=== PATIENT | female | born 1940 | race Caucasian/White ===

== ENCOUNTER → 2016-04-20 | Outpatient (CLI) | payer OTHER ==
[~2016-04-20] MED LIST: CLX20 PO; DICL1GEL28 TOP; DYZ PO; MULT-506 PO; POTAPOW29 PO
[2016-04-20 14:29] LABS: ALT/SGPT 35 U/L (12-78); BLOOD UREA NITROGEN 15 mg/dl (7-18); BUN/CREATININE RATIO 12.8 (10-20); CALCIUM 9.8 mg/dl (8.5-10.1); CARBON DIOXIDE 28 mmol/L (21-32); CHLORIDE 100 mmol/L (98-107); GLUCOSE 114 mg/dl (70-99); POTASSIUM 3.4 mmol/L (3.5-5.1); SODIUM 140 mmol/L (136-145)
[2016-04-20 14:32] LABS: ALB/GLOB RATIO 0.7 (0.9-2); ALKALINE PHOSPHATASE 103 U/L (45-117); AST/SGOT 28 U/L (15-37)
[2016-04-20 14:49] LABS: MANUAL MICROSCOPIC REQUIRED? NO; REVIEW REQ? NO; URINE APPEARANCE CLEAR (CLEAR); URINE BILIRUBIN NEG (NEG); URINE COLOR YELLOW; URINE EPITHELIAL CELL AUTO >30 /lpf (0-5); URINE NITRITE NEG (NEG); URINE PH 6.5 (4.5-7.5); URINE SPECIFIC GRAVITY 1.018 (1.000-1.030); UROBILINOGEN NEG (NEG); ZZUR CULT IF INDIC CLEAN CATCH NO
== END | disposition home or self-care (01) ==
LOC: C.LABBC 09:59
PROVIDERS: ATTEND Internal Medicine
DX: R31.9 Hematuria, unspecified (principal)

== ENCOUNTER → 2016-11-19 | Outpatient (CLI) | payer OTHER ==
[2016-11-19 16:41] LABS: BASO % 0.6 %; BASO ABS # 0.04 K/uL (0-0.2); COMPLETE YES; EOS % 2.8 %; IG% 0.1 %; LYMPH % 35.5 %; LYMPH ABS # 2.37 K/uL (1.2-3.4); MEAN CORPUSCULAR HEMOGLOBIN 32.4 pg (25-34); MEAN CORPUSCULAR HGB CONC 34.1 g/dl (32-36); MEAN PLATELET VOLUME 9.6 fL (7.4-10.4); MONO % 6.3 %; NEUT % 54.7 %; PLATELET COUNT 207 K/uL (130-400); RED BLOOD COUNT 4.63 M/uL (4.2-5.4); WHITE BLOOD COUNT 6.67 K/uL (4.8-10.8)
[2016-11-19 17:13] LABS: ALT/SGPT 24 U/L (12-78); BLOOD UREA NITROGEN 16 mg/dl (7-18); BUN/CREATININE RATIO 16.3 (10-20); CALCIUM 9.8 mg/dl (8.5-10.1); CARBON DIOXIDE 30 mmol/L (21-32); CHLORIDE 101 mmol/L (98-107); CHOLESTEROL 251 mg/dl (0-200); GLUCOSE 97 mg/dl (70-99); POTASSIUM 3.4 mmol/L (3.5-5.1); SODIUM 140 mmol/L (136-145)
[2016-11-19 17:23] LABS: ALB/GLOB RATIO 0.7 (0.9-2); ALKALINE PHOSPHATASE 94 U/L (45-117); AST/SGOT 20 U/L (15-37); CHOLESTEROL/HDL RATIO 4.2; HDL CHOLESTEROL 60 mg/dl; LDL CHOLESTEROL CALCULATED 146 mg/dl; TRIGLYCERIDES 223 mg/dl (0-150); VERY LOW DENSITY LIPOPROT CALC 45 mg/dl
[2016-11-20 05:55] LABS: ESTIMATED AVERAGE GLUCOSE 126 mg/dl; HA1C FLAG Normal (Normal)
--- NOTE | 2016-11-26 11:09 | CODING QUERY MEDICAL NECESSITY ---
CQSUPPORTING DIAGNOSIS NEEDED A supporting diagnosis is required for the test/procedure performed on this patient in order for us to be reimbursed by the patient's insurance. Please provide a supporting diagnosis for the following test/procedure listed below next to the test name along with your signature. *If there is no additional diagnosis for this patient that would support the following test/procedure please document that below next to the test/procedure. Test(s)/Procedure(s) that require a supporting diagnosis: DOS 11/19/16 VITAMIN D TEST VITAMIN B12 TEST Provider Signature: Date: Thank you Arianna Strange Health Information Management Once completed, please kindly fax back to [phone] For questions please call [phone]
== END | disposition home or self-care (01) ==
LOC: C.LABBC 14:06
PROVIDERS: ATTEND Internal Medicine
DX: R53.83 Other fatigue (principal); R73.01 Impaired fasting glucose; I10 Essential (primary) hypertension

== ENCOUNTER → 2016-12-02 | Outpatient (CLI) | payer OTHER | END | disposition home or self-care (01) | LOC: C.PAPS 16:50 | PROVIDERS: ATTEND Obstetrics & Gynecology | DX: C54.1 Malignant neoplasm of endometrium (principal) ==

== ENCOUNTER 2018-06-07 07:17 | Observation (INO) ==
--- NOTE | 2018-05-15 14:22 | Anesthesiology Consultation ---
Date of Service May 15, 2018 Assessment & Plan (1) Encounter for pre-operative examination: - S/P [facility] admission= 02/08-02/10/18= Chemotherapy induced neutropenic fever/sepsis with hypotension/severe dehydration. Chemotherapy induced pancytopenia. Empiric antibiotic therapy with daptomycin/Zosyn IV given. Discharged on doxycycline BID. DINESH with creatinine 1.67 upon admission "normalized" during admission. - Inpatient EKG done 02/07/18 was sinus tachycardia at 121bpm; ST & T wave abnormality, consider lateral ischemia/TWI in anterior leads. Reviewed with Dr. Lai; he recommends having EKG repeated at PCP preop evaluation. Repeat EKG was done 05/26/18 and unremarkable. PCP evaluation= 05/31/18= estimated probability for perioperative RE 0.07% which is moderately low.. vital signs reviewed and were stable today except for low grade temp today to 99.2." PCP is having patient monitor temp at home; "from a general medical standpoint, patient is cleared for surgery pending normal temp on day of surgery.. she states that she is feeling the best that she has been in a while. Energy has been feeling good. No sick symptoms." - Thrombocytopenia stable with platelets at 89 on 05/16/18. OR made aware to have patient come in early for repeat CBC/determination if platelet/blood transfusion needed. Per surgeon, platelet transfusion needed if platelets <50 on repeat labs AM DOS. Per surgeon office, surgeon requests platelets/pRBC's be available for AM DOS if needed but no definitive orders would be needed at this time; it would be dependent upon AM DOS labs (blood bank aware). Will order CBC/T&S for AM DOS. Chart Review Chart Review: Acceptable Risk for Surgery (Pending review of clinical status, temperature and labs AM DOS) and Patient NOT seen in Pre Admission Testing History Surgery Operation Date: 06/07/18 07:00 Proposed Procedures p Left Breast Modified Radical Mastectomy - Vic Wheat DO, FACS Height/Weight Height: 5 ft 7 in Weight: 118.841 kg Allergies Allergy/AdvReac Type Severity Reaction Status Date / Time erythromycin base AdvReac Unknown GI UPSET Verified 05/12/18 12:04 Medications Home Medications Medication Instructions Recorded Confirmed Last Taken cholecalciferol (vitamin D3) 1,000 unit PO QAM 12/28/17 05/12/18 05/12/18 [Vitamin D3] citalopram 10 mg PO QAM 12/28/17 05/12/18 05/12/18 multivitamin 1 tab PO QAM 12/28/17 05/12/18 05/12/18 triamterene-hydrochlorothiazid 1 tab PO QAM 12/28/17 05/12/18 05/12/18 Potassium Aminobenzoate 100 mg PO UD 05/12/18 05/12/18 Unknown Past Medical History Medical History Anxiety Breast cancer S/P CHEMO COMPLETED 03/2018 History of uterine cancer Hypertension Morbid obesity Pancytopenia Past Family History Family History Sister Family history of cancer Past Surgical History Surgical History History of ankle surgery LEFT/NO HARDWARE History of bilateral tubal ligation History of bowel resection R/T BENIGN TUMOR History of colonoscopy History of left breast biopsy History of total abdominal hysterectomy and bilateral salpingo-oophorectomy History of total knee replacement LEFT Social History Smoking Status: Former smoker tobacco type: cigarettes Do You Dip or Chew Tobacco: No Smoking End Date: SMOKED WHEN TEENAGER Hx Alcohol Use: No Hx Substance Use: No substance use type: does not use Testing Electrocardiogram Date: 05/26/18 SR with sinus arrhythmia at 95bpm. NS ST/TWA. Chest X-Ray Date: 02/08/18 Findings: + NAD Cardiac mediastinal and hilar silhouettes are unchanged. Right internal jugular [id number] catheter is in stable positioning. Unchanged mild right hemidiaphragmatic elevation. No pneumothorax, pleural effusion or overt pulmonary edema. Subsegmental left basilar opacities suggest atelectasis. Echocardiogram Date: 04/19/18 EF 55-60%. No RWMA. No significant valvular disease (however valves were not well seen). Technically difficult study. Type I DD. Laboratory Results 05/16/18 WBC 7.12 H/H 10.4/32.3 PLATELETS 89 (surgeon aware) SODIUM 140 POTASSIUM 3.2 (pt on potassium supplementation) CHLORIDE 103 CO2 26 BUN 13 CREATININE 1.33 GLUCOSE 141
[~2018-06-07 07:17] MED LIST changes: +CEFAZOLIN 2000MG 2,000 MG/15 ML SYR IV SCH; -CLX20 PO; -DICL1GEL28 TOP; -DYZ PO; +LR 15ML/HR IV SCH; -MULT-506 PO; -POTAPOW29 PO
[2018-06-07 07:52] LABS: Basophils # (auto) 0.05 K/uL (0-0.2); Basophils % (auto) 0.8 %; Eosinophils % (auto) 4.9 %; Hematocrit (blood only) 35.4 % (37-47); Hemoglobin 11.4 g/dL (12.0-16.0); Immature Granulocytes # (auto) 0.02 K/uL (0.00-0.02); Immature Granulocytes % (auto) 0.3 %; Lymphocytes # (auto) 1.39 K/uL (1.2-3.4); Lymphocytes % (auto) 22.6 %; Mean Corpuscular Volume 107.6 fL (80-100); Mean Platelet Volume 8.7 fL (7.4-10.4); Monocytes # (auto) 0.46 K/uL (0.11-0.59); Monocytes % (auto) 7.5 %; Neutrophils # (auto) 3.92 K/uL (1.4-6.5); Neutrophils % (auto) 63.9 %; Platelet Count 137 K/uL (130-400); RDW Standard Deviation 58.9 fL (36.4-46.3); Red Blood Count 3.29 M/uL (4.2-5.4); White Blood Count 6.14 K/uL (4.8-10.8)
[2018-06-07 07:56] LABS: Mean Corpuscular Hgb Conc 32.2 g/dL (32-36)
[2018-06-07] MEDS ORDERED: fentaNYL citrate 100 MCG/2 ML VIAL ONE ×3 (08:40→11:27)
[2018-06-07] MEDS ORDERED: ONDANSETRON INJ 2 MG/ML 2 ML VIAL ONE (08:40)
[2018-06-07] MEDS ORDERED: MIDAZOLAM HCL 1 MG/ML 2ML VIAL ONE (08:40)
[2018-06-07] MEDS ORDERED: DEXAMETHASONE SOD INJ 4 MG/ML VIAL ONE (08:40)
[2018-06-07] MEDS ORDERED: PROPOFOL IV EMULSION 10 MG/ML 20 ML VIAL IV ONE (08:40)
[2018-06-07] MEDS ORDERED: LIDOCAINE HCL 2% 2 ML VIAL/AMP(20MG/ML) INFIL ONE (08:40)
[2018-06-07] MEDS ORDERED: BUPIVACAINE 0.5 % 5 MG/1 ML MPF 30ML VIAL ONE (09:32)
--- NOTE | 2018-06-07 09:33 | History & Physical Bridge Note ---
Date of Service June 07, 2018 History & Physical Bridge Note I have examined the patient, reviewed the History & Physical and in the interval since the performance of the History & Physical I have noted the following changes of clinical significance: no changes noted
[2018-06-07] MEDS ORDERED: ACETAMINOPHEN 1000 MG/100 ML IV IV ONE (09:36)
[2018-06-07] MEDS ORDERED: PHENYLEPHRINE 100MCG/ML 5ML SYR ONE (10:33)
[2018-06-07] MEDS ORDERED: ePHEDrine sulfate 50 MG/ML SYR ONE (10:33)
[2018-06-07] MEDS ORDERED: BUPIVACAINE LIPOSOME 1.3% 266 MG/20 ML VIAL ONE (11:10)
[2018-06-07] MEDS ORDERED: ONDANSETRON INJ 2 MG/ML 2 ML VIAL IV PRN ×2 (11:12→14:22)
[2018-06-07] MEDS ORDERED: fentaNYL citrate 100 MCG/2 ML VIAL IV PRN (11:12)
[2018-06-07] MEDS ORDERED: ePHEDrine sulfate 50 MG/ML AMP IV PRN (11:12)
[2018-06-07] MEDS ORDERED: PROMETHAZINE HCL 12.5 MG in SODIUM CHLORIDE 0.9% 50 ML IV PRN ×2 (11:12→14:22)
[2018-06-07] MEDS ORDERED: LABETALOL HCL IV 5 MG/ML 20ML IV PRN (11:12)
[2018-06-07] MEDS ORDERED: ATROPINE SULFATE 0.1 MG/ML 10ML SYR IV PRN (11:12)
--- NOTE | 2018-06-07 12:26 | Operative Report ---
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 Long thoracic and thoracodorsal identified and preserved. Good hemostasis. 2 MARVEL drains placed. 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 The risks of the procedure were discussed, all questions were answered, and the patient agreed to proceed with surgery as planned. Description of Procedure The patient was properly identified, consented, and taken to the operating room where she was placed in the supine position. General endotracheal anesthesia was induced. SCDs and a safety belt were placed. Preoperative antibiotics were administered. The patient's left chest, arm, and axilla were prepped and draped in the standard sterile fashion. Surgical timeout was performed and all parties were in agreement that this was the correct patient and procedure to be performed and we continued as planned. A transversely oriented elliptical incision was made that encompassed the nipple-arreolar complex on the left. Flaps were raised to the clavicle superiorly, the sternum medially, and the rectus sheath inferiorly. The breast was then taken off the chest wall including the pectoralis fascia from superior medial to inferior lateral. We then continued the dissection along the lateral border of the pectoralis muscle and continued with the axillary dissection. The clavicopectoral fascia was incised, we continued the dissection along the lateral border of the pectoralis muscle and under the pectoralis minor muscle. We excised level I and 2 lymph nodes. We then dissected tissue away from the axillary vein, being careful to leave a few millimeters of tissue to hopefully prevent lymphedema. We then continued our dissection along the chest wall, and the long thoracic nerve was identified. This was preserved throughout the case. We continued our dissection along the axillary vein until the thoracodorsal neurovascular bundle was identified, and this was also preserved throughout the case. We continued dissection along the medial portion of the latissimus dorsi muscle and down to the subscapularis and teres major muscle. We completed the dissection and the specimen was removed. The specimen was oriented. The wound was irrigated and hemostasis was confirmed. Two 10 mm MARVEL drains were placed, one in the left axilla, one underneath the mastectomy flap. These exited inferior to the incision and were secured into place with 2-0 nylon sutures. Exparel mixed with half percent Marcaine was injected along the flaps. The skin was closed with interrupted 3-0 Vicryl deep dermal sutures, followed by 4-0 Monocryl running subcuticular suture. Dermabond was placed over the wound. The patient was extubated in the operating room and taken to the PACU where she recovered without apparent incident. All sponge, instrument and needle counts were correct at the conclusion of the procedure. The patient tolerated the procedure well. The physician's business services assistant was present and scrubbed for the entire the case. He is critical in positioning the patient, retraction exposure, excision of the specimens, closure of the incisions, placement of drains. I attest to the content of the Intraoperative Record and any orders documented therein. Any exceptions are noted below.
--- NOTE | 2018-06-07 13:46 | Anesthesiology Progress Note ---
Date of Service June 07, 2018 Anesthesia Post Procedure Vital Signs Vital Signs: Temp Pulse Pulse Resp BP Pulse Ox 06/07/18 13:30 95 H 20 135/85 98 06/07/18 13:15 36.7 C 94 H 18 150/75 H 98 06/07/18 13:05 93 H 15 165/91 H 99 06/07/18 12:55 92 H 15 157/98 H 100 06/07/18 12:45 89 15 139/81 99 06/07/18 12:39 36.6 C 92 H 16 153/76 H 99 06/07/18 08:05 36.9 C 95 H 20 133/87 91 Notes Mental Status: alert / awake / arousable Patient Amnestic to Procedure: Yes Nausea / Vomiting: adequately controlled Pain: adequately controlled Airway Patency, RR, SpO2: stable & adequate BP & HR: stable & adequate Hydration State: stable & adequate Anesthetic Complications: no major complications apparent
[2018-06-07] MEDS ORDERED: [UNRECOGNIZED DRUG - OTHER] PO SCH (14:22)
[2018-06-07] MEDS ORDERED: MoRPHine SULFATE 2 MG/ML CARP IV PRN (14:22)
[2018-06-07] MEDS ORDERED: MoRPHine SULFATE 10 MG/ML CARP/VIAL IV PRN (14:22)
[2018-06-07] MEDS ORDERED: OXYCODONE/ACETAMINOPHEN 5mg/325mg TAB PO PRN (14:22)
[2018-06-07] MEDS: LACTATED RINGER'S 1,000 ML IV SCH (15:43)
--- NOTE | 2018-06-08 08:54 | Anesthesiology Progress Note ---
Date of Service June 08, 2018 Anesthesia Post Procedure Vital Signs Vital Signs: Temp Pulse Pulse Resp BP BP Pulse Ox 06/08/18 07:03 36.6 C 83 18 103/64 96 06/08/18 04:00 36.8 C 92 H 16 123/76 94 06/07/18 23:40 36.5 C 90 16 113/68 94 06/07/18 19:53 36.8 C 104 H 16 123/77 95 06/07/18 16:58 36.7 C 97 H 16 118/73 93 06/07/18 16:00 36.6 C 111 H 16 119/76 96 06/07/18 14:59 36.6 C 101 H 16 137/83 94 06/07/18 14:32 96 06/07/18 14:30 36.7 C 84 18 120/69 79 L 06/07/18 14:00 36.3 C L 89 18 136/69 100 06/07/18 13:45 90 20 122/75 98 06/07/18 13:30 95 H 20 135/85 98 06/07/18 13:15 36.7 C 94 H 18 150/75 H 98 06/07/18 13:05 93 H 15 165/91 H 99 06/07/18 12:55 92 H 15 157/98 H 100 06/07/18 12:45 89 15 139/81 99 06/07/18 12:39 36.6 C 92 H 16 153/76 H 99 Pain Intensity Left Foot: Pain Intensity: 3 Left Arm: Pain Intensity: 3 Notes Mental Status: alert / awake / arousable and participated in evaluation Patient Amnestic to Procedure: Yes Nausea / Vomiting: adequately controlled Pain: adequately controlled Airway Patency, RR, SpO2: stable & adequate BP & HR: stable & adequate Hydration State: stable & adequate Anesthetic Complications: no major complications apparent and Pt Satisfied with anesthetic care
[2018-06-08] MEDS ORDERED: TRIAMTERENE/HCTZ 37.5/25MG TAB PO SCH (09:00)
[2018-06-08] MEDS ORDERED: CITALOPRAM 20 MG TAB PO SCH (09:00)
--- NOTE | 2018-06-08 09:51 | Surgery Progress Note ---
Date of Service June 08, 2018 Assessment & Plan (1) Breast cancer: s/p left MRM, doing well d/c today after tolerates reg diet f/u in clinic as scheduled return precautions, activity restrictions, and wound care instructions reviewed path pending Present on Admission?: Yes Subjective 77 year old female pod #1 s/p left modified radical mastectomy. Doing well, weaned off oxygen, no pain. Physical Exam Vital Signs (Past 24 Hours): Last Vital Signs Temp 36.6 C 06/08/18 07:03 Pulse 83 06/08/18 07:03 Resp 18 06/08/18 07:03 BP 103/64 06/08/18 07:03 Pulse Ox 96 06/08/18 07:03 Constitutional: WD/WN, vitals as above Chest (Breasts): Additional Comments: left mastectomy scar with dermabond, no e/o infection. Flaps healthy. MARVEL's with ss drainage.
[2018-06-08] MEDS: LACTATED RINGER'S 1,000 ML IV SCH (10:46)
[2018-06-08] MEDS ORDERED: HEPARIN 100 UNIT/ML 5ML FLUSH ONE (14:03)
--- NOTE | 2018-06-13 03:13 | Discharge Summary ---
PRIMARY DISCHARGE DIAGNOSIS: Inflammatory left breast cancer. PROCEDURE PERFORMED: Left modified radical mastectomy. HOSPITAL COURSE: The patient is a 77-year-old female with left breast cancer taken to the operating room for a modified radical mastectomy. The procedure was well tolerated. She was transferred to the surgical floor for overnight observation. On postoperative day 1, she was having minimal pain. She was able to tolerate regular diet. MARVEL drainage was serosanguineous, 15 mL and 30 mL. She was stable for discharge home with the drains. DISCHARGE INSTRUCTIONS: Discharge home. Follow up with Dr. Wheat' office next week for removal of the drains. Empty and record daily drainage from each drain. DISCHARGE MEDICATIONS: Continue home meds, citalopram 10 mg daily, Vitamin D3 1000 units daily, daily multivitamin, potassium, benzonatate 100 mg daily, triamterene/hydrochlorothiazide 1 tablet daily. Can take [id number] Tylenol as needed for pain. MTDD
== END 2018-06-08 14:32 | disposition home or self-care (01) ==
LOC: ASU 07:17 → 3N 14:12 → INTOOBSV 14:12

== ENCOUNTER 2022-04-17 08:09 | Inpatient (IN) ==
[2022-04-17] MEDS ORDERED: cefTRIAXone SODIUM 2,000 MG/70 ML BAG IV STA (08:20)
--- NOTE | 2022-04-17 08:27 | Emergency Department Note ---
Impression & Plan Cellulitis, Hypoxia, Pneumonia, Acute hyponatremia, Hypokalemia ED Provider Note NAME: RENE AVILA AGE: 81 SEX: F : 1940 ARRIVES VIA: Ambulance INFORMANT: Patient, EMS personnel ED PROVIDER(S): Mann Greenberg DO CHIEF COMPLAINT: Rash HPI: The patient is an 81-year-old female who presented to the emergency department with multiple complaints. The patient states that she has had generalized weakness over the course of the last week. She states that she took medication a week ago for a cold. She states that she started noticing generalized weakness as well as a rash over the course the last week over the last few days she has become much worse. This morning she could not get out of bed so she called 911. She was noted to have hypoxia with an oxygen saturation of 88%. She was treated with a DuoNeb as well as IV Solu-Medrol prior to arrival. The patient is self right now offers very few complaints. She denies having any falls. She denies having any chest pain or difficulty with abdominal pain. The patient has a history of endometrial cancer as well as breast cancer ROS: See above HPI for pertinent positives & negatives. A total of 10 systems reviewed and were otherwise negative. PAST MEDICAL HISTORY: See Below PAST SURGICAL HISTORY: See Below FAMILY HISTORY: See Below SOCIAL HISTORY: See Below HOME MEDICATIONS: See Below ALLERGIES: See Below VITALS: See Below PHYSICAL EXAMINATION: GENERAL: The patient is awake and alert. The patient is comfortable appearing. EYES: The conjunctivae are clear. The pupils are round and reactive. EARS, NOSE, MOUTH AND THROAT: The nose is without any evidence of any deformity. Mucous membranes are dry. There were no lesions in the oral mucosa. NECK: The neck is nontender and supple. RESPIRATORY: Diminished breath sounds are noted in the left lung field. There were rales throughout the right lung field. There is no tachypnea or co nversational dyspnea. CARDIOVASCULAR: Tachycardic and irregular heart sounds were noted to auscultat ion. There is no definite murmur. GASTROINTESTINAL: The abdomen is soft. Abdomen is nontender. MUSCULOSKELETAL/EXTREMITIES: There is no evidence of gross deformity full range of motion is noted in the hips and shoulders. SKIN: There is a diffuse erythematous rash noted mostly over the trunk that was not raised. It had clear borders. It was blanchable over the majority of the rash. The rash does not appear to be painful. NEUROLOGIC: Patient is awake alert and oriented x3 MEDICAL DECISION MAKING: The patient is an 81-year-old female who presented to the emergency department by ambulance. The patient had findings consistent with cellulitis over her trunk. She was treated with IV antibiotics. I discussed the patient's laboratory and radiographic studies with her. She had an elevation in her lactic acid however her blood pressure was very high on initial evaluation. I do not feel that she is volume depleted and I do not feel that she would require a true fluid bolus at this time. I discussed the patient's laboratory and radiographic studies [facility] to evaluate the patient. The patient was also found to have hypokalemia and was treated with potassium replacement. Patient also had an elevation in her troponin. The patient was treated with IV Solu-Medrol and DuoNeb by the chronic care nurse prior to arrival. She was placed on supplemental oxygen. Triage Nursing notes reviewed. Prior medical records reviewed Vital Signs: reviewed and remarkable for no significant abnormalities Differential diagnosis: Infection, dehydration, metabolic abnormality, hypo/hyperglycemia, electrolyte disturbance, anemia, hypoxia, cardiac sources, intracerebral event, toxicologic, neurologic, as well as other pathologies. ER treatment provided: See below Diagnostics interpreted by me: ECG: EKG was obtained in the emergency department. My interpretation is sinus tachycardia 124 bpm. PACs as well as PVCs were noted. Nonspecific ST segment depressions were noted in the apical and low lateral leads. This was compared to a tracing from August 24, 2021. No specific changes were noted however the ectopy was not noted on the previous tracing. Cardiac Monitoring: An order was placed for continuous cardiac monitoring. The monitor shows a rate of 99 bpm with sinus rhythm. Laboratory studies: As stated above and show below. Imaging studies: See below. Radiographic imaging was reviewed by myself Consultation(s): I discussed this case with Dr. Wheeler who [facility]. Past Med/Surg History Medical History Anxiety MILD Breast cancer S/P CHEMO COMPLETED 03/2018- left breast RECENTLY RELEASED FROM ONCOLOGIST/ANNUAL VISITS NOW Extreme obesity History of uterine cancer REMOTE HX, SX INTERVENTION/ ? HX FEW RADIATION TX'S, PT NOT SURE Hypertension Port-A-Cath in place Rash Chronic dermatitis under surveillance by PCP (improved with abx) Surgical History H/O mastectomy LEFT H/O oral surgery History of ankle surgery LEFT/NO HARDWARE History of bilateral tubal ligation History of bowel resection R/T BENIGN TUMOR History of colonoscopy History of left breast biopsy History of removal of Port-a-Cath (09/02/21) Removal of Access Port Right(Right) - Vic Wheat DO, FACS History of total abdominal hysterectomy and bilateral salpingo-oophorectomy History of total knee replacement LEFT Family History Sister Family history of cancer Daughter Hx of CABG Coronary heart disease Myocardial infarction Father COPD (chronic obstructive pulmonary disease) Grandfather (Maternal) Colorectal cancer Denies family history of Ovarian cancer Prostate cancer Breast cancer Social History Smoking Status: Former smoker Second Hand Exposure: No; Hx Alcohol Use: No Hx Substance Use: No Preferred Language: Turkmen Communication Ability: Effective Visual Impairment: No Limitations Hearing Ability: Normal Plaster Pattern Caster Required: No Beliefs That Will Affect Care: None marital status: Single Current Living Situation: Family Current Living Situation Comment: DAUGHTER current occupational status: retired Feels Safe at Home: Yes Childhood Exposure to Second-Hand Smoke: No Dental Care, Regularly: No Physical Activity Frequency: 1-2 Times per Week Seatbelt Use: always Sunscreen Use: Yes Assistive Devices: Cane, Denture - Upper, Denture - Lower and Glasses Allergies Allergies Allergy/AdvReac Type Severity Reaction Status Date / Time iodine Allergy Mild Rash Verified 02/18/22 19:49 erythromycin base AdvReac Unknown GI UPSET Verified 12/28/21 08:32 gabapentin AdvReac Unknown make sick Verified 12/28/21 08:32 - nausea Statins AdvReac Unknown DIZZY AND Uncoded 12/28/21 08:32 LIGHTHEADEDNESS Home Meds Home Medications Medication Instructions Recorded Confirmed anastrozole 1 mg tablet 1 mg PO QAM 01/23/19 02/04/22 potassium gluconate 595 mg (99 mg) 99 mg PO QID 10/17/19 02/04/22 tablet,extended release calcium carbonate 600 mg calcium 600 mg PO DAILY 03/11/21 02/04/22 (1,500 mg) tablet multivitamin 1 tab PO DAILY 11/06/21 02/04/22 zinc gluconate 30 mg tablet 30 mg PO DAILY 12/15/21 02/04/22 Previous Rx's Medication Instructions Recorded multivitamin 1 tab PO QAM #30 tabs 07/26/18 citalopram 10 mg tablet 10 mg PO QAM #90 tabs 07/14/21 furosemide 20 mg tablet (Lasix) 20 mg PO DAILY #30 tabs 11/06/21 Results & Data (ED) Vital Signs Vital Signs - 24 hr 04/17/22 08:20 04/17/22 08:20 04/17/22 08:20 Temperature 36.9 C Temperature Source Oral Pulse Rate 120 H Pulse Rate [Right Finger] Pulse Rhythm Irregular Pulse Rhythm [Right Finger] Pulse Strength Normal Pulse Strength [Right Finger] Respiratory Rate 22 Respiratory Effort / Characteristics Spontaneous Respiratory Depth Normal Respiratory Pattern Regular Blood Pressure 159/132 H Blood Pressure [Right Arm] Blood Pressure Mean 141 Blood Pressure Mean [Right Arm] Blood Pressure Position Lying Blood Pressure Position [Right Arm] Pulse Oximetry 93 87 L 93 Oxygen Delivery Method Nasal Cannula Nasal Cannula Nasal Cannula Oxygen Flow Rate 3 0 3 Sepsis Recent Fever Within 48 Hours No Sepsis New/Unexplained Change in Mental Status No Sepsis Action Taken by Nursing MD Previously Notified Oxygen Flow Rate - Titration 3 Pulse Oximetry Post Tiitration 93 04/17/22 08:39 04/17/22 09:00 Temperature Temperature Source Pulse Rate 119 H Pulse Rate [Right Finger] 99 H Pulse Rhythm Pulse Rhythm [Right Finger] Irregular Pulse Strength Pulse Strength [Right Finger] Normal Respiratory Rate 26 H Respiratory Effort / Characteristics Spontaneous Respiratory Depth Normal Respiratory Pattern Regular Blood Pressure Blood Pressure [Right Arm] 135/68 Blood Pressure Mean Blood Pressure Mean [Right Arm] 90 Blood Pressure Position Blood Pressure Position [Right Arm] Lying Pulse Oximetry 94 Oxygen Delivery Method Nasal Cannula Oxygen Flow Rate 3 Sepsis Recent Fever Within 48 Hours Sepsis New/Unexplained Change in Mental Status Sepsis Action Taken by Nursing Oxygen Flow Rate - Titration Pulse Oximetry Post Tiitration Home Medications Current Medication List: was personally reviewed by me Laboratory Data Attestation: I reviewed the patient's lab results. 04/17/22 08:18 04/17/22 08:18 Lab Results 04/17/22 04/17/22 04/17/22 Range/Units 08:18 08:18 08:18 WBC 18.08 H (4.8-10.8) K/ul RBC 4.41 (4.20-5.40) M/uL Hgb 14.0 (12.0-16.0) g/dl Hct 41.9 (37.0-47.0) % MCV 95.0 (80.0-100.0) fL MCH 31.7 (25.0-34.0) pg MCHC 33.4 (32.0-36.0) g/dL RDW Std Deviation 48.3 H (36.4-46.3) fL RDW Coeff of Rosalinda 13.8 (11.5-14.5) % Plt Count 223 (130-400) K/uL MPV 9.3 L (9.4-12.4) fL Immature Gran % (Auto) 2.9 % Neut % (Auto) 88.5 % Lymph % (Auto) 6.7 % Blaine % (Auto) 1.5 % Eos % (Auto) 0.0 % Baso % (Auto) 0.4 % Neut # (Auto) 16.00 H (1.40-6.50) K/uL Lymph # (Auto) 1.21 (1.2-3.4) K/uL Blaine # (Auto) 0.28 (0.11-0.59) K/uL Eos # (Auto) 0.00 (0-0.50) K/uL Baso # (Auto) 0.07 (0-0.2) K/uL Immature Gran # (Auto) 0.52 H (0.01-0.20) K/uL Polychromasia 1+ PT 11.3 (9.0-12.0) Seconds INR 1.1 (0.9-1.1) APTT 29.6 (21.0-31.0) Seconds PTT Ratio 1.1 VBG pH (7.36-7.41) VBG pCO2 (38-50) mmHg VBG pO2 mmHg VBG HCO3 mmol/L VBG O2 Saturation % VBG Base Excess mEq/L Sodium 132 L (136-145) mmol/L Potassium 3.0 L (3.5-5.1) mmol/L Chloride 93 L (98-107) mmol/L Carbon Dioxide 26 (21-32) mmol/L Anion Gap 13 H (3-11) BUN 14 (6-23) mg/dl Creatinine 1.29 H (0.6-1.2) mg/dl Est Cr Clr Drug Dosing 49.4 ml/min Est GFR ( Amer) 45.3 ml/min Est GFR (Non-Af Amer) 39.1 ml/min BUN/Creatinine Ratio 10.9 (10-20) Glucose 200 H (70-99(Fasting)) mg/dl Lactate (0.4-2.0) mmol/L Calcium 9.3 (8.5-10.1) mg/dl Magnesium 1.5 L (1.7-2.4) mg/dl Total Bilirubin 0.9 (0.2-1.0) mg/dl Direct Bilirubin 0.3 H (0-0.2) mg/dl AST 59 H (13-39) U/L ALT 39 (7-52) U/L Alkaline Phosphatase 195 H (34-104) U/L Troponin I High Sens 25.2 H (0-14) pg/ml B-Natriuretic Peptide (0-100) pg/ml Total Protein 7.0 (6.0-8.3) gm/dl Albumin 2.9 L (3.4-5.0) gm/dl Procalcitonin (0-0.5) ng/ml SARS-CoV-2, RNA, NAAT (NEGATIVE) 04/17/22 04/17/22 04/17/22 Range/Units 08:18 08:35 08:35 WBC (4.8-10.8) K/ul RBC (4.20-5.40) M/uL Hgb (12.0-16.0) g/dl Hct (37.0-47.0) % MCV (80.0-100.0) fL MCH (25.0-34.0) pg MCHC (32.0-36.0) g/dL RDW Std Deviation (36.4-46.3) fL RDW Coeff of Rosalinda (11.5-14.5) % Plt Count (130-400) K/uL MPV (9.4-12.4) fL Immature Gran % (Auto) % Neut % (Auto) % Lymph % (Auto) % Blaine % (Auto) % Eos % (Auto) % Baso % (Auto) % Neut # (Auto) (1.40-6.50) K/uL Lymph # (Auto) (1.2-3.4) K/uL Blaine # (Auto) (0.11-0.59) K/uL Eos # (Auto) (0-0.50) K/uL Baso # (Auto) (0-0.2) K/uL Immature Gran # (Auto) (0.01-0.20) K/uL Polychromasia PT (9.0-12.0) Seconds INR (0.9-1.1) APTT (21.0-31.0) Seconds PTT Ratio VBG pH 7.47 H (7.36-7.41) VBG pCO2 38 (38-50) mmHg VBG pO2 53 mmHg VBG HCO3 28 mmol/L VBG O2 Saturation 89.7 % VBG Base Excess 3.9 mEq/L Sodium (136-145) mmol/L Potassium (3.5-5.1) mmol/L Chloride (98-107) mmol/L Carbon Dioxide (21-32) mmol/L Anion Gap (3-11) BUN (6-23) mg/dl Creatinine (0.6-1.2) mg/dl Est Cr Clr Drug Dosing ml/min Est GFR ( Amer) ml/min Est GFR (Non-Af Amer) ml/min BUN/Creatinine Ratio (10-20) Glucose (70-99(Fasting)) mg/dl Lactate 3.1 H* (0.4-2.0) mmol/L Calcium (8.5-10.1) mg/dl Magnesium (1.7-2.4) mg/dl Total Bilirubin (0.2-1.0) mg/dl Direct Bilirubin (0-0.2) mg/dl AST (13-39) U/L ALT (7-52) U/L Alkaline Phosphatase (34-104) U/L Troponin I High Sens (0-14) pg/ml B-Natriuretic Peptide (0-100) pg/ml Total Protein (6.0-8.3) gm/dl Albumin (3.4-5.0) gm/dl Procalcitonin 1.21 H (0-0.5) ng/ml SARS-CoV-2, RNA, NAAT (NEGATIVE) 04/17/22 04/17/22 Range/Units 08:35 09:51 WBC (4.8-10.8) K/ul RBC (4.20-5.40) M/uL Hgb (12.0-16.0) g/dl Hct (37.0-47.0) % MCV (80.0-100.0) fL MCH (25.0-34.0) pg MCHC (32.0-36.0) g/dL RDW Std Deviation (36.4-46.3) fL RDW Coeff of Rosalinda (11.5-14.5) % Plt Count (130-400) K/uL MPV (9.4-12.4) fL Immature Gran % (Auto) % Neut % (Auto) % Lymph % (Auto) % Blaine % (Auto) % Eos % (Auto) % Baso % (Auto) % Neut # (Auto) (1.40-6.50) K/uL Lymph # (Auto) (1.2-3.4) K/uL Blaine # (Auto) (0.11-0.59) K/uL Eos # (Auto) (0-0.50) K/uL Baso # (Auto) (0-0.2) K/uL Immature Gran # (Auto) (0.01-0.20) K/uL Polychromasia PT (9.0-12.0) Seconds INR (0.9-1.1) APTT (21.0-31.0) Seconds PTT Ratio VBG pH (7.36-7.41) VBG pCO2 (38-50) mmHg VBG pO2 mmHg VBG HCO3 mmol/L VBG O2 Saturation % VBG Base Excess mEq/L Sodium (136-145) mmol/L Potassium (3.5-5.1) mmol/L Chloride (98-107) mmol/L Carbon Dioxide (21-32) mmol/L Anion Gap (3-11) BUN (6-23) mg/dl Creatinine (0.6-1.2) mg/dl Est Cr Clr Drug Dosing ml/min Est GFR ( Amer) ml/min Est GFR (Non-Af Amer) ml/min BUN/Creatinine Ratio (10-20) Glucose (70-99(Fasting)) mg/dl Lactate (0.4-2.0) mmol/L Calcium (8.5-10.1) mg/dl Magnesium (1.7-2.4) mg/dl Total Bilirubin (0.2-1.0) mg/dl Direct Bilirubin (0-0.2) mg/dl AST (13-39) U/L ALT (7-52) U/L Alkaline Phosphatase (34-104) U/L Troponin I High Sens (0-14) pg/ml B-Natriuretic Peptide 80 (0-100) pg/ml Total Protein (6.0-8.3) gm/dl Albumin (3.4-5.0) gm/dl Procalcitonin (0-0.5) ng/ml SARS-CoV-2, RNA, NAAT NEGATIVE (NEGATIVE) Administered Medications Discontinued Medications Ceftriaxone Sodium (Rocephin) 2,000 mg in 70 mls @ 140 mls/hr IV NOW STA Stop: 04/17/22 08:49 Last Infusion: 04/17/22 09:40 Dose: 0 mls/hr Documented By: Admin: 04/17/22 09:07 Dose: 140 mls/hr Documented By: AP Imaging Data Radiologist's Impression: Chest X-Ray 04/17/22 08:20 XR chest 1V portable HISTORY: 81 years-old Female Sepsis acute sepsis COMPARISON: 08/24/2021 TECHNIQUE: AP view of the chest FINDINGS: Cardiac silhouette is enlarged. Mild right hemidiaphragmatic elevation. Mild right basilar atelectasis. No pneumothorax, large pleural effusion or overt pulmonary edema. Degenerative changes of the shoulders and spine. Left axillary surgical clips. IMPRESSION: 1. Cardiomegaly without acute process. 2. Unchanged right hemidiaphragmatic elevation with mild right basilar atelectasis. ACT 112: Negative or not required by law. The above report was generated using voice recognition software. It may contain grammatical, syntax or spelling errors. Electronically signed by: Ponce Phan M.D. 04/17/2022 9:11 AM Discharge Plan Visit Data Chief Complaint: Illness Stated Complaint: DIZZINESS, RASH, HYPOXIA ED Provider: Dionicio,Mann R Discharge Problem: Cellulitis, Hypoxia, Pneumonia, Acute hyponatremia, Hypokalemia Patient Disposition: Being Evaluated by Hospitalist Forms Stand Alone Forms: My [facility] Prescriptions Prescriptions: No Action calcium carbonate 600 mg calcium (1,500 mg) tablet 600 mg PO DAILY multivitamin Tablet 1 tab PO DAILY furosemide [Lasix] 20 mg tablet 20 mg PO DAILY Qty: 30 11RF zinc gluconate 30 mg tablet 30 mg PO DAILY citalopram 10 mg tablet 10 mg PO QAM Qty: 90 3RF multivitamin tablet 1 tab PO QAM Qty: 30 0RF anastrozole 1 mg tablet 1 mg PO QAM potassium gluconate 595 mg (99 mg) Tablet Extended Release 99 mg PO QID Referrals Referrals: Rico Goetz MD [Primary Care Provider] -
[2022-04-17 08:32] LABS: Hematocrit (blood only) 41.9 % (37.0-47.0); Mean Corpuscular Hemoglobin 31.7 pg (25.0-34.0); Mean Corpuscular Hgb Conc 33.4 g/dL (32.0-36.0); Mean Platelet Volume 9.3 fL (9.4-12.4); Platelet Count 223 K/uL (130-400); RDW Coefficient of Variation 13.8 % (11.5-14.5); RDW Standard Deviation 48.3 fL (36.4-46.3); Red Blood Count 4.41 M/uL (4.20-5.40); White Blood Count 18.08 K/ul (4.8-10.8)
[2022-04-17 08:52] LABS: Albumin Level 2.9 gm/dl (3.4-5.0); BUN Creatinine Ratio 10.9 (10-20); Bilirubin Direct 0.3 mg/dl (0-0.2); Bilirubin,Total 0.9 mg/dl (0.2-1.0); Calcium 9.3 mg/dl (8.5-10.1); Creatinine Clr Calc Pharmacy 49.4 ml/min; Est GFR (African American) 45.3 ml/min; Est GFR (Non-African American) 39.1 ml/min; Magnesium 1.5 mg/dl (1.7-2.4)
[2022-04-17 08:54] LABS: Basophils # (auto) 0.07 K/uL (0-0.2); Basophils % (auto) 0.4 %; Immature Granulocytes # (auto) 0.52 K/uL (0.01-0.20); Immature Granulocytes % (auto) 2.9 %; Lymphocytes # (auto) 1.21 K/uL (1.2-3.4); Lymphocytes % (auto) 6.7 %; Monocytes # (auto) 0.28 K/uL (0.11-0.59); Monocytes % (auto) 1.5 %; Neutrophils % (auto) 88.5 %; Polychromasia 1+
[2022-04-17 08:56] LABS: Base Excess VBG 3.9 mEq/L; HCO3 VBG 28 mmol/L; Oxygen Saturation VBG 89.7 %; PCO2 VBG 38 mmHg (38-50); PO2 VBG 53 mmHg; pH VBG 7.47 (7.36-7.41)
[2022-04-17 08:58] LABS: Troponin I High Sensitivity 25.2 pg/ml (0-14)
[2022-04-17 09:01] LABS: INR 1.1 (0.9-1.1); Partial Thromboplastin Ratio 1.1; Partial Thromboplastin Time 29.6 Seconds (21.0-31.0); Prothrombin Time 11.3 Seconds (9.0-12.0)
--- NOTE | 2022-04-17 09:12 | XRay Report ---
XR chest 1V portable HISTORY: 81 years-old Female Sepsis acute sepsis COMPARISON: 08/24/2021 TECHNIQUE: AP view of the chest FINDINGS: Cardiac silhouette is enlarged. Mild right hemidiaphragmatic elevation. Mild right basilar atelectasi s. No pneumothorax, large pleural effusion or overt pulmonary edema. Degenerative changes of the shou lders and spine. Left axillary surgical clips. IMPRESSION: 1. Cardiomegaly without acute process. 2. Unchanged right hemidiaphragmatic elevation with mild right basilar atelectasis. ACT 112: Negative or not required by law. The above report was generated using voice recognition software. It may contain grammatical, syntax o r spelling errors. Electronically signed by: Ponce Phan M.D. 04/17/2022 9:11 AM
--- NOTE | 2022-04-17 10:05 | History & Physical Report ---
Date of Service April 17, 2022 Assessment & Plan (1) Cellulitis: Plan: Sepsis, suspect 2/2 cellulitis vs pneumonia Tachycardic, elevated lactate, elevated Pro-Abdoulaye with mildly elevated troponin transaminitis and DINESH on admission Patient with chest rash which started on left breast 1 week ago and has spread down back, left arm, and over to the left breast. Warm, erythematous, mildly tender. See photo in H&P physical exam. Was marked with surgical pen at 10 - Rash is with a contact dermatitis/tank top distribution; pt denies any new detergents, exposures, medications. Rash started on L breast and spread a snoted. CXR without evidence of pneumonia, patient is with acute hypoxia/elevated Pro- Abdoulaye/wheezing on admission. CTchest Noncon pending. BNP normal, no history of heart failure + 1 L Normosol bolus + 1L IVFM in addition to IV electrolyte repletion ordered, repeat lactate/troponin pending - Pt tolerating PO Acute hypoxic respiratory failure, wheezing Patient with 2 to 3 days of cough, mild wheezing without history of continuous tobacco use/COPD. She is with a leukocytosis and elevated Pro-Abdoulaye suspicious for cellulitis origin as above, but differential includes pneumonia. Noncon CT is pending. In the setting of her comorbidities and cellulitis D- dimer is unlikely to be helpful. She is at risk for blood clots with low mobility and chronic venous stasis, CTA was deferred due to DINESH on admission. Dopplers are pending. If Dopplers are negative, patient responds antibiotics, but remains hypoxic/tachycardic would obtain CTA of the chest at that time. Improved with supplemental oxygen, DuoNeb No PFTs available for review Patient with rash in the setting of infection, platelet count normal, coags normal. - Last echo 09/2018: EF 55 to 60%, borderline concentric LVH, no significant change from study 3 months prior, normal LV systolic function, no regional wall motion abnormality BNP normal. Repeat echo pending. COVID-negative Hypokalemia Potassium 3.0, magnesium 1.5 on admission Repletion ordered, trended History of breast cancer ductal carcinoma left, endometrial cancer, s/p hysterectomy Continue anastrozole Anxiety/depression Continue citalopram daily Patient has had several friends recently and endorses that she was feeling depressed and stopped taking medications prior to her symptom onset. Would benefit from outpatient follow-up of depression/anxiety, is on citalopram which can be continued but do not expect any up titration of this medication to produce benefit in an acute timeframe, can have adjustments and follow-up in 4-6-week intervals Chronic venous insufficiency Continue leg elevation Lasix held for clinical volume depletion and suspected pneumonia Patient is at risk for DVT/PE, Dopplers pending. Has had increased leg swelling in the last few days in the setting of stopping her medications including Lasix. History of prediabetes Without history of diabetes or antiglycemic treatment Admitting BSG 200 Weight-based SSI ordered, A1c pending ?Porcelina Gallbladder - Noted on prior imaging - Recommend followup decidacted CT-A/P for evaluation after above DVT prophylaxis: Heparin 2/2 DINESH Diet: DM Dispo: Medical telemetry while on cardiac eval CODE STATUS: DNR/DNI (2) Acute respiratory failure with hypoxia: (3) Chronic venous insufficiency: (4) Depression: (5) Hypokalemia: (6) Hypertension: (7) Hyperlipidemia: (8) Prediabetes: (9) Venous stasis dermatitis: (10) Breast cancer: History of Present Illness Primary Care Provider: Rico Goetz MD Barb Mobley is a 81-year-old female with past medical history of Who presented with generalized weakness of 1 week after having URI symptoms, and a generalized rash. In the ER was hypoxic to 88% was treated with DuoNebs and methylprednisolone. EKG review showed nonspecific ST segment depressions in apical and lateral leads. Similar tracing compared to 07/2021. On ER assessment patient has a leukocytosis of 18, coag panel is normal, VB.4 /53/28, sodium 132, hypokalemia at 3.0, creatinine baseline of generally less than 1.2, admitting creatinine 1.29, lactate of 3.1 pending repeat, hypomagnesemia at 1.5, AST of 59, a mild high-sensitivity troponin elevation of 25.2, and elevated procalcitonin at 1.21. CXR shows cardiomegaly without acute process, right hemidiaphragm elevation with basilar atelectasis. 1 week ago was feeling 'a little depressed and stopped taking my med. Nothign else going on, I had no excuse just was in a funk. I have a good life and well protected with nofinancial woes just felt depressed.' Since many of her friends and classmates have which has been weighing on her and she's been down in the dumps. 1-2 days ago started feeling much weaker. Has had a rash on her chest which is a little tender which started 6-7 days ago. No fevers, or chills, or night sweats but is chronically cold. No shortness of breath. Rash is a little tender, but otherwise no chest pain. ONly gets out of bed to go to the bathroom. No history of heart failure 'I've had a lot of tests for that, no heart failure but I do get some swelling in my legs.' Chronically venous stasis and swelling in legs, has not changed recently. 'If I took meds it wouldn't be a problem.' Sees wound care for venous stasis ulcers. Has not been wearing TEDs lately. No history of COPD. +hacking cough for 3 days, nonproductive. NO history of similar. Pt thinks no wheezing, daughter has noticed a little raspy wheeze which is unusual for Barb. Former smoker for rarely in early 20s, no use in last 60 years. Does not drink alcohol. Denies any abdominal pain, nausea/vomiting/diarrhea, is hungry and reports has been eating and drinking 'ok' in the last few days MEd review: Anastrazone, citalopram, furosemide daily, vitmains. Thinks she takes a blood pressur emedicine but isn't sure, daughter is checking for list to reconcile. Uses [employer] [facility]. Medical History: Reviewed Medications: Reviewed Surgical History: Reviewed Allergies: Reviewed. Rash to erythromycin and statins. Social History: Tobacco as noted. No etoh. Code Status: DNR/DNi Allergies Allergy/AdvReac Type Severity Reaction Status Date / Time iodine Allergy Mild Rash Verified 02/18/22 19:49 erythromycin base AdvReac Unknown GI UPSET Verified 12/28/21 08:32 gabapentin AdvReac Unknown make sick Verified 12/28/21 08:32 - nausea Thjxkaa-PEN-SlO Reductase AdvReac DIZZY Verified 04/17/22 10:33 Inhibitor LIGHTHEADEDNESS Home Medications Medication Instructions Recorded Confirmed Type multivitamin 1 tab PO QAM #30 tabs 07/26/18 02/04/22 Rx anastrozole 1 mg tablet 1 mg PO QAM 01/23/19 02/04/22 History potassium gluconate 595 mg (99 mg) 99 mg PO QID 10/17/19 02/04/22 History tablet,extended release calcium carbonate 600 mg calcium 600 mg PO DAILY 03/11/21 02/04/22 History (1,500 mg) tablet citalopram 10 mg tablet 10 mg PO QAM #90 tabs 07/14/21 02/04/22 Rx furosemide 20 mg tablet (Lasix) 20 mg PO DAILY #30 tabs 11/06/21 04/17/22 Rx multivitamin 1 tab PO DAILY 11/06/21 02/04/22 History zinc gluconate 30 mg tablet 30 mg PO DAILY 12/15/21 02/04/22 History Past Med/Surg History Medical History (Updated 04/17/22 @ 10:57 by Jerald Terrazas MD) Anxiety MILD Breast cancer S/P CHEMO COMPLETED 03/2018- left breast RECENTLY RELEASED FROM ONCOLOGIST/ANNUAL VISITS NOW Extreme obesity History of uterine cancer REMOTE HX, SX INTERVENTION/ ? HX FEW RADIATION TX'S, PT NOT SURE Hypertension Port-A-Cath in place Rash Chronic dermatitis under surveillance by PCP (improved with abx) Surgical History H/O mastectomy LEFT H/O oral surgery History of ankle surgery LEFT/NO HARDWARE History of bilateral tubal ligation History of bowel resection R/T BENIGN TUMOR History of colonoscopy History of left breast biopsy History of removal of Port-a-Cath (09/02/21) Removal of Access Port Right(Right) - Vic Wheat DO, FACS History of total abdominal hysterectomy and bilateral salpingo-oophorectomy History of total knee replacement LEFT Family History Sister Family history of cancer Daughter Hx of CABG Coronary heart disease Myocardial infarction Father COPD (chronic obstructive pulmonary disease) Grandfather (Maternal) Colorectal cancer Denies family history of Ovarian cancer Prostate cancer Breast cancer Social History Smoking Status: Former smoker Second Hand Exposure: No; Hx Alcohol Use: No Hx Substance Use: No Preferred Language: Sinhala Communication Ability: Effective Visual Impairment: No Limitations Hearing Ability: Normal Reversal Print Inspector Required: No Beliefs That Will Affect Care: None marital status: Single Current Living Situation: Family Current Living Situation Comment: DAUGHTER current occupational status: retired Feels Safe at Home: Yes Childhood Exposure to Second-Hand Smoke: No Dental Care, Regularly: No Physical Activity Frequency: 1-2 Times per Week Seatbelt Use: always Sunscreen Use: Yes Assistive Devices: Cane, Denture - Upper, Denture - Lower and Glasses Review of Systems Review of Systems: All systems reviewed & are unremarkable except as noted in HPI & below Physical Exam Physical Exam: General: A&Ox3. NAD. Cooperative. HEENT: Atraumatic, normocephalic. Skin: Slightly raised, mildly tender, warm and erythematous patch extending from left anterior chest over to the right breast, down the left back, and left arm. See photo below. Pulm: Trace expiratory wheezes, no rales/rhonchi. Symmetrical chest rise. No increased work of breathing. Cardiac: Tachycardic intermittently, -mrg. Radial pulses intact and symmetrical. Abdominal: Nontender, nondistended, soft. BS present. Extremities: Moves all extremities equally. Ankle dorsiflexion/plantarflexion intact. Soft touch in hands and feet intact without asymmetry. Chronic venous stasis of the anterior beard on the legs bilaterally, scabbed over small ulcer on the anterior right and left beard without evidence of acute erythema or cellulitis. Symmetrical bilateral swelling with ankle edema. Results & Data Results & Data ([facility]) Vital Signs (Past 12 Hours) Vital Signs Temp Pulse Resp BP Pulse Ox O2 Del Method O2 Flow Rate 04/17/22 08:39 119 H 04/17/22 08:20 93 Nasal Cannula 3 04/17/22 08:20 87 L Nasal Cannula 0 04/17/22 08:20 36.9 C 120 H 22 159/132 H 93 Nasal Cannula 3 PG Care Time/CCT Total # of Minutes Spent Total Time Spent with Patient: Total time spent is greater than 50% in coordination of care (as documented) at patient's floor/unit and/or counseling patient: Coding Level of Care Code 65344 INT INP/OBS CARE 2/55MIN Diagnoses Cellulitis L03.313 Site of cellulitis: trunk Site of cellulitis of trunk: chest wall Acute respiratory failure with hypoxia J96.01 Chronic venous insufficiency I87.2 Depression F32.9 Hypokalemia E87.6 Hypertension I10 Hyperlipidemia E78.5 Prediabetes R73.03 Venous stasis dermatitis I87.2 Breast cancer C50.919 (1) Cellulitis Site of cellulitis: trunk Site of cellulitis of trunk: chest wall Qualified Code(s): L03.313 - Cellulitis of chest wall
[2022-04-17] MEDS ORDERED: POTASSIUM CHLORIDE / WTR 10 MEQ/100 ML PLCT IV ONE (10:09)
[2022-04-17] MEDS ORDERED: POTASSIUM CHLORIDE CRTAB 20 MEQ TABCR PO STA (10:09)
[2022-04-17] MEDS ORDERED: NORMOSOL-R 1,000 ML IV ONE (10:28)
[2022-04-17] MEDS: MAGNESIUM OXIDE 400 MG TAB PO SCH ×2 (11:19→20:59)
--- NOTE | 2022-04-17 11:37 | CT Scan Report ---
CT chest diagnostic wo con CT DOSE: 1127.59 mGy.cm CLINICAL HISTORY: 81 years-old Female with hypoxia. Acute hypoxia in a patient with history of breas t cancer TECHNIQUE: Multiaxial CT images of the chest were performed without contrast. A dose lowering techni que was utilized adhering to the principles of ALARA. COMPARISON: PET CT 12/19/2017 FINDINGS: Postoperative changes of the left chest wall suggestive of mastectomy. Limited study second kimberlyn to lack of contrast upper cavity positioning. Heterogeneous enlarged right thyroid lobe redemonst rated. Mediastinal lymphadenopathy measures within the upper limits of normal at 10 mm, favored to be benign. Chronic right hemidiaphragmatic elevation. No pneumothorax. Mild intralobular septal an bronchial wal l thickening. The left lung is generally clear. Mild atelectasis with air trapping noted bilaterally. Mild right basilar consolidation. No suspicious pulmonary nodules or masses. Decreased AP dimension of the trachea. 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 Hepatic steatosis. Unremarkable so ft tissues. Degenerative changes of the shoulders and spine. Surgical clips of the left axilla. IMPRESSION: 1. Limited exam as above. 2. Chronic right hemidiaphragmatic elevation with right basilar opacities suggestive of atelectasis. Pneumonia considered less likely. 3. 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 4. Chronic findings as above. ACT 112: Negative or not required by law. Electronically signed by: Ponce Phan M.D. 04/17/2022 11:35 AM
--- NOTE | 2022-04-17 11:44 | Electrocardiogram Report ---
Test Reason : Blood Pressure : / mmHG Vent. Rate : 124 BPM Atrial Rate : 125 BPM P-R Int : 132 ms QRS Dur : 100 ms QT Int : 318 ms P-R-T Axes : 048 020 059 degrees QTc Int : 456 ms Sinus tachycardia with Premature atrial complexes and PVC's Nonspecific ST abnormality Abnormal ECG When compared with ECG of 24-AUG-2021 09:52, Vent. rate has increased BY 41 BPM PVC's are new Confirmed by Juwan Wise ([id number]) on 04/17/2022 11:43:35 AM Referred By: REFERRED SELF Confirmed By:Juwan Wise
[2022-04-17 12:44] LABS: Adenovirus PCR Not Detected (NotDetected); Bordetella parapertussis PCR Not Detected (NotDetected); Bordetella pertussis PCR Not Detected (NotDetected); Chlamydia pneumoniae PCR Not Detected (NotDetected); Coronavirus 229E PCR Not Detected (NotDetected); Coronavirus CoV-2 (COVID19)PCR Not Detected (NotDetected); Coronavirus HKU1 PCR Not Detected (NotDetected); Coronavirus OC43PCR Not Detected (NotDetected); Human Metapneumovirus PCR Not Detected (NotDetected); Influenza A PCR Not Detected (NotDetected); Influenza B PCR Not Detected (NotDetected); Mycoplasma pneumoniae PCR Not Detected (NotDetected); Parainfluenza Virus 1 PCR Not Detected (NotDetected); Parainfluenza Virus 2 PCR Not Detected (NotDetected); Parainfluenza Virus 3 PCR Not Detected (NotDetected); Parainfluenza Virus 4 PCR Not Detected (NotDetected); Respiratory Syncytial VirusPCR Not Detected (NotDetected); Rhinovirus/Enterovirus PCR Not Detected (NotDetected)
[2022-04-17 12:59] LABS: Coronavirus NL63 PCR DETECTED (NotDetected)
[2022-04-17] MEDS: MAGNESIUM SULFATE / D5W 1 GM/100 ML BAG IV SCH ×2 (13:04→14:12)
[2022-04-17] MEDS ORDERED: GLUCAGON FOR INJ 1 MG VIAL SQ PRN (14:49)
[2022-04-17] MEDS ORDERED: GLUCOSE 10 TAB/TUBE PO PRN (14:49)
[2022-04-17] MEDS ORDERED: CARBOHYDRATES FOR HYPOGLYCEMIA PO PRN (14:49)
[2022-04-17] MEDS ORDERED: NORMOSOL-R 1,000 ML IV SCH (14:49)
[2022-04-17] MEDS ORDERED: GLUCOSE 40% GEL 15 GM TUBE PO PRN (14:49)
[2022-04-17] MEDS ORDERED: DEXTROSE 50% 50 ML SYRINGE IV PRN (14:49)
[2022-04-17] MEDS ORDERED: ACETAMINOPHEN 325 MG TAB PO PRN (14:49)
--- NOTE | 2022-04-17 17:10 | Ultrasound Report ---
BILATERAL LOWER EXTREMITY VENOUS DOPPLER HISTORY: Acute pain and swelling of the lower legs ?DVT -> PE COMPARISON STUDY: None. FINDINGS: Limited exam secondary to patient body habitus and subcutaneous edema. Intermittent venous flow is noted within one of the duplicated left peroneal veins suggestive of a partially occlusive th rombus. Otherwise there is normal compressibility, flow, and augmentation within the bilateral lower extremity deep venous systems. IMPRESSION: 1. Questioned partially occlusive deep venous thrombus of the left lower leg. No acute occlusive deep venous thrombus identified. 2. Otherwise unremarkable exam. ACT 112: Negative or not required by law. Electronically signed by: Ponce Phan M.D. 04/17/2022 5:09 PM
[2022-04-17] MEDS: POTASSIUM CHLORIDE CRTAB 20 MEQ TABCR PO SCH ×2 (18:47→20:59)
[2022-04-17] MEDS: HEPARIN SOD 5,000 UNIT/0.5 ML VIAL SQ SCH ×2 (18:47→22:03)
[2022-04-17] MEDS: CITALOPRAM 20 MG TAB PO SCH (18:52)
[2022-04-17] MEDS ORDERED: Nursing to Pharmacy Communication SCH (19:15)
[2022-04-17] MEDS ORDERED: INSULIN ASPART PER UNIT SC ONE (19:30)
[2022-04-17] MEDS: INSULIN ASPART PER UNIT SC SCH ×3 (19:47→20:42)
[2022-04-18 00:27] LABS: Appearance Urine Clear (Clear); Bacteria Urine Automated Negative (Negative); Bilirubin Urine Negative (Negative); Blood Urine 1+ (Negative); Cast Urine Automated 0 /lpf (0-5); Color Urine Yellow; Glucose Urine UA Negative (Negative); Ketones Urine Negative (Negative); Leukocyte Esterase Urine Negative (Negative); Nitrite Urine Negative (Negative); Protein Urine Trace (Negative); RBC Urine Automated 0-4 /hpf (0-4); Specific Gravity Urine 1.009 (1.000-1.030); Urobilinogen Urine Negative (Negative); pH Urine 6.5 (4.5-7.5)
[2022-04-18 01:29] LABS: Calcium 9.3 mg/dl (8.5-10.1); Creatinine Clr Calc Pharmacy 63.7 ml/min; Est GFR (African American) 61.6 ml/min; Est GFR (Non-African American) 53.2 ml/min; Potassium 3.4 mmol/L (3.5-5.1)
[2022-04-18 01:39] LABS: Hematocrit (blood only) 38.4 % (37.0-47.0); Mean Corpuscular Hemoglobin 31.7 pg (25.0-34.0); Mean Corpuscular Hgb Conc 33.9 g/dL (32.0-36.0); Mean Corpuscular Volume 93.7 fL (80.0-100.0); Mean Platelet Volume 9.4 fL (9.4-12.4); Platelet Count 183 K/uL (130-400); RDW Coefficient of Variation 13.7 % (11.5-14.5); White Blood Count 16.97 K/ul (4.8-10.8)
[2022-04-18 02:05] LABS: Basophils # (auto) 0.05 K/uL (0-0.2); Basophils % (auto) 0.3 %; Immature Granulocytes # (auto) 0.19 K/uL (0.01-0.20); Immature Granulocytes % (auto) 1.1 %; Lymphocytes # (auto) 0.99 K/uL (1.2-3.4); Lymphocytes % (auto) 5.8 %; Monocytes # (auto) 0.21 K/uL (0.11-0.59); Monocytes % (auto) 1.2 %; Neutrophils # (auto) 15.53 K/uL (1.40-6.50); Neutrophils % (auto) 91.6 %; Toxic Granulation 1+; Toxic Vacuolation 1+
[2022-04-18 02:37] LABS: C Reactive Protein 35.22 mg/dl (0-0.5)
[2022-04-18 03:00] LABS: A calco-baum cmplx NotReported Not Detected (NotDetected); Bact fragilis Not Reported Not Detected (NotDetected); C auris Not Reported Not Detected (NotDetected); Calbicans Not Reported Not Detected (NotDetected); Candida glabrata Not Reported Not Detected (NotDetected); Candida krusei Not Reported Not Detected (NotDetected); Cneoformans/gatti Not Reported Not Detected (NotDetected); Cparapsilosis Not Reported Not Detected (NotDetected); Ctropicalis Not Reported Not Detected (NotDetected); E cloacae compx Not Reported Not Detected (NotDetected); Efaecalis Not Reported Not Detected (NotDetected); Efaecium Not Reported Not Detected (NotDetected); Enterobacterales Not Reported Not Detected (NotDetected); Escherichia coli Not Reported Not Detected (NotDetected); H influenzae Not Reported Not Detected (NotDetected); K aerogenes Not Reported Not Detected (NotDetected); Koxytoca Not Reported Not Detected (NotDetected); Kpneumoniae grp Not Reported Not Detected (NotDetected); Lmonocyt Not Reported Not Detected (NotDetected); N meningitidis Not Reported Not Detected (NotDetected); P aeruginosa Not Reported Not Detected (NotDetected); Proteus spp Not Reported Not Detected (NotDetected); Salmonella spp Not Reported Not Detected (NotDetected); Smarcescens Not Reported Not Detected (NotDetected); Staph lugdunensis Not Reported Not Detected (NotDetected); Staph spp. Not Reported DETECTED (NotDetected); Staphaureus Not Reported DETECTED (NotDetected); Staphepi Not Reported DETECTED (NotDetected); Staphylococcus spp. DETECTED (NotDetected); Stenmaltophilia Not Reported Not Detected (NotDetected); Strep agal(GrpB) Not Reported Not Detected (NotDetected); Strep pneum Not Reported Not Detected (NotDetected); Strep pyog (GrpA) Not Reported DETECTED (NotDetected); Strep spp Not Reported DETECTED (NotDetected); Streptococcus spp DETECTED (NotDetected); mecAC Resistant Gene DETECTED (NotDetected); mecAC+MREJ Resistant Gene MRSA Not Detected (NotDetected)
[2022-04-18] MEDS ORDERED: MELATONIN 3 MG TAB PO PRN (03:28)
[2022-04-18 03:44] LABS: Staphylococcus epidermidis DETECTED (NotDetected)
[2022-04-18 03:45] LABS: Streptococcus pyogenes (GrpA) DETECTED (NotDetected)
[2022-04-18] MEDS ORDERED: VANCOMYCIN CONSULT ACTIVE PRN ×2 (03:52→04:49)
[2022-04-18] MEDS ORDERED: VANCOMYCIN HCL 1,000 MG in SODIUM CHLORIDE 0.9% 250 ML IV SCH (04:00)
[2022-04-18] MEDS ORDERED: ALBUTEROL HFA 8 GM INHALER INH PRN (04:52)
[2022-04-18] MEDS ORDERED: VANCOMYCIN HCL 2,750 MG in SODIUM CHLORIDE 0.9% 500 ML IV ONE (05:00)
[2022-04-18] MEDS: HEPARIN SOD 5,000 UNIT/0.5 ML VIAL SQ SCH ×3 (05:38→22:02)
--- NOTE | 2022-04-18 08:06 | Hospitalist Progress Note ---
Date of Service April 18, 2022 Assessment & Plan (1) Cellulitis: Plan: Sepsis, suspect 2/2 cellulitis Acute serious risk Tachycardic, elevated lactate, elevated Pro-Abdoulaye Patient with states the rash began on her left arm in the antecubital and elbow area and spread over the rest of her body. This remains warm, erythematous, mildly tender. . Was marked with surgical pen the areas of demarcation appear similar CXR without evidence of pneumonia, patient is with acute hypoxia/elevated Pro- Abdoulaye/wheezing on admission. CTchest, suggests atelectasis Acute hypoxic respiratory failure, acute and serous risk biofire shows non Covid 19, coronavirus presence remains in airborne precautions at this time Improved with supplemental oxygen, DuoNeb Bacteremia, MRnonSA suggested by PCR testing, Acute serious risk, source skin. ? if skin can be toxic shock also concern for strep species is present will need blood cultures till clear, echo does not show valvular vegetations at this time - Last echo 09/2018: EF 55 to 60%, borderline concentric LVH, no significant change from study 3 months prior, normal LV systolic function, no regional wall motion abnormality Hypokalemia acute and self limited replete Potassium 3.0, magnesium 1.5 on admission Repletion ordered, trended History of breast cancer ductal carcinoma left, endometrial cancer, s/p hysterectomy Continue anastrozole Anxiety/depression chronic continue medical management Continue citalopram daily Patient has had several friends recently and endorses that she was feeling depressed and stopped taking medications prior to her symptom onset. Would benefit from outpatient follow-up of depression/anxiety, is on citalopram which can be continued but do not expect any up titration of this medication to produce benefit in an acute timeframe, can have adjustments and follow-up in 4-6-week intervals Chronic venous insufficiency, chronic poorly controlled Patient is at risk for DVT/PE, lower extremity Dopplers show question partially occlusive DVT of the left lower extremity (1 branch of her left peroneal vein this was felt to be present by compressibility changes) but no acute occlusive DVT identified patient is currently on heparin 7500 units Q8. Undergoing Doppler of her left upper extremity but comments of a partially occlusive distal peroneal DVT would be considered an isolated and distal DVT and may not be amenable to treatment at this time if the patient has a DVT of upper extremity will progress to full therapeutic anticoagulation however if not considering this a distal small DVT we will continue her subcutaneous heparin History of prediabetes acute and likely moderate risk the patient Without history of diabetes or antiglycemic treatment Admitting BSG 200 Weight-based SSI ordered, A1c pending ?Porcelain Gallbladder chronic undetermined risk the patient potential source of infection or arbitrary nidus of bacteremia infection - Noted on prior imaging - DVT prophylaxis: Heparin 2/2 DINESH Diet: DM CODE STATUS: DNR/DNI (2) Acute respiratory failure with hypoxia: (3) Chronic venous insufficiency: (4) Depression: (5) Hypokalemia: (6) Hypertension: (7) Hyperlipidemia: (8) Prediabetes: (9) Venous stasis dermatitis: (10) Breast cancer: Admission and Anticipated Discharge Date Admission Date: April 17, 2022 Subjective Patient feels improved. She still has erythema and swelling to her left arm. She feels her issues began in her left arm near her mid arm elbow and antecubital space. The patient does have an unroofed blister on the olecranon bursa area. She has blotchy erythema throughout the left arm. Although having a history of breast cancer she typically has not had lymphedema at that arm but her arm is significantly swollen at this time. Her torso likewise continues to have a blanchable diffuse confluent rash on it. Physical Exam Physical Exam: Examination does not reveal any peripheral stigmata of endocarditis such as splinter hemorrhages Osler's nodes or newfound cardiac murmur her transthoracic echocardiogram does not report any valvular vegetations Her left arm is significantly swollen compared to the right she however has good distal sensation and strength and capillary refill is also preserved as well as distal pulses There is an open area to the olecranon point what looks to be a blister that has ruptured. [place] of erythema and is not make this area more red or less red than any other part of her arm in that area erythema has not clinically consistent with cellulitis although definitely has inflammatory Results & Data Results & Data ([facility]) Vital Signs (Past 12 Hours) Vital Signs Temp Pulse Pulse Resp BP BP Pulse Ox 04/18/22 07:48 97.3 F L 72 18 109/67 90 04/18/22 07:16 72 04/18/22 06:08 71 18 91 04/18/22 02:33 97.3 F L 77 18 111/68 93 04/18/22 00:24 78 04/17/22 23:23 97.3 F L 75 20 112/67 93 04/17/22 21:55 97.2 F L 84 18 111/74 90 04/17/22 22:04 04/17/22 21:00 79 21 147/66 H 95 04/17/22 20:00 75 22 140/88 94 04/17/22 19:58 O2 Del Method O2 Flow Rate 04/18/22 07:48 Room Air 04/18/22 07:16 04/18/22 06:08 Room Air 04/18/22 02:33 Room Air 04/18/22 00:24 04/17/22 23:23 Room Air 04/17/22 21:55 Room Air 04/17/22 22:04 Room Air 04/17/22 21:00 Nasal Cannula 3 04/17/22 20:00 Nasal Cannula 3 04/17/22 19:58 Nasal Cannula 4 Laboratory Results Reviewed PRP Reviewed CRP elevated Reviewed troponin PG Care Time/CCT Total # of Minutes Spent Total Time Spent with Patient: Total time spent is greater than 50% in coordination of care (as documented) at patient's floor/unit and/or counseling patient: Coding Level of Care Code 49997 SUB INP/OBS CARE 50MIN Diagnoses Cellulitis L03.313 Site of cellulitis: trunk Site of cellulitis of trunk: chest wall Acute respiratory failure with hypoxia J96.01 Chronic venous insufficiency I87.2 Depression F32.9 Hypokalemia E87.6 Hypertension I10 Hyperlipidemia E78.5 Prediabetes R73.03 Venous stasis dermatitis I87.2 Breast cancer C50.919 (1) Cellulitis Site of cellulitis: trunk Site of cellulitis of trunk: chest wall Qualified Code(s): L03.313 - Cellulitis of chest wall
[2022-04-18] MEDS: CITALOPRAM 20 MG TAB PO SCH (08:41)
[2022-04-18] MEDS: MAGNESIUM OXIDE 400 MG TAB PO SCH ×2 (08:41→22:01)
[2022-04-18] MEDS: POTASSIUM CHLORIDE CRTAB 20 MEQ TABCR PO SCH (08:42)
[2022-04-18] MEDS: INSULIN ASPART PER UNIT SC SCH ×4 (08:42→22:00)
[2022-04-18] MEDS ORDERED: dexAMETHasone 6 MG in SYRINGE 0 ML IV SCH (09:00)
[2022-04-18] MEDS: ANASTROZOLE 1 MG TAB PO SCH (09:41)
[2022-04-18] MEDS: cefTRIAXone SODIUM 2,000 MG in DEXTROSE 5% 50 ML IV SCH (11:16)
--- NOTE | 2022-04-18 11:18 | Pharmacy Report ---
Pharmacy PK ABX Note - Date of Service April 18, 2022 - Assessment and Plan Assessment 81 year old F receiving Vancomycin and Ceftriaxone for treatment of sepsis secondary to possible cellulitis. * White count elevated at 17k. Lactic acid was 3.1. Procal was 1.21. * MRSA nasal swab negative. One set of blood cultures are positive from admission, other set shows no growth to date. Aerobic bottle is growing GPCs in clusters. Anaerobic bottle is growing GPCs in clusters and GPCs in chains. BCID2 panel identified these organisms as MSSA, MRSE and Strep pyogenes. Possible contamination. Plan Vancomycin * Loading dose: 2750 mg IV x 1 * Maintenance dose: 1250 mg IV every 24 hours * Regimen is predicted to achieve target AUC/SRINIVASAN of 400-600 mg/L.hr * Random level ordered for: 04/21/22 Pharmacy will continue to follow and will adjust dose/frequency as necessary. Thank you. Pharmacy has transitioned to AUC monitoring for vancomycin. AUC/SRINIVASAN is the preferred PK/PD target and is associated with decreased risk of nephrotoxicity compared to traditional trough targets.
[2022-04-19] MEDS: VANCOMYCIN HCL 1,250 MG in SODIUM CHLORIDE 0.9% 250 ML IV SCH ×2 (05:51→06:43)
[2022-04-19] MEDS: HEPARIN SOD 5,000 UNIT/0.5 ML VIAL SQ SCH ×3 (05:52→21:52)
--- NOTE | 2022-04-19 07:34 | Ultrasound Report ---
LEFT UPPER EXTREMITY VENOUS DOPPLER ULTRASOUND CLINICAL HISTORY: Left upper extremity swelling. Evaluate for DVT. COMPARISON STUDY: No previous studies for comparison. TECHNIQUE: Sonography of the deep venous system of the left upper extremity was performed. FINDINGS: The left internal jugular, subclavian, axillary, brachial, radial, ulnar, cephalic and basi lic veins were patent. No deep venous thrombus was identified within the left upper extremity. IMPRESSION: No deep venous thrombus within the left upper extremity. ACT 112: Negative or not required by law. Electronically signed by: Patrick Govea M.D. 04/19/2022 7:33 AM
[2022-04-19 07:54] LABS: Estimated Average Glucose 134 mg/dl; Hemoglobin A1C 6.3 % (4.5-5.6)
[2022-04-19] MEDS: CITALOPRAM 20 MG TAB PO SCH (08:46)
[2022-04-19] MEDS: ANASTROZOLE 1 MG TAB PO SCH (08:47)
[2022-04-19] MEDS: INSULIN ASPART PER UNIT SC SCH ×4 (08:54→20:34)
[2022-04-19 10:14] LABS: Hematocrit (blood only) 37.2 % (37.0-47.0); Hemoglobin 12.5 g/dl (12.0-16.0); Mean Corpuscular Hemoglobin 31.9 pg (25.0-34.0); Mean Corpuscular Hgb Conc 33.6 g/dL (32.0-36.0); Mean Corpuscular Volume 94.9 fL (80.0-100.0); Mean Platelet Volume 9.4 fL (9.4-12.4); Platelet Count 238 K/uL (130-400); RDW Coefficient of Variation 14.2 % (11.5-14.5); RDW Standard Deviation 49.2 fL (36.4-46.3); Red Blood Count 3.92 M/uL (4.20-5.40)
[2022-04-19] MEDS: cefTRIAXone SODIUM 2,000 MG in DEXTROSE 5% 50 ML IV SCH (11:29)
[2022-04-19 12:49] LABS: Calcium 9.2 mg/dl (8.5-10.1); Magnesium 2.4 mg/dl (1.7-2.4); Potassium 3.9 mmol/L (3.5-5.1)
[2022-04-19 12:55] LABS: Creatinine Clr Calc Pharmacy 59.1 ml/min; Est GFR (African American) 57.4 ml/min; Est GFR (Non-African American) 49.6 ml/min
--- NOTE | 2022-04-19 15:41 | Hospitalist Progress Note ---
Date of Service April 19, 2022 Assessment & Plan (1) Cellulitis: Plan: Sepsis, suspect 2/2 cellulitis Acute serious risk Tachycardic, elevated lactate, elevated Pro-Abdoulaye Patient with states the rash began on her left arm in the antecubital and elbow area and spread over the rest of her body. - Improved with antibiotic therapy CXR without evidence of pneumonia, patient is with acute hypoxia/elevated Pro- Abdoulaye/wheezing on admission. CTchest, suggests atelectasis Acute hypoxic respiratory failure, acute and serous riskresolving biofire shows non Covid 19, coronavirus presence remains in airborne precautions at this time Improved with supplemental oxygen, DuoNeb room air as of 04/19/2022 Bacteremia, MRnonSA suggested by PCR testing, Acute serious risk, source skin. will need blood cultures till clear, echo does not show valvular vegetations at this time - Last echo 09/2018: EF 55 to 60%, borderline concentric LVH, no significant change from study 3 months prior, normal LV systolic function, no regional wall motion abnormality Hypokalemia acute and self limited replete Chronic and stable history of breast cancer ductal carcinoma left, endometrial cancer, s/p hysterectomy Continue anastrozole Anxiety/depression chronic continue medical management this is chronic and stable as the patient stopped her medication prior to admission and depression worsened Continue citalopram daily Chronic venous insufficiency, chronic poorly controlled chronic and stable Patient is at risk for DVT/PE, lower extremity Dopplers show question partially occlusive DVT of the left lower extremity (1 branch of her left peroneal vein this was felt to be present by compressibility changes) but no acute occlusive DVT identified patient is currently on heparin 7500 units Q8. Undergoing Doppler of her left upper extremity but comments of a partially occlusive distal peroneal DVT would be considered an isolated and distal DVT and may not be amenable to treatment at this time if the patient has a DVT of upper extremity will progress to full therapeutic anticoagulation however if not considering this a distal small DVT we will continue her subcutaneous heparin History of prediabetes acute and likely moderate risk the patient Without history of diabetes or antiglycemic treatment Admitting BSG 200 Weight-based SSI ordered, A1c 6.3 ?Porcelain Gallbladder chronic undetermined risk the patient potential source of infection or arbitrary nidus of bacteremia infection - Noted on prior imaging - DVT prophylaxis: Heparin 2/2 DINESH Diet: DM CODE STATUS: DNR/DNI (2) Acute respiratory failure with hypoxia: (3) Chronic venous insufficiency: (4) Depression: (5) Hypokalemia: (6) Hypertension: (7) Hyperlipidemia: (8) Prediabetes: (9) Venous stasis dermatitis: (10) Breast cancer: Admission and Anticipated Discharge Date Admission Date: April 17, 2022 Subjective Patient feels improved. She has lessening erythema and swelling to her left arm. She feels her issues began in her left arm near her mid arm elbow and antecubital space. The patient does have an unroofed blister on the olecranon bursa area. Is weak and deconditioned depression is improving Physical Exam Physical Exam: Patient looks better less confused erythema is fading her edema still is present but lessened. Card exam is regular that murmurs clicks rubs or gallops Extremities are with mild patches of venous stasis dermatitis but not c ircumferential on lower extremities Results & Data Results & Data ([facility]) Vital Signs (Past 12 Hours) Vital Signs Temp Pulse Pulse Resp BP Pulse Ox O2 Del Method 04/19/22 12:49 96 H 04/19/22 11:21 97.3 F L 88 16 138/77 90 Room Air 04/19/22 10:00 Room Air 04/19/22 07:54 97.2 F L 79 20 133/72 90 Room Air 04/19/22 05:59 84 04/19/22 05:05 97.9 F 81 20 138/74 90 Room Air Laboratory Results Reviewed CBC Reviewed PRP PG Care Time/CCT Total # of Minutes Spent Total Time Spent with Patient: Total time spent is greater than 50% in coordination of care (as documented) at patient's floor/unit and/or counseling patient: Coding Level of Care Code 95736 SUB INP/OBS CARE 235MIN Diagnoses Cellulitis L03.313 Site of cellulitis: trunk Site of cellulitis of trunk: chest wall Acute respiratory failure with hypoxia J96.01 Chronic venous insufficiency I87.2 Depression F32.9 Hypokalemia E87.6 Hypertension I10 Hyperlipidemia E78.5 Prediabetes R73.03 Venous stasis dermatitis I87.2 Breast cancer C50.919 (1) Cellulitis Site of cellulitis: trunk Site of cellulitis of trunk: chest wall Qualified Code(s): L03.313 - Cellulitis of chest wall
[2022-04-20] MEDS: HEPARIN SOD 5,000 UNIT/0.5 ML VIAL SQ SCH ×3 (06:29→21:11)
[2022-04-20] MEDS: VANCOMYCIN HCL 1,250 MG in SODIUM CHLORIDE 0.9% 250 ML IV SCH (06:35)
[2022-04-20] MEDS: INSULIN ASPART PER UNIT SC SCH ×4 (09:11→20:55)
[2022-04-20] MEDS: CITALOPRAM 20 MG TAB PO SCH (09:12)
[2022-04-20] MEDS: ANASTROZOLE 1 MG TAB PO SCH (09:13)
[2022-04-20 09:27] LABS: Hematocrit (blood only) 37.5 % (37.0-47.0); Hemoglobin 12.4 g/dl (12.0-16.0); Mean Corpuscular Hemoglobin 31.3 pg (25.0-34.0); Mean Corpuscular Hgb Conc 33.1 g/dL (32.0-36.0); Mean Corpuscular Volume 94.7 fL (80.0-100.0); Mean Platelet Volume 10.3 fL (9.4-12.4); Platelet Count 217 K/uL (130-400); RDW Coefficient of Variation 14.2 % (11.5-14.5); RDW Standard Deviation 49.9 fL (36.4-46.3); Red Blood Count 3.96 M/uL (4.20-5.40)
[2022-04-20 10:34] LABS: Anion Gap 4 (3-11); BUN Creatinine Ratio 38.4 (10-20); Blood Urea Nitrogen 38 mg/dl (6-23); Calcium 8.9 mg/dl (8.5-10.1); Carbon Dioxide 32 mmol/L (21-32); Chloride 102 mmol/L (98-107); Creatinine Clr Calc Pharmacy 63.3 ml/min; Est GFR (African American) 62.4 ml/min; Est GFR (Non-African American) 53.8 ml/min; Glucose 141 mg/dl (70-99(Fasting)); Magnesium 2.2 mg/dl (1.7-2.4); Sodium 138 mmol/L (136-145)
[2022-04-20] MEDS: cefTRIAXone SODIUM 2,000 MG in DEXTROSE 5% 50 ML IV SCH (11:52)
--- NOTE | 2022-04-20 13:55 | Infectious Disease Consult ---
Date of Consultation April 20, 2022 Assessment & Plan (1) Cellulitis: #cellulitis -presence of extensive cellulitis on admission and leukocytosis- both dramatically improved with antibiotics, raises possibility that blood cultures on admission represent true bacteremia, although typically multiple skin gopi in 1 of 2 sets would argue contaminants. - pt reports frequent picking of skin which was likely portal of entry- exacerbated by chronic dermatitis which likely led to rapid spread of erythema and mixed picture on presentation. Pt advised not to pick skin and to apply moisturizer regularly to skin to avoid fissures. -04/17 TTE with very difficult images but no significant findings. -Patient is currently on ceftriaxone and vancomycin since 04/18. - 04/17 MRSA nasal screen negative. 04/17 blood culture with group A beta strep and gram-positive cocci in clusters in 1 of 2 sets. Blood culture PCR panel detected staph species, Staph aureus, and strep. - 04/19 blood cultures are pending. -pt is on SSRI with reported recent exacerbation depression- will avoid linezolid -only known hardware is L knee- no issues- pt advised to monitor Rec: Recommend IV antibiotics for treatment of likely true strep and staph aureus bacteremia. However, given skin source, if rapid clearance, 2 weeks likely adequate. Will change current antibiotics to daptomycin 700mg IV q24 (~8mg/kg based on AIW). Will check CK in am for baseline. If 04/19 Bcxs remain NG x 48 hours, recommend that pt complete 2 week duration of daptomycin dated from 04/19 (end date 05/03/22) with weekly CBC with diff/CMP/CK. Pt reports she lives with daughter who can assist with IV abx. If 04/19 Bcxs are positive, recommend DIMITRIOS. Please page with any questions. Annmarie Coelho M.D. [facility] Pager [phone] Consultation Information Consultation was provided via telemedicine using two-way real-time interactive telecommunication between the patient and the telemedicine provider. For the duration of the visit, the provider was performing the assessment from a different facility than the patient. This includesuse of bluetooth stethoscope forauscultationperformed by the telepresenter that the telemedicine provider can hear if described in the physical exam. Paving [employer] Maker contact information: Please call [facility] Call Center [phone]. (Phone Number For Physician Use Only) After establishing a telemedicine visit, patient was: Patient was verified with two unique identifiers, Patient/authorized rep acknowledged consent and understanding and Gave permission to continue telehealth session Time Spent with Patient: Initial => 40 min History of Present Illness Attending Physician: Donovan Koehler MD History of Present Illness ID consult requested for gram-positive bacteremia in this 81-year-old female, past medical history breast cancer, status post chemo completed 2018, on anastrozole, anxiety/depression, remote history of uterine cancer, hypertension, obesity, chronic venous stasis, chronic dermatitis, who presented to the ED on 04/17/2022 reporting generalized weakness and a rash that over the last several days had become much worse. That morning she could not get out of bed so she called 911. She was noted to have hypoxia with O2 saturation of 88%. She reported several days of nonproductive cough and mild wheezing. She was also noted to have a rash on her chest which had started on the left breast and spread over back and left arm which was warm erythematous and mildly tender. There is a photo in the EMR H&P and markings were drawn. She denied any new detergents, exposures or medications. She denied fevers, chills, or sweats but reported being chronically cold. She denied GI complaints. She reported feeling increased depression over the past week and stopping her medication and only getting out of bed to go the bathroom. She was noted to have unroofed blister on the olecranon bursa area. In the ED, temperature was 36.9, heart rate 120, respiratory rate 22, O2 saturation 93% on nasal cannula, blood pressure 159/132. Admission labs significant for WBC 18.08, 88.5% neutrophils, creatinine 1.29, glucose 200, lactate 3.1, negative COVID. UA with out pyuria. Portable chest x-ray showed cardiomegaly without acute process and mild right basilar atelectasis. CT chest without contrast was limited but showed right basilar opacity suggestive at atelectasis with pneumonia considered less likely and cholelithiasis with possible porcelain gallbladder. On Dopplers there was a questionable partially occlusive DVT of left lower leg and no DVT in the left upper extremity. Patient's RVP was positive for coronavirus- not COVID. Per notes, dexamethasone was added due to hypoxia. 04/17 TTE with very difficult images but no significant findings. Patient is currently on ceftriaxone and vancomycin since 04/18. 2 04/17 MRSA nasal screen negative. 04/17 blood culture with group A beta strep and gram-positive cocci in clusters in 1 of 2 sets. Blood culture PCR panel detected staph species, Staph aureus, and strep. 04/19 blood cultures are pending. On prior cultures in EMR, 12/28/2021 right leg wound culture with MSSA. She reportedly gets GI upset with erythromycin. Pt has been afebrile and is now on RA. WBC has dramatically improved to 7.3, creatinine remains stable at 1. Pt reports she feels markedly improved- no fever, chills, pain, abd pain or diarrhea. Reports leg ulcers completely healed. No open wounds other than on elbow where pt states issue started. She reports that she picks her skin and believes that was cause of her problem. She denies being on a statin. Recent vein ablation- no other recent procedures. Reports only hardware is L knee replacement- unsure about ankle. No issues with L knee. Allergies Allergy/AdvReac Type Severity Reaction Status Date / Time iodine Allergy Mild Rash Verified 02/18/22 19:49 erythromycin base AdvReac Unknown GI UPSET Verified 12/28/21 08:32 gabapentin AdvReac Unknown make sick Verified 12/28/21 08:32 - nausea Lozldyh-MFI-ZtD Reductase AdvReac DIZZY Verified 04/17/22 10:33 Inhibitor LIGHTHEADEDNESS Home Medications Medication Instructions Recorded Confirmed Type anastrozole 1 mg tablet 1 mg PO QAM 01/23/19 02/04/22 History potassium gluconate 595 mg (99 mg) 99 mg PO QID 10/17/19 02/04/22 History tablet,extended release calcium carbonate 600 mg calcium 600 mg PO DAILY 03/11/21 02/04/22 History (1,500 mg) tablet citalopram 10 mg tablet 10 mg PO QAM #90 tabs 07/14/21 02/04/22 Rx furosemide 20 mg tablet (Lasix) 20 mg PO DAILY #30 tabs 11/06/21 04/17/22 Rx multivitamin 1 tab PO DAILY 11/06/21 02/04/22 History zinc gluconate 30 mg tablet 30 mg PO DAILY 12/15/21 02/04/22 History Patient History Medical History Anxiety MILD Breast cancer S/P CHEMO COMPLETED 03/2018- left breast RECENTLY RELEASED FROM ONCOLOGIST/ANNUAL VISITS NOW Extreme obesity History of uterine cancer REMOTE HX, SX INTERVENTION/ ? HX FEW RADIATION TX'S, PT NOT SURE Hypertension Port-A-Cath in place Rash Chronic dermatitis under surveillance by PCP (improved with abx) Surgical History H/O mastectomy LEFT H/O oral surgery History of ankle surgery LEFT/NO HARDWARE History of bilateral tubal ligation History of bowel resection R/T BENIGN TUMOR History of colonoscopy History of left breast biopsy History of removal of Port-a-Cath (09/02/21) Removal of Access Port Right(Right) - Vic Wheat DO, FACS History of total abdominal hysterectomy and bilateral salpingo-oophorectomy History of total knee replacement LEFT Family History Sister Family history of cancer Daughter Hx of CABG Coronary heart disease Myocardial infarction Father COPD (chronic obstructive pulmonary disease) Grandfather (Maternal) Colorectal cancer Denies family history of Ovarian cancer Prostate cancer Breast cancer Social History Smoking Status: Never smoker Second Hand Exposure: No; Hx Alcohol Use: No Hx Substance Use: No Preferred Language: Spanish Communication Ability: Effective Visual Impairment: No Limitations Hearing Ability: Normal Second Cook And Baker Required: No Beliefs That Will Affect Care: None marital status: Single Current Living Situation: Family Current Living Situation Comment: daughter and granddaughter current occupational status: retired Feels Safe at Home: Yes Safety Concerns: Feels Safe At This Time Childhood Exposure to Second-Hand Smoke: No Dental Care, Regularly: No Physical Activity Frequency: 1-2 Times per Week Seatbelt Use: always Sunscreen Use: Yes Assistive Devices: Cane and Walker Assistive Devices Comment: glasses Physical Exam Physical Exam: PE: Gen: Awake, alert, NAD HEENT: anicteric, dry mm, no thrush Resp: no resp distress on RA Abd: Soft, NT/ND Extr: no c/c 2+chronic edema. Chronic venous stasis skin changes b/l. Multiple small scabs. No open wounds in LE noted. L knee with well healed sca r- no erythema or warmth. Skin: RUE IV ok. Over L chest and arm, there is dramatically improved erythema when compared to prior markings- erythema of back has resolved. There is still faint erythema mainly over L breast more c/w dermatitis with very dry fissured skin. L elbow with circular area of erythema. L wrist with scab. Results & Data ([facility]) Vital Signs (Past 12 Hours) Vital Signs Temp Pulse Resp BP Pulse Ox O2 Del Method 04/20/22 11:11 36.5 C 81 18 109/67 92 Room Air 04/20/22 07:17 36.2 C L 79 18 136/71 90 Room Air 04/20/22 02:56 36.4 C L 71 20 128/78 90 Room Air Laboratory Results 04/19/22 16:01 Aerobic Blood Culture - Pending Blood Anaerobic Blood Culture - Pending 04/19/22 15:53 Aerobic Blood Culture - Pending Blood Anaerobic Blood Culture - Pending 04/17/22 08:35 Aerobic Blood Culture - Preliminary Blood Gram positive cocci clusters Anaerobic Blood Culture - Preliminary Gram positive cocci clusters Group A Beta Strep 04/17/22 08:35 Aerobic Blood Culture - Preliminary Blood No growth in Aerobic bottle after 48 hours. Anaerobic Blood Culture - Preliminary No growth in Anaerobic bottle after 48 hours. 04/20/22 04/20/22 04/20/22 11:31 10:41 08:43 WBC RBC Hgb Hct MCV MCH MCHC RDW Std Deviation RDW Coeff of Rosalinda Plt Count MPV Sodium Potassium 4.5 Chloride Carbon Dioxide Anion Gap BUN Creatinine Est Cr Clr Drug Dosing Est GFR ( Amer) Est GFR (Non-Af Amer) BUN/Creatinine Ratio Glucose POC Glucose 106 H 136 H Calcium Magnesium 04/20/22 04/20/22 04/19/22 08:40 08:40 20:09 WBC 7.30 RBC 3.96 L Hgb 12.4 Hct 37.5 MCV 94.7 MCH 31.3 MCHC 33.1 RDW Std Deviation 49.9 H RDW Coeff of Rosalinda 14.2 Plt Count 217 MPV 10.3 Sodium 138 Potassium TNP Chloride 102 Carbon Dioxide 32 Anion Gap 4 BUN 38 H Creatinine 0.99 Est Cr Clr Drug Dosing 63.3 Est GFR ( Amer) 62.4 Est GFR (Non-Af Amer) 53.8 BUN/Creatinine Ratio 38.4 H Glucose 141 H POC Glucose 123 H Calcium 8.9 Magnesium 2.2 04/19/22 16:39 WBC RBC Hgb Hct MCV MCH MCHC RDW Std Deviation RDW Coeff of Rosalinda Plt Count MPV Sodium Potassium Chloride Carbon Dioxide Anion Gap BUN Creatinine Est Cr Clr Drug Dosing Est GFR ( Amer) Est GFR (Non-Af Amer) BUN/Creatinine Ratio Glucose POC Glucose 124 H Calcium Magnesium Diagnostic Findings Extremity Venous Study 04/18/22 14:16 LEFT UPPER EXTREMITY VENOUS DOPPLER ULTRASOUND CLINICAL HISTORY: Left upper extremity swelling. Evaluate for DVT. COMPARISON STUDY: No previous studies for comparison. TECHNIQUE: Sonography of the deep venous system of the left upper extremity was performed. FINDINGS: The left internal jugular, subclavian, axillary, brachial, radial, ulnar, cephalic and basilic veins were patent. No deep venous thrombus was identified within the left upper extremity. IMPRESSION: No deep venous thrombus within the left upper extremity. ACT 112: Negative or not required by law. Electronically signed by: Patrick Govea M.D. 04/19/2022 7:33 AM Medications Administered Current Medications Acetaminophen (Acetaminophen 325 Mg Tab) 650 mg PO Q4H PRN PRN Reason: Pain or Fever Stop: 05/17/22 14:48 Albuterol (Albuterol Hfa 8 Gm Inhaler) 2 puffs INH Q6H PRN PRN Reason: wheeze Stop: 05/18/22 04:51 Last Admin: 04/18/22 06:05 Dose: 2 puffs Anastrozole (Anastrozole 1 Mg Tab) 1 mg PO QAM [facility] Stop: 05/18/22 08:59 Last Admin: 04/20/22 09:13 Dose: 1 mg Citalopram Hydrobromide (Citalopram 20 Mg Tab) 10 mg PO QAM SURINDER Stop: 05/17/22 14:59 Last Admin: 04/20/22 09:12 Dose: 10 mg Dextrose (Dextrose 50% 50 Ml Syringe) 25 - 50 ml IV UD PRN; Protocol PRN Reason: Hypoglycemia Protocol Stop: 05/17/22 14:48 Glucagon (Glucagon For Inj 1 Mg Vial) 1 mg SQ UD PRN; Protocol PRN Reason: Hypoglycemia Protocol Stop: 05/17/22 14:48 Glucose (Glucose 10 Tab/Tube) 4 - 8 tab PO UD PRN; Protocol PRN Reason: Hypoglycemia Treatment Stop: 05/17/22 14:48 Glucose (Glucose 40% Gel 15 Gm Tube) 15 - 30 gm PO UD PRN; Protocol PRN Reason: Hypoglycemia Protocol Stop: 05/17/22 14:48 Heparin Sodium (Porcine) (Heparin Sod 5,000 Unit/0.5 Ml Vial) 7,500 units SQ Q8 SURINDER Stop: 05/17/22 14:48 Last Admin: 04/20/22 13:20 Dose: 7,500 units Ceftriaxone Sodium 2,000 mg/ (Dextrose) 70 mls @ 100 mls/hr IV Q24H SURINDER; Protocol Stop: 04/25/22 10:59 Last Infusion: 04/20/22 13:18 Dose: Infused Vancomycin HCl 1,250 mg/ (Sodium Chloride) 275 mls @ 200 mls/hr IV Q24H SURINDER Stop: 05/03/22 05:59 Last Infusion: 04/20/22 08:50 Dose: Infused Insulin Aspart (Insulin Aspart Per Unit) 0 units SC ACHS SURINDER Stop: 05/17/22 14:48 Last Admin: 04/20/22 12:26 Dose: 1 units Miscellaneous (Carbohydrates For Hypoglycemia ) 15 - 30 gm PO UD PRN PRN Reason: Hypoglycemia Protocol Stop: 05/17/22 14:48 Miscellaneous Information (Vancomycin Consult Active) 1 each N/A UD PRN PRN Reason: Consult Stop: 05/18/22 04:48 (1) Cellulitis Site of cellulitis: trunk Site of cellulitis of trunk: chest wall Qualified Code(s): L03.313 - Cellulitis of chest wall
--- NOTE | 2022-04-20 14:40 | Hospitalist Progress Note ---
Date of Service April 20, 2022 Assessment & Plan (1) Cellulitis: Plan: Sepsis, suspect 2/2 cellulitis Acute serious risk Tachycardic, elevated lactate, elevated Pro-Abdoulaye Patient with states the rash began on her left arm in the antecubital and elbow area and spread over the rest of her body. - Improved with antibiotic therapy CXR without evidence of pneumonia, patient is with acute hypoxia/elevated Pro- Abdoulaye/wheezing on admission. CTchest, suggests atelectasis Transthoracic echocardiogram shows normal LV size and function EF preserved no evidence of pericardial effusion or valvular vegetations Acute hypoxic respiratory failure, acute and serous riskresolving biofire shows non Covid 19, coronavirus presence remains in airborne precautions at this time Improved with supplemental oxygen, DuoNeb room air as of 04/19/2022 Bacteremia appreciate infectious disease consultation consider bacteria discovered in blood cultures as a true source not contaminant without significant peripheral stigmata will complete 2 weeks course of antibiotics cur rently switching to daptomycin. Patient has a ultrasound-guided catheter and we will time to 2 weeks if blood cultures obtained on the continues to be negative meaning last dose will be May 03 Hypokalemia acute and self limited replete Chronic and stable history of breast cancer ductal carcinoma left, endometrial cancer, s/p hysterectomy Continue anastrozole Anxiety/depression chronic continue medical management this is chronic and stable as the patient stopped her medication prior to admission and depression worsened Continue citalopram daily Chronic venous insufficiency, chronic poorly controlled chronic and stable Patient is at risk for DVT/PE, lower extremity Dopplers show question partially occlusive DVT of the left lower extremity (1 branch of her left peroneal vein this was felt to be present by compressibility changes) but no acute occlusive DVT identified patient is currently on heparin 7500 units Q8. Undergoing Doppler of her left upper extremity but comments of a partially occlusive distal peroneal DVT would be considered an isolated and distal DVT and may not be amenable to treatment at this time if the patient has a DVT of upper extremity will progress to full therapeutic anticoagulation however if not considering this a distal small DVT we will continue her subcutaneous heparin History of prediabetes acute and likely moderate risk the patient Without history of diabetes or antiglycemic treatment Admitting BSG 200 Weight-based SSI ordered, A1c 6.3 ?Porcelain Gallbladder chronic undetermined risk the patient potential source of infection or arbitrary nidus of bacteremia infection - Noted on prior imaging - DVT prophylaxis: Heparin 2/2 DINESH Diet: DM CODE STATUS: DNR/DNI (2) Acute respiratory failure with hypoxia: (3) Chronic venous insufficiency: (4) Depression: (5) Hypokalemia: (6) Hypertension: (7) Hyperlipidemia: (8) Prediabetes: (9) Venous stasis dermatitis: (10) Breast cancer: Admission and Anticipated Discharge Date Admission Date: April 17, 2022 Subjective Patient feels improved. She has lessening erythema and swelling to her left arm. She feels her issues began in her left arm near her mid arm elbow and antecubital space. The patient does have an unroofed blister on the olecranon bursa area. Is weak and deconditioned depression is improving Physical Exam Physical Exam: Patient looks better less confused erythema is fading her edema still is present but lessened. Card exam is regular that murmurs clicks rubs or gallops Extremities are with mild patches of venous stasis dermatitis but not circumferential on lower extremities Results & Data Results & Data ([facility]) Vital Signs (Past 12 Hours) Vital Signs Temp Pulse Pulse Resp BP Pulse Ox O2 Del Method 04/20/22 08:00 75 04/20/22 11:11 97.7 F 81 18 109/67 92 Room Air 04/20/22 07:17 97.2 F L 79 18 136/71 90 Room Air 04/20/22 02:56 97.5 F L 71 20 128/78 90 Room Air PG Care Time/CCT Total # of Minutes Spent Total Time Spent with Patient: Total time spent is greater than 50% in coordination of care (as documented) at patient's floor/unit and/or counseling patient: Coding Level of Care Code 46061 SUB INP/OBS CARE 235MIN Diagnoses Cellulitis L03.313 Site of cellulitis: trunk Site of cellulitis of trunk: chest wall Acute respiratory failure with hypoxia J96.01 Chronic venous insufficiency I87.2 Depression F32.9 Hypokalemia E87.6 Hypertension I10 Hyperlipidemia E78.5 Prediabetes R73.03 Venous stasis dermatitis I87.2 Breast cancer C50.919 (1) Cellulitis Site of cellulitis: trunk Site of cellulitis of trunk: chest wall Qualified Code(s): L03.313 - Cellulitis of chest wall
[2022-04-20] MEDS: DAPTOmycin 700 MG in SYRINGE 0 ML IV SCH (15:54)
--- NOTE | 2022-04-20 22:27 | Communication Note ---
Date of Service: April 20, 2022 9:56 patient complained that the rash on her left elbow has increased redness and swelling. Patient here for cellulitis treated with Daptomycin, the rash on her chest remains improved. Patient denies any loss of sensation strength, pain or itching in region, erythema limited to her left elbow improved with ice. Physical exam sensation strength radial pulses intact in LUE. Will order CBC blood culture, mupirocin cream for now.
[2022-04-20] MEDS: MUPIROCIN 2% OINT 22 GM TUBE EXT SCH (22:59)
[2022-04-20 23:46] LABS: Hematocrit (blood only) 37.4 % (37.0-47.0); Hemoglobin 12.4 g/dl (12.0-16.0); Mean Corpuscular Hemoglobin 31.8 pg (25.0-34.0); Mean Corpuscular Hgb Conc 33.2 g/dL (32.0-36.0); Mean Corpuscular Volume 95.9 fL (80.0-100.0); Mean Platelet Volume 9.3 fL (9.4-12.4); Platelet Count 248 K/uL (130-400); RDW Coefficient of Variation 14.3 % (11.5-14.5); RDW Standard Deviation 50.7 fL (36.4-46.3); White Blood Count 8.32 K/ul (4.8-10.8)
[2022-04-21] MEDS ORDERED: VANCOMYCIN LEVEL ONE (05:30)
[2022-04-21] MEDS: HEPARIN SOD 5,000 UNIT/0.5 ML VIAL SQ SCH ×3 (05:49→22:13)
[2022-04-21 07:09] LABS: Hematocrit (blood only) 36.7 % (37.0-47.0); Mean Corpuscular Hemoglobin 31.4 pg (25.0-34.0); Mean Corpuscular Hgb Conc 32.7 g/dL (32.0-36.0); Mean Corpuscular Volume 96.1 fL (80.0-100.0); Platelet Count 240 K/uL (130-400); RDW Coefficient of Variation 14.3 % (11.5-14.5); RDW Standard Deviation 50.8 fL (36.4-46.3); Red Blood Count 3.82 M/uL (4.20-5.40); White Blood Count 7.68 K/ul (4.8-10.8)
[2022-04-21 07:32] LABS: BUN Creatinine Ratio 39.5 (10-20); Creatinine Clr Calc Pharmacy 71.5 ml/min; Est GFR (African American) 73.9 ml/min; Est GFR (Non-African American) 63.8 ml/min; Magnesium 1.9 mg/dl (1.7-2.4); Potassium 4.1 mmol/L (3.5-5.1)
[2022-04-21] MEDS: INSULIN ASPART PER UNIT SC SCH ×4 (08:58→21:17)
[2022-04-21] MEDS: MUPIROCIN 2% OINT 22 GM TUBE EXT SCH ×3 (08:58→21:17)
[2022-04-21] MEDS: CITALOPRAM 20 MG TAB PO SCH (08:59)
[2022-04-21] MEDS: ANASTROZOLE 1 MG TAB PO SCH (09:00)
--- NOTE | 2022-04-21 11:29 | Infectious Disease Progress Nt ---
Date of Service April 21, 2022 Assessment & Plan (1) Cellulitis: Plan: #cellulitis -presence of extensive cellulitis on admission and leukocytosis- both dramatically improved with antibiotics, raises possibility that blood cultures on admission represent true bacteremia, although typically multiple skin gopi in 1 of 2 sets would argue contaminants. - pt reports frequent picking of skin which was likely portal of entry- exacerbated by chronic dermatitis which likely led to rapid spread of erythema and mixed picture on presentation. Pt advised not to pick skin and to apply moisturizer regularly to skin to avoid fissures. -04/17 TTE with very difficult images but no significant findings. -Patient was on ceftriaxone and vancomycin since 04/18. Changed to dapto 04/20 - 04/17 MRSA nasal screen negative. 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 Blood culture PCR panel detected staph species, Staph aureus, and strep. - 04/19 blood cultures NGTD, 04/20 Bcxs pending -pt is on SSRI with reported recent exacerbation depression- will avoid linezolid -only known hardware is L knee- no issues- pt advised to monitor -baseline CPK 04/21/22 47 Rec: Recommend IV antibiotics for treatment of likely true strep and staph aureus bacteremia. However, given skin source, if rapid clearance, 2 weeks likely adequate. Continue daptomycin 700mg IV q24 (~8mg/kg based on AIW). If 04/19 Bcxs and 04/20 Bcxs remain negative recommend that pt complete 2 week duration of daptomycin dated from 04/19 (end date 05/03/22) with weekly CBC with diff/CMP/CK. Pt reports she lives with daughter who can assist with IV abx. Elbow more erythematous today, with tender protuberant area soft to palpation, whereas rest of cellulitis continues to improve- recommend u/s to assess for possible collection that requires I&D for resolution. Discussed with primary physician. Please page with any questions. Annmarie Coelho M.D. [facility] [employer] Pager [phone] Admission and Anticipated Discharge Date Admission Date: April 17, 2022 Subjective Subsequent visit was provided via telemedicine using two-way real-time interactive telecommunication between the patient and the telemedicine provider. For the duration of the visit, the provider was performing the assessment from a different facility than the patient. This includesuse of bluetooth stethoscope forauscultationperformed by the telepresenter that the telemedicine provider can hear if described in the physical exam. [employer] contact information: Please call [facility] Call Center [phone]. (Phone Number For Physician Use Only) After establishing a telemedicine visit, patient was: Patient was verified with two unique identifiers, Patient/authorized rep acknowledged consent and understanding and Gave permission to continue telehealth session Time Spent with Patient: Subsequent => 25 min Pt noted increased pain, swelling and redness of L elbow overnight. She denies any fever, chills, abd pain or diarrhea and reports she otherwise feels well. Repeat Bcxs NGTD Physical Exam Physical Exam: PE: Gen: Awake, a lert, NAD HEENT: a nicteric Resp: no resp distress on R A Abd: Soft, NT/ND Extr: no c/c 2+c hronic edema. Chr onic venous stasis skin changes b/l. Multiple small s cabs. No open wou nds in LE noted. L knee with well healed scar- no er ythema or warmth. Skin: RUE IV ok. Over L chest and arm, there is alexandra matically improved erythema when com pared to prior apr- erythema of back has resolved . There is still faint erythema idalia nly over L breast more c/w dermatiti s with very dry fi ssured skin. L el bow with circular area of erythema t hat appears more e rythematous than y esterday- there is a focal area on e lbow that protudes slightly and is t albert and soft to touch. L wrist wi th scab. Results & Data ([facility]) Vital Signs (Past 12 Hours) Vital Signs Temp Pulse Pulse Resp BP Pulse Ox O2 Del Method 04/21/22 07:54 36.5 C 81 18 117/66 90 Room Air 04/21/22 07:06 94 H 04/21/22 04:13 36.5 C 79 18 132/68 91 Room Air Laboratory Results 04/17/22 08:35 Aerobic Blood Culture - Preliminary Blood Coag neg staph not lugdunensis Anaerobic Blood Culture - Preliminary Staphylococcus species Group A Beta Strep Coag neg staph not lugdunensis 04/19/22 16:01 Aerobic Blood Culture - Preliminary Blood No growth in Aerobic bottle after 24 hours. Anaerobic Blood Culture - Final 04/20/22 23:08 Aerobic Blood Culture - Pending Blood Anaerobic Blood Culture - Pending 04/20/22 23:08 Aerobic Blood Culture - Pending Blood Anaerobic Blood Culture - Pending 04/19/22 15:53 Aerobic Blood Culture - Preliminary Blood No growth in Aerobic bottle after 24 hours. Anaerobic Blood Culture - Preliminary No growth in Anaerobic bottle after 24 hours. 04/21/22 04/21/22 04/21/22 07:51 06:39 06:39 WBC 7.68 RBC 3.82 L Hgb 12.0 Hct 36.7 L MCV 96.1 MCH 31.4 MCHC 32.7 RDW Std Deviation 50.8 H RDW Coeff of Rosalinda 14.3 Plt Count 240 MPV 9.0 L Sodium 139 Potassium 4.1 Chloride 103 Carbon Dioxide 31 Anion Gap 5 BUN 34 H Creatinine 0.86 Est Cr Clr Drug Dosing 71.5 Est GFR ( Amer) 73.9 Est GFR (Non-Af Amer) 63.8 BUN/Creatinine Ratio 39.5 H Glucose 116 H POC Glucose 100 H Calcium 9.0 Magnesium 1.9 Total Creatine Kinase 47 04/20/22 04/20/22 04/20/22 23:08 20:48 16:38 WBC 8.32 RBC 3.90 L Hgb 12.4 Hct 37.4 MCV 95.9 MCH 31.8 MCHC 33.2 RDW Std Deviation 50.7 H RDW Coeff of Rosalinda 14.3 Plt Count 248 MPV 9.3 L Sodium Potassium Chloride Carbon Dioxide Anion Gap BUN Creatinine Est Cr Clr Drug Dosing Est GFR ( Amer) Est GFR (Non-Af Amer) BUN/Creatinine Ratio Glucose POC Glucose 105 H 116 H Calcium Magnesium Total Creatine Kinase 04/20/22 04/20/22 11:31 10:41 WBC RBC Hgb Hct MCV MCH MCHC RDW Std Deviation RDW Coeff of Rosalinda Plt Count MPV Sodium Potassium 4.5 Chloride Carbon Dioxide Anion Gap BUN Creatinine Est Cr Clr Drug Dosing Est GFR ( Amer) Est GFR (Non-Af Amer) BUN/Creatinine Ratio Glucose POC Glucose 106 H Calcium Magnesium Total Creatine Kinase Medications Administered Current Medications Acetaminophen (Acetaminophen 325 Mg Tab) 650 mg PO Q4H PRN PRN Reason: Pain or Fever Stop: 05/17/22 14:48 Albuterol (Albuterol Hfa 8 Gm Inhaler) 2 puffs INH Q6H PRN PRN Reason: wheeze Stop: 05/18/22 04:51 Last Admin: 04/18/22 06:05 Dose: 2 puffs Anastrozole (Anastrozole 1 Mg Tab) 1 mg PO QAM [facility] Stop: 05/18/22 08:59 Last Admin: 04/21/22 09:00 Dose: 1 mg Citalopram Hydrobromide (Citalopram 20 Mg Tab) 10 mg PO QAM [facility] Stop: 05/17/22 14:59 Last Admin: 04/21/22 08:59 Dose: 10 mg Dextrose (Dextrose 50% 50 Ml Syringe) 25 - 50 ml IV UD PRN; Protocol PRN Reason: Hypoglycemia Protocol Stop: 05/17/22 14:48 Glucagon (Glucagon For Inj 1 Mg Vial) 1 mg SQ UD PRN; Protocol PRN Reason: Hypoglycemia Protocol Stop: 05/17/22 14:48 Glucose (Glucose 10 Tab/Tube) 4 - 8 tab PO UD PRN; Protocol PRN Reason: Hypoglycemia Treatment Stop: 05/17/22 14:48 Glucose (Glucose 40% Gel 15 Gm Tube) 15 - 30 gm PO UD PRN; Protocol PRN Reason: Hypoglycemia Protocol Stop: 05/17/22 14:48 Heparin Sodium (Porcine) (Heparin Sod 5,000 Unit/0.5 Ml Vial) 7,500 units SQ Q8 [facility] Stop: 05/17/22 14:48 Last Admin: 04/21/22 05:49 Dose: 7,500 units Daptomycin 700 mg/ Syringe 14 mls @ 7 mls/min IV Q24H SURINDER; Protocol Stop: 05/04/22 14:29 Last Admin: 04/20/22 15:54 Dose: 7 mls/min Insulin Aspart (Insulin Aspart Per Unit) 0 units SC ACHS [facility] Stop: 05/17/22 14:48 Last Admin: 04/21/22 08:58 Dose: 1 units Miscellaneous (Carbohydrates For Hypoglycemia ) 15 - 30 gm PO UD PRN PRN Reason: Hypoglycemia Protocol Stop: 05/17/22 14:48 Mupirocin (Mupirocin 2% Oint 22 Gm Tube) 1 appln EXT TID SUR[facility] Stop: 05/20/22 22:09 Last Admin: 04/21/22 08:58 Dose: 1 appln (1) Cellulitis Site of cellulitis: trunk Site of cellulitis of trunk: chest wall Qualified Code(s): L03.313 - Cellulitis of chest wall
--- NOTE | 2022-04-21 15:05 | Orthopedic Consultation ---
Date of Consultation April 21, 2022 Assessment & Plan (1) Septic olecranon bursitis: Likely septic olecranon bursitis left elbow. Patient would benefit from an irrigation and debridement of the left septic olecranon bursitis. I will discussed the case with [facility] physicians. If in agreement, the patient will likely have an I&D of this area in the next day or so. Heparin will need to be held for at least 6 hours prior to procedure. I will discuss the case further with Dr. Koehler in preparation for possible procedure. Addendum: Dr. Jean agreeable to do I&D of left elbow tomorrow after 5pm. Discussed with Dr. Koehler. Supervising Physician Co-Signing Physician Notes Patient seen and examined. Agree with NIC Sosa's note as above. Patient's exam is consistent with a left elbow septic olecranon bursitis. I would recommend irrigation and debridement. She is agreeable. Risks, benefits, and alternatives of surgery were explained in detail. The surgical procedure, as well as postoperative recovery and rehabilitation, was also explained in detail. Risks include bleeding; persistent infection; damage to surrounding structures such as nerves, blood vessels, and tendons that run in the area; persistent pain, weakness, or stiffness; or need for further surgery. The patient understands all of this and wishes to proceed with surgery. Informed consent was obtained. History of Present Illness Reason for Consultation: Left septic olecranon bursitis Attending Physician: Donovan Koehler MD History of Present Illness Patient is an 81-year-old female who was admitted several days ago for cellulitis of the left upper extremity. The patient states that her cellulitis was much worse when she came in. She states that extended up her extremity to her shoulder and onto her chest. It also extended down the arm. There are areas of marking on the extremity where her erythema was but it had gotten better. In speaking to Dr. Lombardi who is taking care of her, the patient was slowly getting progressively better. A consult was placed for infectious disease who reviewed the patient chart and interviewed the patient. They ended up changing the antibiotics to daptomycin which were then continued. Since that time, the patient's erythema has continued to progressively worsen around the elbow itself. Initially she did not have much in the way of a fluid collection around the olecranon bursa however Dr. Lombardi then later stated that after reexamination, it was noted that she felt that she did have a fluid collection. CT scan was ordered of the left elbow which is now pending. We have been asked to see her for her left elbow cellulitis/septic olecranon bursa bursitis. Currently the patient is sitting in her chair at the bedside. She appears comfortable. She has no other history to add to the current HPI. Allergies Allergy/AdvReac Type Severity Reaction Status Date / Time iodine Allergy Mild Rash Verified 02/18/22 19:49 erythromycin base AdvReac Unknown GI UPSET Verified 12/28/21 08:32 gabapentin AdvReac Unknown make sick Verified 12/28/21 08:32 - nausea Ycxbmag-WVC-QrM Reductase AdvReac DIZZY Verified 04/17/22 10:33 Inhibitor LIGHTHEADEDNESS Home Medications Medication Instructions Recorded Confirmed Type anastrozole 1 mg tablet 1 mg PO QAM 01/23/19 02/04/22 History potassium gluconate 595 mg (99 mg) 99 mg PO QID 10/17/19 02/04/22 History tablet,extended release calcium carbonate 600 mg calcium 600 mg PO DAILY 03/11/21 02/04/22 History (1,500 mg) tablet citalopram 10 mg tablet 10 mg PO QAM #90 tabs 07/14/21 02/04/22 Rx furosemide 20 mg tablet (Lasix) 20 mg PO DAILY #30 tabs 11/06/21 04/17/22 Rx multivitamin 1 tab PO DAILY 11/06/21 02/04/22 History zinc gluconate 30 mg tablet 30 mg PO DAILY 12/15/21 02/04/22 History Patient History Medical History Anxiety MILD Breast cancer S/P CHEMO COMPLETED 03/2018- left breast RECENTLY RELEASED FROM ONCOLOGIST/ANNUAL VISITS NOW Extreme obesity History of uterine cancer REMOTE HX, SX INTERVENTION/ ? HX FEW RADIATION TX'S, PT NOT SURE Hypertension Port-A-Cath in place Rash Chronic dermatitis under surveillance by PCP (improved with abx) Surgical History H/O mastectomy LEFT H/O oral surgery History of ankle surgery LEFT/NO HARDWARE History of bilateral tubal ligation History of bowel resection R/T BENIGN TUMOR History of colonoscopy History of left breast biopsy History of removal of Port-a-Cath (09/02/21) Removal of Access Port Right(Right) - Vic Wheat DO, MARTIN History of total abdominal hysterectomy and bilateral salpingo-oophorectomy History of total knee replacement LEFT Family History Sister Family history of cancer Daughter Hx of CABG Coronary heart disease Myocardial infarction Father COPD (chronic obstructive pulmonary disease) Grandfather (Maternal) Colorectal cancer Denies family history of Ovarian cancer Prostate cancer Breast cancer Social History Smoking Status: Never smoker Second Hand Exposure: No; Hx Alcohol Use: No Hx Substance Use: No Preferred Language: Ukrainian Communication Ability: Effective Visual Impairment: No Limitations Hearing Ability: Normal [employer] Required: No Beliefs That Will Affect Care: None marital status: Single Current Living Situation: Family Current Living Situation Comment: daughter and granddaughter current occupational status: retired Feels Safe at Home: Yes Safety Concerns: Feels Safe At This Time Childhood Exposure to Second-Hand Smoke: No Dental Care, Regularly: No Physical Activity Frequency: 1-2 Times per Week Seatbelt Use: always Sunscreen Use: Yes Assistive Devices: Cane and Walker Assistive Devices Comment: glasses Physical Exam Physical Exam: On examination, the patient is an 81-year-old obese white female. She is alert and oriented. No acute distress. Pleasant and cooperative. On examination of her left upper extremity, she has a beefy red area over her left elbow. There is areas of marked marking where nursing had marked where the initial erythema had been which had gotten better. This has now receded down to an area around the elbow that is just distal to the elbow and proximal as well. Most of the area on palpation that is erythematous around the elbow is nontender. She does have a boggy swelling area over the olecranon bursa itself. There might be a small amount of fluid in there as well. She is tender on palpation when palpating this area. She is able to take her elbow through gentle range of motion but does have some discomfort. There is no obvious areas of purulence and there is no open wounds. No drainage noted. Results & Data ([facility]) Vital Signs (Past 12 Hours) Vital Signs Temp Pulse Pulse Resp BP Pulse Ox O2 Del Method 04/21/22 11:49 36.5 C 83 18 138/78 94 Room Air 04/21/22 07:54 36.5 C 81 18 117/66 90 Room Air 04/21/22 07:06 94 H 04/21/22 04:13 36.5 C 79 18 132/68 91 Room Air Laboratory Results Laboratory Results WBC 7.68 K/ul (4.8-10.8) 04/21/22 06:39 RBC 3.82 M/uL (4.20-5.40) L 04/21/22 06:39 Hgb 12.0 g/dl (12.0-16.0) 04/21/22 06:39 Hct 36.7 % (37.0-47.0) L 04/21/22 06:39 MCV 96.1 fL (80.0-100.0) 04/21/22 06:39 MCH 31.4 pg (25.0-34.0) 04/21/22 06:39 MCHC 32.7 g/dL (32.0-36.0) 04/21/22 06:39 RDW Std Deviation 50.8 fL (36.4-46.3) H 04/21/22 06:39 RDW Coeff of Rosalinda 14.3 % (11.5-14.5) 04/21/22 06:39 Plt Count 240 K/uL (130-400) 04/21/22 06:39 MPV 9.0 fL (9.4-12.4) L 04/21/22 06:39 Immature Gran % (Auto) 1.1 % 04/18/22 00:47 Neut % (Auto) 91.6 % 04/18/22 00:47 Lymph % (Auto) 5.8 % 04/18/22 00:47 [place] % (Auto) 1.2 % 04/18/22 00:47 Eos % (Auto) 0.0 % 04/18/22 00:47 Baso % (Auto) 0.3 % 04/18/22 00:47 Neut # (Auto) 15.53 K/uL (1.40-6.50) H 04/18/22 00:47 Lymph # (Auto) 0.99 K/uL (1.2-3.4) L 04/18/22 00:47 [place] # (Auto) 0.21 K/uL (0.11-0.59) 04/18/22 00:47 Eos # (Auto) 0.00 K/uL (0-0.50) 04/18/22 00:47 Baso # (Auto) 0.05 K/uL (0-0.2) 04/18/22 00:47 Immature Gran # (Auto) 0.19 K/uL (0.01-0.20) 04/18/22 00:47 Toxic Granulation 1+ 04/18/22 00:47 Toxic Vacuolation 1+ 04/18/22 00:47 Polychromasia 1+ 04/17/22 08:18 PT 11.3 Seconds (9.0-12.0) 04/17/22 08:18 INR 1.1 (0.9-1.1) 04/17/22 08:18 APTT 29.6 Seconds (21.0-31.0) 04/17/22 08:18 PTT Ratio 1.1 04/17/22 08:18 VBG pH 7.47 (7.36-7.41) H 04/17/22 08:35 VBG pCO2 38 mmHg (38-50) 04/17/22 08:35 VBG pO2 53 mmHg 04/17/22 08:35 VBG HCO3 28 mmol/L 04/17/22 08:35 VBG O2 Saturation 89.7 % 04/17/22 08:35 VBG Base Excess 3.9 mEq/L 04/17/22 08:35 Sodium 139 mmol/L (136-145) 04/21/22 06:39 Potassium 4.1 mmol/L (3.5-5.1) 04/21/22 06:39 Chloride 103 mmol/L (98-107) 04/21/22 06:39 Carbon Dioxide 31 mmol/L (21-32) 04/21/22 06:39 Anion Gap 5 (3-11) 04/21/22 06:39 BUN 34 mg/dl (6-23) H 04/21/22 06:39 Creatinine 0.86 mg/dl (0.6-1.2) 04/21/22 06:39 Est Cr Clr Drug Dosing 71.5 ml/min 04/21/22 06:39 Est GFR ( Amer) 73.9 ml/min 04/21/22 06:39 Est GFR (Non-Af Amer) 63.8 ml/min 04/21/22 06:39 BUN/Creatinine Ratio 39.5 (10-20) H 04/21/22 06:39 Glucose 116 mg/dl (70-99(Fasting)) H 04/21/22 06:39 POC Glucose 129 mg/dl (70-99) H 04/21/22 11:36 Estimat Average Glucose 134 mg/dl 04/18/22 00:47 Hemoglobin A1c 6.3 % (4.5-5.6) H 04/18/22 00:47 Lactate 1.6 mmol/L (0.4-2.0) 04/17/22 10:36 Calcium 9.0 mg/dl (8.5-10.1) 04/21/22 06:39 Magnesium 1.9 mg/dl (1.7-2.4) 04/21/22 06:39 Total Bilirubin 0.9 mg/dl (0.2-1.0) 04/17/22 08:18 Direct Bilirubin 0.3 mg/dl (0-0.2) H 04/17/22 08:18 AST 59 U/L (13-39) H 04/17/22 08:18 ALT 39 U/L (7-52) 04/17/22 08:18 Alkaline Phosphatase 195 U/L (34-104) H 04/17/22 08:18 Total Creatine Kinase 47 U/L (26-192) 04/21/22 06:39 Troponin I High Sens 19.4 pg/ml (0-14) H 04/18/22 07:09 C-Reactive Protein 35.22 mg/dl (0-0.5) H 04/18/22 00:47 B-Natriuretic Peptide 80 pg/ml (0-100) 04/17/22 09:51 Total Protein 7.0 gm/dl (6.0-8.3) 04/17/22 08:18 Albumin 2.9 gm/dl (3.4-5.0) L 04/17/22 08:18 Procalcitonin 1.21 ng/ml (0-0.5) H 04/17/22 08:18 Urine Color Yellow 04/18/22 00:00 Urine Appearance Clear (Clear) 04/18/22 00:00 Urine pH 6.5 (4.5-7.5) 04/18/22 00:00 Ur Specific [place] 1.009 (1.000-1.030) 04/18/22 00:00 Urine Protein Trace (Negative) H 04/18/22 00:00 Urine Glucose (UA) Negative (Negative) 04/18/22 00:00 Urine Ketones Negative (Negative) 04/18/22 00:00 Urine Blood 1+ (Negative) H 04/18/22 00:00 Urine Nitrite Negative (Negative) 04/18/22 00:00 Urine Bilirubin Negative (Negative) 04/18/22 00:00 Urine Urobilinogen Negative (Negative) 04/18/22 00:00 Ur Leukocyte Esterase Negative (Negative) 04/18/22 00:00 Urine WBC (Auto) 1-5 /hpf (0-5) 04/18/22 00:00 Urine RBC (Auto) 0-4 /hpf (0-4) 04/18/22 00:00 U Hyaline Cast (Auto) 0 /lpf (0-5) 04/18/22 00:00 U Epithel Cells (Auto) 10-20 /lpf (0-5) H 04/18/22 00:00 Urine Bacteria (Auto) Negative (Negative) 04/18/22 00:00 Nasal Screen MRSA (PCR) Negative (Negative) 04/17/22 11:32 Adenovirus (PCR) Not Detected (NotDetected) 04/17/22 11:41 B. pertussis DNA (PCR) Not Detected (NotDetected) 04/17/22 11:41 B.parapertussis DNA PCR Not Detected (NotDetected) 04/17/22 11:41 C. pneumoniae DNA (PCR) Not Detected (NotDetected) 04/17/22 11:41 Coronavirus OC43 (PCR) Not Detected (NotDetected) 04/17/22 11:41 Coronavirus HKU1 (PCR) Not Detected (NotDetected) 04/17/22 11:41 Coronavirus 229E (PCR) Not Detected (NotDetected) 04/17/22 11:41 SARS-CoV-2 (PCR) Not Detected (NotDetected) 04/17/22 11:41 Coronavirus NL63 (PCR) DETECTED (NotDetected) A* 04/17/22 11:41 Human Metapneumovir PCR Not Detected (NotDetected) 04/17/22 11:41 Influenza Type A (PCR) Not Detected (NotDetected) 04/17/22 11:41 Influenza Type B (PCR) Not Detected (NotDetected) 04/17/22 11:41 M. pneumoniae (PCR) Not Detected (NotDetected) 04/17/22 11:41 Parainfluenza 1 (PCR) Not Detected (NotDetected) 04/17/22 11:41 Parainfluenza 2 (PCR) Not Detected (NotDetected) 04/17/22 11:41 Parainfluenza 3 (PCR) Not Detected (NotDetected) 04/17/22 11:41 Parainfluenza 4 (PCR) Not Detected (NotDetected) 04/17/22 11:41 RSV (PCR) Not Detected (NotDetected) 04/17/22 11:41 Entero/Rhino (PCR) Not Detected (NotDetected) 04/17/22 11:41 SARS-CoV-2, RNA, NAAT NEGATIVE (NEGATIVE) 04/17/22 08:35 Staphylococcus sp PCR DETECTED (NotDetected) A 04/17/22 08:35 Staph aureus (PCR) DETECTED (NotDetected) A 04/17/22 08:35 mecA/C & MREJ Resist Gene MRSA Not Detected (NotDetected) 04/17/22 08:35 mecA/C-Methicil Resis Gene DETECTED (NotDetected) A 04/17/22 08:35 Staph epidermidis (PCR) DETECTED (NotDetected) A 04/17/22 08:35 Streptococcus sp PCR DETECTED (NotDetected) A 04/17/22 08:35 S. pyogenes (PCR) DETECTED (NotDetected) A 04/17/22 08:35 Bld Cult ID Panel PCR See PCR Comment (NotDetected) 04/17/22 08:35 Venous Doppler Study 04/17/22 10:57 BILATERAL LOWER EXTREMITY VENOUS DOPPLER HISTORY: Acute pain and swelling of the lower legs ?DVT -> PE COMPARISON STUDY: None. FINDINGS: Limited exam secondary to patient body habitus and subcutaneous edema. Intermittent venous flow is noted within one of the duplicated left peroneal veins suggestive of a partially occlusive thrombus. Otherwise there is normal compressibility, flow, and augmentation within the bilateral lower extremity deep venous systems. IMPRESSION: 1. Questioned partially occlusive deep venous thrombus of the left lower leg. No acute occlusive deep venous thrombus identified. 2. Otherwise unremarkable exam. ACT 112: Negative or not required by law. Electronically signed by: Ponce Phan M.D. 04/17/2022 5:09 PM Extremity Venous Study 04/18/22 14:16 LEFT UPPER EXTREMITY VENOUS DOPPLER ULTRASOUND CLINICAL HISTORY: Left upper extremity swelling. Evaluate for DVT. COMPARISON STUDY: No previous studies for comparison. TECHNIQUE: Sonography of the deep venous system of the left upper extremity was performed. FINDINGS: The left internal jugular, subclavian, axillary, brachial, radial, ulnar, cephalic and basilic veins were patent. No deep venous thrombus was identified within the left upper extremity. IMPRESSION: No deep venous thrombus within the left upper extremity. ACT 112: Negative or not required by law. Electronically signed by: Patrick Govea M.D. 04/19/2022 7:33 AM
--- NOTE | 2022-04-21 15:34 | CT Scan Report ---
LEFT ELBOW CT WITHOUT CONTRAST CLINICAL HISTORY: Left elbow pain. Evaluate for fluid collection or tenosynovitis. COMPARISON STUDY: Left upper extremity venous Doppler ultrasound April 18, 2022. FINDINGS: Alignment of the left elbow is anatomic. There is no acute fracture. No radiopaque foreign bodies are noted. No definite evidence for a joint effusion. Note is made of posterior left lower arm , elbow and forearm skin thickening and subcutaneous stranding suggestive of cellulitis. There is no soft tissue gas. Ill-defined pocket of fluid overlying the olecranon measures approximately 4.8 x 4.1 x 2.3 cm. This may reflect olecranon bursitis. No additional fluid collections are present. Musculat ure is grossly unremarkable. No osseous lesions are present. IMPRESSION: 1. Posterior left lower arm, elbow and proximal forearm skin thickening and subcutaneous stranding hardy ggestive of cellulitis. 2. Ill-defined pocket of fluid overlying the olecranon bursa measuring approximately 4.8 x 4.1 x 2.3 cm. This is nonspecific but may reflect olecranon bursitis. Sterility cannot be assessed by CT. 3. No acute fractures. No evidence for acute osteomyelitis. No definite joint effusion. ACT 112: Negative or not required by law. Electronically signed by: Patrick Govea M.D. 04/21/2022 3:32 PM
[2022-04-21] MEDS: DAPTOmycin 700 MG in SYRINGE 0 ML IV SCH (15:54)
--- NOTE | 2022-04-21 16:43 | Hospitalist Progress Note ---
Date of Service April 21, 2022 Assessment & Plan (1) Cellulitis: Plan: Sepsis, suspect 2/ cellulitis and now olecranon bursitis Acute serious risk Tachycardic, elevated lactate, elevated Pro-Abdoulaye Patient with states the rash began on her left arm in the antecubital and elbow area and spread over the rest of her body. -Initially improved with antibiotic therapy, worsened on 04/21. Fluid collection felt and confirmed by CT imaging, orthopedic consulted with expectation of incision and drainage on 04/22/2022 Transthoracic echocardiogram shows normal LV size and function EF preserved no evidence of pericardial effusion or valvular vegetations repeat blood cultures are negative to date Bacteremia appreciate infectious disease consultation consider bacteria discovered in blood cultures as a true source now source is confirmed by olecranon bursitis declaring itself and requiring I&D. Will complete 2 weeks course of antibiotics currently switching to daptomycin. Patient has a ultrasound-guided catheter and we will time to 2 weeks if blood cultures obtained on the continues to be negative meaning last dose will be May 03 Acute hypoxic respiratory failure, acute and serous riskresolved biofire shows non Covid 19, coronavirus presence remains in airborne precautions at this time Improved with supplemental oxygen, DuoNeb room air as of 04/19/2022 Hypokalemia acute and self limited replete Chronic and stable history of breast cancer ductal carcinoma left, endometrial cancer, s/p hysterectomy Continue anastrozole Anxiety/depression chronic continue medical management this is chronic and stable as the patient stopped her medication prior to admission and depression worsened Continue citalopram daily Chronic venous insufficiency, chronic poorly controlled chronic and stable Patient is at risk for DVT/PE, lower extremity Dopplers show question partially occlusive DVT of the left lower extremity (1 branch of her left peroneal vein this was felt to be present by compressibility changes) but no acute occlusive DVT identified patient is currently on heparin 7500 units Q8. Undergoing Doppler of her left upper extremity but comments of a partially occlusive distal peroneal DVT would be considered an isolated and distal DVT and may not be amenable to treatment at this time if the patient has a DVT of upper extremity will progress to full therapeutic anticoagulation however if not considering this a distal small DVT we will continue her subcutaneous heparin History of prediabetes acute and likely moderate risk the patient Without history of diabetes or antiglycemic treatment Admitting BSG 200 Weight-based SSI ordered, A1c 6.3 ?Porcelain Gallbladder chronic undetermined risk the patient potential source of infection or arbitrary nidus of bacteremia infection - Noted on prior imaging - DVT prevention is heparin as mentioned above CODE STATUS: DNR/DNI Attempted to call daughter in the evening of 04/21 there was no answer (2) Acute respiratory failure with hypoxia: (3) Chronic venous insufficiency: (4) Depression: (5) Hypokalemia: (6) Hypertension: (7) Hyperlipidemia: (8) Prediabetes: (9) Venous stasis dermatitis: (10) Breast cancer: Admission and Anticipated Discharge Date Admission Date: April 17, 2022 Subjective Pt noted increased pain, swelling and redness of L elbow overnight. She denies any fever, chills, abd pain or diarrhea and reports she otherwise feels well. Patient have any focus tenderness to the anterior antecubital pain with movement but the point or olecranon area of her elbow is extremely tender. There is some fluctuance felt. Repeat Bcxs NGTD I did personally communicate this with orthopedics including a discussion of imaging. I also shared imaging with infectious disease. With evidence of fluid collection the patient will likely require incision and drainage Physical Exam Physical Exam: Patient is some increased redness to her left elbow there is now fluctuant area which would likely require I&D patient otherwise has no chest pain or pressure her systemic rash is receding and she has no shortness of breath Results & Data Results & Data ([facility]) Vital Signs (Past 12 Hours) Vital Signs Temp Pulse Pulse Resp BP Pulse Ox O2 Del Method 04/21/22 15:33 97.7 F 83 18 123/61 92 Room Air 04/21/22 11:49 97.7 F 83 18 138/78 94 Room Air 04/21/22 07:54 97.7 F 81 18 117/66 90 Room Air 04/21/22 07:06 94 H PG Care Time/CCT Total # of Minutes Spent Total Time Spent with Patient: Total time spent is greater than 50% in coordination of care (as documented) at patient's floor/unit and/or counseling patient: Coding Level of Care Code 67016 SUB INP/OBS CARE 3/50MIN Diagnoses Cellulitis L03.313 Site of cellulitis: trunk Site of cellulitis of trunk: chest wall Acute respiratory failure with hypoxia J96.01 Chronic venous insufficiency I87.2 Depression F32.9 Hypokalemia E87.6 Hypertension I10 Hyperlipidemia E78.5 Prediabetes R73.03 Venous stasis dermatitis I87.2 Breast cancer C50.919 (1) Cellulitis Site of cellulitis: trunk Site of cellulitis of trunk: chest wall Qualified Code(s): L03.313 - Cellulitis of chest wall
--- NOTE | 2022-04-21 16:45 | Communication Note ---
Date of Service: April 21, 2022 Eye surgery is planned for later today on April 22 her anticoagulation DVT prevention heparin will be discontinued and held after evening dose on the
[2022-04-22] MEDS: HEPARIN SOD 5,000 UNIT/0.5 ML VIAL SQ SCH ×2 (05:41→22:39)
[2022-04-22 06:34] LABS: Hematocrit (blood only) 38.7 % (37.0-47.0); Hemoglobin 12.7 g/dl (12.0-16.0); Mean Corpuscular Hemoglobin 31.6 pg (25.0-34.0); Mean Corpuscular Hgb Conc 32.8 g/dL (32.0-36.0); Mean Corpuscular Volume 96.3 fL (80.0-100.0); Mean Platelet Volume 9.2 fL (9.4-12.4); Platelet Count 270 K/uL (130-400); RDW Coefficient of Variation 14.3 % (11.5-14.5); RDW Standard Deviation 50.5 fL (36.4-46.3); Red Blood Count 4.02 M/uL (4.20-5.40); White Blood Count 7.28 K/ul (4.8-10.8)
[2022-04-22 06:37] LABS: BUN Creatinine Ratio 33.3 (10-20); Creatinine Clr Calc Pharmacy 68.4 ml/min; Est GFR (Non-African American) 60.4 ml/min; Potassium 4.5 mmol/L (3.5-5.1)
[2022-04-22] MEDS: INSULIN ASPART PER UNIT SC SCH ×4 (08:12→21:12)
--- NOTE | 2022-04-22 09:02 | Anesthesiology Consultation ---
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 Height/Weight Height: 5 ft 7 in Weight: 124.9 kg Allergies Allergy/AdvReac Type Severity Reaction Status Date / Time iodine Allergy Mild Rash Verified 02/18/22 19:49 erythromycin base AdvReac Unknown GI UPSET Verified 12/28/21 08:32 gabapentin AdvReac Unknown make sick Verified 12/28/21 08:32 - nausea [id number] Reductase AdvReac DIZZY Verified 04/17/22 10:33 Inhibitor LIGHTHEADEDNESS Medications Home Medications Medication Instructions Recorded Confirmed Last Taken anastrozole 1 mg tablet 1 mg PO QAM 01/23/19 02/04/22 09/01/21 08:00 potassium gluconate 595 mg (99 mg) 99 mg PO QID 10/17/19 02/04/22 09/01/21 08:00 tablet,extended release calcium carbonate 600 mg calcium 600 mg PO DAILY 03/11/21 02/04/22 09/01/21 08:00 (1,500 mg) tablet citalopram 10 mg tablet 10 mg PO QAM #90 tabs 07/14/21 02/04/22 09/01/21 08:00 furosemide 20 mg tablet (Lasix) 20 mg PO DAILY #30 tabs 11/06/21 04/17/22 Unknown multivitamin 1 tab PO DAILY 11/06/21 02/04/22 Unknown zinc gluconate 30 mg tablet 30 mg PO DAILY 12/15/21 02/04/22 Unknown Active Medications Generic Name Dose Route Start Last Admin Trade Name Freq PRN Reason Stop Dose Admin Albuterol 2 puffs 04/18/22 04:52 04/18/22 06:05 Albuterol Hfa 8 Gm Inhaler INH 05/18/22 04:51 2 puffs Q6H PRN Administration wheeze Anastrozole 1 mg 04/18/22 09:00 04/21/22 09:00 Anastrozole 1 Mg Tab PO 05/18/22 08:59 1 mg QAM SURINDER Administration Citalopram Hydrobromide 10 mg 04/17/22 15:00 04/21/22 08:59 Citalopram 20 Mg Tab PO 05/17/22 14:59 10 mg QAM SURINDER Administration Heparin Sodium (Porcine) 7,500 units 04/17/22 14:49 04/22/22 05:41 Heparin Sod 5,000 Unit/0.5 Ml Vial SQ 05/17/22 14:48 Not Given Q8 SURINDER Daptomycin 700 mg/ Syringe 14 mls @ 7 mls/min 04/20/22 16:00 04/21/22 15:54 IV 05/04/22 14:29 7 mls/min Q24H SURINDER Administration Protocol Insulin Aspart 0 units 04/17/22 14:49 04/22/22 08:12 Insulin Aspart Per Unit SC 05/17/22 14:48 Not Given ACHS SURINDER Mupirocin 1 appln 04/20/22 22:10 04/21/22 21:17 Mupirocin 2% Oint 22 Gm Tube EXT 05/20/22 22:09 1 appln TID SURINDER Administration Past Medical History Medical History Anxiety MILD Breast cancer S/P CHEMO COMPLETED 03/2018- left breast RECENTLY RELEASED FROM ONCOLOGIST/ANNUAL VISITS NOW Extreme obesity History of uterine cancer REMOTE HX, SX INTERVENTION/ ? HX FEW RADIATION TX'S, PT NOT SURE Hypertension Port-A-Cath in place Rash Chronic dermatitis under surveillance by PCP (improved with abx) Past Family History Family History Sister Family history of cancer Daughter Hx of CABG Coronary heart disease Myocardial infarction Father COPD (chronic obstructive pulmonary disease) Grandfather (Maternal) Colorectal cancer Denies family history of Ovarian cancer Prostate cancer Breast cancer Past Surgical History Surgical History H/O mastectomy LEFT H/O oral surgery History of ankle surgery LEFT/NO HARDWARE History of bilateral tubal ligation History of bowel resection R/T BENIGN TUMOR History of colonoscopy History of left breast biopsy History of removal of Port-a-Cath (09/02/21) Removal of Access Port Right(Right) - Vic Wheat DO, FACS History of total abdominal hysterectomy and bilateral salpingo-oophorectomy History of total knee replacement LEFT Social History Smoking Status: Never smoker tobacco type: cigarettes Hx Alcohol Use: No Hx Substance Use: No substance use type: does not use Physical Exam Vital Signs Last Vital Signs Temp 97.5 F L 04/22/22 07:44 Pulse 81 04/22/22 07:44 Resp 16 04/22/22 07:44 BP 151/77 H 04/22/22 07:44 Pulse Ox 92 04/22/22 07:44 O2 Del Method Room Air 04/22/22 07:44 O2 Flow Rate 3 04/17/22 21:00 Testing Laboratory Results 04/22/22 05:35 04/22/22 05:35 PT 11.3 Seconds (9.0-12.0) 04/17/22 08:18 INR 1.1 (0.9-1.1) 04/17/22 08:18 APTT 29.6 Seconds (21.0-31.0) 04/17/22 08:18 Hemoglobin A1c 6.3 % (4.5-5.6) H 04/18/22 00:47 Urine Color Yellow 04/18/22 00:00 Urine Appearance Clear (Clear) 04/18/22 00:00 Urine pH 6.5 (4.5-7.5) 04/18/22 00:00 Ur Specific [place] 1.009 (1.000-1.030) 04/18/22 00:00 Urine Protein Trace (Negative) H 04/18/22 00:00 Urine Glucose (UA) Negative (Negative) 04/18/22 00:00 Urine Ketones Negative (Negative) 04/18/22 00:00 Urine Nitrite Negative (Negative) 04/18/22 00:00 Ur Leukocyte Esterase Negative (Negative) 04/18/22 00:00 Urine WBC (Auto) 1-5 /hpf (0-5) 04/18/22 00:00 Urine RBC (Auto) 0-4 /hpf (0-4) 04/18/22 00:00 U Hyaline Cast (Auto) 0 /lpf (0-5) 04/18/22 00:00 U Epithel Cells (Auto) 10-20 /lpf (0-5) H 04/18/22 00:00 Urine Bacteria (Auto) Negative (Negative) 04/18/22 00:00 04/17/22 08:35 Aerobic Blood Culture - Final Blood Coag neg staph not lugdunensis Anaerobic Blood Culture - Final Staphylococcus aureus Group A Beta Strep Coag neg staph not lugdunensis 04/20/22 23:08 Aerobic Blood Culture - Preliminary Blood No growth in Aerobic bottle after 24 hours. Anaerobic Blood Culture - Preliminary No growth in Anaerobic bottle after 24 hours. 04/20/22 23:08 Aerobic Blood Culture - Preliminary Blood No growth in Aerobic bottle after 24 hours. Anaerobic Blood Culture - Preliminary No growth in Anaerobic bottle after 24 hours. 04/19/22 16:01 Aerobic Blood Culture - Preliminary Blood No growth in Aerobic bottle after 48 hours. Anaerobic Blood Culture - Final 04/19/22 15:53 Aerobic Blood Culture - Preliminary Blood No growth in Aerobic bottle after 48 hours. Anaerobic Blood Culture - Preliminary No growth in Anaerobic bottle after 48 hours. 04/17/22 08:35 Aerobic Blood Culture - Preliminary Blood No growth in Aerobic bottle after 48 hours. Anaerobic Blood Culture - Preliminary No growth in Anaerobic bottle after 48 hours. 04/22/22 07:52 POC Glucose 103 H Electrocardiogram Date: 04/17/22 Sinus tachycardia with Premature atrial complexes and PVC's, rate [address] abnormality Abnormal ECG When compared with ECG of 24-AUG-2021 09:52, Vent. rate has increased BY 41 BPM PVC's are new Confirmed by Juwan Wise ([id number]) on 04/17/2022 11:43:35 AM Chest X-Ray Date: 04/17/22 IMPRESSION: 1. Cardiomegaly without acute process. 2. Unchanged right hemidiaphragmatic elevation with mild right basilar atelectasis. Echocardiogram Date: 04/17/22 LV is normal in size LV wall motion is normal LV systolic function is normal EF 60-65% Mild concentric LVH RV is normal in size and function There is no pericardial effusion Grade 1 diastolic dysfunction
--- NOTE | 2022-04-22 10:29 | Hospitalist Progress Note ---
Date of Service April 22, 2022 Assessment & Plan (1) Cellulitis: Plan: Sepsis, suspect 04/01 cellulitis and now olecranon bursitis Acute serious risk Tachycardic, elevated lactate, elevated Pro-Abdoulaye Patient with states the rash began on her left arm in the antecubital and elbow area and spread over the rest of her body. -Initially improved with antibiotic therapy, worsened on 04/21. Fluid collection felt and confirmed by CT imaging, orthopedic consulted with expectation of incision and drainage on 04/22/2022 Transthoracic echocardiogram shows normal LV size and function EF preserved no evidence of pericardial effusion or valvular vegetations repeat blood cultures are negative to date Bacteremia appreciate infectious disease consultation consider bacteria discovered in blood cultures as a true source now source is confirmed by olecranon bursitis declaring itself and requiring I&D. Will complete 2 weeks course of antibiotics currently switching to daptomycin. Patient has a ultrasound-guided catheter and we will time to 2 weeks if blood cultures obtained on the continues to be negative meaning last dose will be May 03 Patient is having orthopedic procedure on 04/22 to incise and drain olecranon bursa. will recommend culture should be obtained of this fluid Acute hypoxic respiratory failure, acute and serous riskresolved biofire shows non Covid 19, coronavirus presence remains in airborne precautions at this time Improved with supplemental oxygen, DuoNeb room air as of 04/19/2022 Hypokalemia acute and self limited replete Chronic and stable history of breast cancer ductal carcinoma left, endometrial cancer, s/p hysterectomy Continue anastrozole Anxiety/depression chronic continue medical management this is chronic and stable as the patient stopped her medication prior to admission and depression worsened Continue citalopram daily Chronic venous insufficiency, chronic poorly controlled chronic and stable Patient is at risk for DVT/PE, lower extremity Dopplers show question pa rtially occlusive DVT of the left lower extremity (1 branch of her left peroneal vein this was felt to be present by compressibility changes) but no acute occlusive DVT identified patient is currently on heparin 7500 units Q8. Undergoing Doppler of her left upper extremity but comments of a partially occlusive distal peroneal DVT would be considered an isolated and distal DVT and may not be amenable to treatment at this time if the patient has a DVT of upper extremity will progress to full therapeutic anticoagulation however if not considering this a distal small DVT we will continue her subcutaneous heparin History of prediabetes acute and likely moderate risk the patient Without history of diabetes or antiglycemic treatment Admitting BSG 200 Weight-based SSI ordered, A1c 6.3 ?Porcelain Gallbladder chronic undetermined risk the patient potential source of infection or arbitrary nidus of bacteremia infection - Noted on prior imaging - DVT prevention is heparin as mentioned above CODE STATUS: DNR/DNI (2) Acute respiratory failure with hypoxia: (3) Chronic venous insufficiency: (4) Depression: (5) Hypokalemia: (6) Hypertension: (7) Hyperlipidemia: (8) Prediabetes: (9) Venous stasis dermatitis: (10) Breast cancer: Admission and Anticipated Discharge Date Admission Date: April 17, 2022 Subjective Patient reports no new symptoms. She continues to have pain in her left elbow. She is awaiting surgery. Review of Systems Review of Systems: All systems reviewed & are unremarkable except as noted in HPI & below Physical Exam Constitutional: WD/WN, vitals as above Eyes: PERRL, conjunctivae normal, anicteric sclerae ENMT: external ear and nose normal, oropharynx normal Neck: trachea midline, no thyromegaly Respiratory: normal respiratory effort, lungs clear to auscultation Cardiovascular: RRR, no murmur, no edema Gastrointestinal (Abdomen): normal bowel sounds, soft, nontender, no hepatosplenomegaly Musculoskeletal: erythema noted on left elbow. Skin: chronic venous changes noted on lower extremity Psychiatric: A+Ox3, euthymic affect Lymphatic: no cervical or axillary lymphadenopathy Results & Data Results & Data ([facility]) Vital Signs (Past 12 Hours) Vital Signs Temp Pulse Pulse Resp BP Pulse Ox O2 Del Method 04/22/22 07:45 Room Air 04/22/22 07:44 36.4 C L 81 16 151/77 H 92 Room Air 04/22/22 05:58 70 04/22/22 03:26 36.9 C 83 16 140/77 92 Room Air 04/22/22 00:28 76 04/21/22 23:27 36.6 C 80 16 143/71 H 94 Room Air PG Care Time/CCT Total # of Minutes Spent Total Time Spent with Patient: Total time spent is greater than 50% in coordination of care (as documented) at patient's floor/unit and/or counseling patient: Coding Level of Care Code 39574 SUB INP/OBS CARE 3/50MIN Diagnoses Cellulitis L03.313 Site of cellulitis: trunk Site of cellulitis of trunk: chest wall Acute respiratory failure with hypoxia J96.01 Chronic venous insufficiency I87.2 Depression F32.9 Hypokalemia E87.6 Hypertension I10 Hyperlipidemia E78.5 Prediabetes R73.03 Venous stasis dermatitis I87.2 Breast cancer C50.919 (1) Cellulitis Site of cellulitis: trunk Site of cellulitis of trunk: chest wall Qualified Code(s): L03.313 - Cellulitis of chest wall
[2022-04-22] MEDS: MUPIROCIN 2% OINT 22 GM TUBE EXT SCH ×3 (11:28→21:12)
[2022-04-22] MEDS: ANASTROZOLE 1 MG TAB PO SCH (12:22)
[2022-04-22] MEDS: CITALOPRAM 20 MG TAB PO SCH (12:22)
--- NOTE | 2022-04-22 15:52 | Infectious Disease Progress Nt ---
Date of Service April 22, 2022 Assessment & Plan (1) Cellulitis: Plan: #cellulitis -presence of extensive cellulitis on admission and leukocytosis- both dramatically improved with antibiotics, raises possibility that blood cultures on admission represent true bacteremia, although typically multiple skin gopi in 1 of 2 sets would argue contaminants. - pt reports frequent picking of skin which was likely portal of entry- exacerbated by chronic dermatitis which likely led to rapid spread of erythema and mixed picture on presentation. Pt advised not to pick skin and to apply moisturizer regularly to skin to avoid fissures. -04/17 TTE with very difficult images but no significant findings. -Patient was on ceftriaxone and vancomycin since 04/18. Changed to dapto 04/20 - 04/17 MRSA nasal screen negative. 04/17 blood culture with group A beta strep, LAUNDRY TECH, not lugdenensis and SA in 1 of 2 sets. Blood culture PCR panel detected staph species, Staph aureus, and strep. - 04/19 blood cultures NGTD, 04/20 Bcxs NGTD -pt is on SSRI with reported recent exacerbation depression- will avoid linezolid -only known hardware is L knee- no issues- pt advised to monitor -baseline CPK 04/21/22 47 -pt with evidence of olecranon bursitis on CT- for I&D today Rec: Recommend IV antibiotics for treatment of likely true strep and staph aureus bacteremia. However, given skin source, if rapid clearance, 2 weeks likely adequate. Continue daptomycin 700mg IV q24 (~8mg/kg based on AIW). If 04/19 Bcxs and 04/20 Bcxs remain negative recommend that pt complete 2 week duration of daptomycin dated from 04/19 (end date 05/03/22) with weekly CBC with diff/CMP/CK. Pt reports she lives with daughter who can assist with IV abx. Pt to have I&D of olecranon collection today- will f/u OR cultures. Please page with any questions. Annmarie Coelho M.D. [facility] [employer] Pager [phone] Admission and Anticipated Discharge Date Admission Date: April 17, 2022 Subjective This patient recommendation is based on a telemedicine consult request which was completed asynchronously through chart review and information provided by the primary physician. The patient was not seen or examined today. The evaluation is consultative in nature and all patient care and treatment decisions can either be accepted or rejected by the patient's primary hospital-based treating physician using their own independent medical judgment for their patient. Time Spent Reviewing Chart: 21 - [address] elbow with evidence of cellulitis and "Ill-defined pocket of fluid overlying the olecranon bursa measuring approximately 4.8 x 4.1 x 2.3 cm. This is nonspecific but may reflect olecranon bursitis" Pt scheduled for I&D today. Repeat Bcxs remain NGTD. Results & Data ([facility]) Vital Signs (Past 12 Hours) Vital Signs Temp Pulse Pulse Resp BP Pulse Ox O2 Del Method 04/22/22 14:20 63 04/22/22 11:35 36.3 C L 66 16 182/74 H 95 Room Air 04/22/22 07:45 Room Air 04/22/22 07:44 36.4 C L 81 16 151/77 H 92 Room Air 04/22/22 05:58 70 Laboratory Results 04/17/22 08:35 Aerobic Blood Culture - Final Blood No growth in Aerobic bottle after 5 days. Anaerobic Blood Culture - Final No growth in Anaerobic bottle after 5 days. 04/17/22 08:35 Aerobic Blood Culture - Final Blood Coag neg staph not lugdunensis Anaerobic Blood Culture - Final Staphylococcus aureus Group A Beta Strep Coag neg staph not lugdunensis 04/20/22 23:08 Aerobic Blood Culture - Preliminary Blood No growth in Aerobic bottle after 24 hours. Anaerobic Blood Culture - Preliminary No growth in Anaerobic bottle after 24 hours. 04/20/22 23:08 Aerobic Blood Culture - Preliminary Blood No growth in Aerobic bottle after 24 hours. Anaerobic Blood Culture - Preliminary No growth in Anaerobic bottle after 24 hours. 04/19/22 16:01 Aerobic Blood Culture - Preliminary Blood No growth in Aerobic bottle after 48 hours. Anaerobic Blood Culture - Final 04/19/22 15:53 Aerobic Blood Culture - Preliminary Blood No growth in Aerobic bottle after 48 hours. Anaerobic Blood Culture - Preliminary No growth in Anaerobic bottle after 48 hours. 04/22/22 04/22/22 04/22/22 11:16 07:52 05:35 WBC RBC Hgb Hct MCV MCH MCHC RDW Std Deviation RDW Coeff of Rosalinda Plt Count MPV Sodium 139 Potassium 4.5 Chloride 103 Carbon Dioxide 31 Anion Gap 5 BUN 30 H Creatinine 0.90 Est Cr Clr Drug Dosing 68.4 Est GFR ( Amer) 70.0 Est GFR (Non-Af Amer) 60.4 BUN/Creatinine Ratio 33.3 H Glucose 116 H POC Glucose 96 103 H Calcium 9.0 04/22/22 04/21/22 04/21/22 05:35 20:19 16:32 WBC 7.28 RBC 4.02 L Hgb 12.7 Hct 38.7 MCV 96.3 MCH 31.6 MCHC 32.8 RDW Std Deviation 50.5 H RDW Coeff of Rosalinda 14.3 Plt Count 270 MPV 9.2 L Sodium Potassium Chloride Carbon Dioxide Anion Gap BUN Creatinine Est Cr Clr Drug Dosing Est GFR ( Amer) Est GFR (Non-Af Amer) BUN/Creatinine Ratio Glucose POC Glucose 135 H 118 H Calcium Diagnostic Findings Elbow CT 04/21/22 11:[address] WITHOUT CONTRAST CLINICAL HISTORY: Left elbow pain. Evaluate for fluid collection or tenosynovitis. COMPARISON STUDY: Left upper extremity venous Doppler ultrasound April 18, 2022. FINDINGS: Alignment of the left elbow is anatomic. There is no acute fracture. No radiopaque foreign bodies are noted. No definite evidence for a joint effusion. Note is made of posterior left lower arm, elbow and forearm skin thickening and subcutaneous stranding suggestive of cellulitis. There is no soft tissue gas. Ill-defined pocket of fluid overlying the olecranon measures approximately 4.8 x 4.1 x 2.3 cm. This may reflect olecranon bursitis. No additional fluid collections are present. Musculature is grossly unremarkable. No osseous lesions are present. IMPRESSION: 1. Posterior left lower arm, elbow and proximal forearm skin thickening and subcutaneous stranding suggestive of cellulitis. 2. Ill-defined pocket of fluid overlying the olecranon bursa measuring approximately 4.8 x 4.1 x 2.3 cm. This is nonspecific but may reflect olecranon bursitis. Sterility cannot be assessed by CT. 3. No acute fractures. No evidence for acute osteomyelitis. No definite joint effusion. ACT 112: Negative or not required by law. Electronically signed by: Patrick Govea M.D. 04/21/2022 3:32 PM Medications Administered Current Medications Acetaminophen (Acetaminophen 325 Mg Tab) 650 mg PO Q4H PRN PRN Reason: Pain or Fever Stop: 05/17/22 14:48 Albuterol (Albuterol Hfa 8 Gm Inhaler) 2 puffs INH Q6H PRN PRN Reason: wheeze Stop: 05/18/22 04:51 Last Admin: 04/18/22 06:05 Dose: 2 puffs Anastrozole (Anastrozole 1 Mg Tab) 1 mg PO QAM [facility] Stop: 05/18/22 08:59 Last Admin: 04/22/22 12:22 Dose: 1 mg Citalopram Hydrobromide (Citalopram 20 Mg Tab) 10 mg PO QAM [facility] Stop: 05/17/22 14:59 Last Admin: 04/22/22 12:22 Dose: 10 mg Dextrose (Dextrose 50% 50 Ml Syringe) 25 - 50 ml IV UD PRN; Protocol PRN Reason: Hypoglycemia Protocol Stop: 05/17/22 14:48 Glucagon (Glucagon For Inj 1 Mg Vial) 1 mg SQ UD PRN; Protocol PRN Reason: Hypoglycemia Protocol Stop: 05/17/22 14:48 Glucose (Glucose 10 Tab/Tube) 4 - 8 tab PO UD PRN; Protocol PRN Reason: Hypoglycemia Treatment Stop: 05/17/22 14:48 Glucose (Glucose 40% Gel 15 Gm Tube) 15 - 30 gm PO UD PRN; Protocol PRN Reason: Hypoglycemia Protocol Stop: 05/17/22 14:48 Heparin Sodium (Porcine) (Heparin Sod 5,000 Unit/0.5 Ml Vial) 7,500 units SQ Q8 [facility] Stop: 05/17/22 14:48 Last Admin: 04/22/22 05:41 Dose: Not Given Daptomycin 700 mg/ Syringe 14 mls @ 7 mls/min IV Q24H [facility]; Protocol Stop: 05/04/22 14:29 Last Admin: 04/21/22 15:54 Dose: 7 mls/min Insulin Aspart (Insulin Aspart Per Unit) 0 units SC ACHS [facility] Stop: 05/17/22 14:48 Last Admin: 04/22/22 11:27 Dose: Not Given Miscellaneous (Carbohydrates For Hypoglycemia ) 15 - 30 gm PO UD PRN PRN Reason: Hypoglycemia Protocol Stop: 05/17/22 14:48 Mupirocin (Mupirocin 2% Oint 22 Gm Tube) 1 appln EXT TID [facility] Stop: 05/20/22 22:09 Last Admin: 04/22/22 13:51 Dose: Not Given (1) Cellulitis Site of cellulitis: trunk Site of cellulitis of trunk: chest wall Qualified Code(s): L03.313 - Cellulitis of chest wall
[2022-04-22] MEDS: DAPTOmycin 700 MG in SYRINGE 0 ML IV SCH (16:19)
[2022-04-22] MEDS ORDERED: fentaNYL citrate 100 MCG/2 ML VIAL ONE (16:21)
[2022-04-22] MEDS ORDERED: PROPOFOL IV EMULSION 10 MG/ML 20 ML VIAL IV ONE (16:21)
[2022-04-22] MEDS ORDERED: LIDOCAINE 2% MPF LOCAL 5 ML VIAL INFIL ONE (16:21)
[2022-04-22] MEDS ORDERED: LIDOCAINE 1% LOCAL 20 ML VIAL ONE (16:24)
[2022-04-22] MEDS ORDERED: BUPIVACAINE 0.5 % 5 MG/1 ML MPF 30ML VIAL ONE (16:24)
[2022-04-22] MEDS ORDERED: HYDROmorphone INJ 1 MG/ML SYRINGE IV PRN (17:07)
[2022-04-22] MEDS ORDERED: ATROPINE SULFATE 0.1 MG/ML 10ML SYR IV PRN (17:07)
[2022-04-22] MEDS ORDERED: ONDANSETRON INJ 2 MG/ML 2 ML VIAL IV PRN (17:07)
[2022-04-22] MEDS ORDERED: ROCURONIUM BROMIDE 10 MG/ML 5 ML VIAL IV ONE (17:17)
[2022-04-22] MEDS ORDERED: ONDANSETRON INJ 2 MG/ML 2 ML VIAL ONE (17:17)
[2022-04-22] MEDS ORDERED: SUCCINYLCHOLINE CHLORIDE 20 MG/ML 10 ML VIAL IV ONE (17:17)
[2022-04-22] MEDS ORDERED: DEXAMETHASONE SOD INJ 4 MG/ML VIAL ONE (17:17)
--- NOTE | 2022-04-22 18:55 | Operative Report ---
Post Operative Report Pre & Post Diagnosis Operation Date: 04/22/22 08:40 Pre-Op Diagnosis: Left elbow septic olecranon bursitis Post-Op Diagnosis: Left elbow septic olecranon bursitis I identified the patient and participated in the time-out.: Yes Procedure Operation Date: 04/22/22 08:40 Actual Procedures Left elbow irrigation and debridement of septic olecranon bursitis ([id number]) - Josesito Jean M.D. Surgeon Josesito Jean MD First Aid Officer None Estimated Blood Loss 5 Findings Consistent with Post-Op Diagnosis Specimens Left elbow fluid for Gram stain and culture Drains Medium Hemovac Anesthesia Type General Complications none Disposition Disposition: Recovery Room Indications Ms. Bailon is an 81-year-old female who had a left arm cellulitis that consolidated into a focal fluid collection at the olecranon tip, consistent with a septic olecranon bursitis. Surgical debridement was recommended. Risks, benefits, and alternatives of surgery were explained in detail. The patient understood all this and wished to proceed. Description of Procedure Patient was identified in the preoperative holding area. Operative extremity was marked. Patient was then brought back to the operating room, and general anesthesia was induced without complication. Preoperative antibiotics were held until intraoperative cultures were obtained. Tourniquet was placed on the left upper arm. The arm was then prepped and draped in a standard sterile fashion using chlorhexidine prep. The arm was then exsanguinated with elevation only, and the tourniquet was inflated. Longitudinal incision was made along the posterior aspect of the elbow at the olecranon tip, and I immediately encountered a small amount of purulent purulent fluid. The fluid was collected on culture swabs for Gram stain and aerobic and anaerobic cultures. I then inserted a hemostat to break up septations within the septic olecranon bursa. The infected bursa was then aggressively debrided with curette and rongeur. After thorough debridement, I then copiously irrigated the wound with sterile saline via gravity irrigation. Hemovac drain was then placed within the olecranon bursa cavity and brought out through the lateral skin, then sewn in place. Skin incision was loosely closed with 3-0 Prolene. I then anesthetized the wound bed with a 50/50 mixture of 1% lidocaine and 0.5% Marcaine without epinephrine. Sterile dressings were then applied with Xeroform, gauze, ABD pad, and Pascual wrap. The drapes were removed, the patient was awakened from anesthesia, and taken to the Post Anesthesia Care Unit in stable condition. There were no immediate complications to the procedure. I was present and scrubbed for the entire procedure. I attest to the content of the Intraoperative Record and any orders documented therein. Any exceptions are noted below.
--- NOTE | 2022-04-22 19:28 | Anesthesiology Progress Note ---
Date of Service April 22, 2022 Anesthesia Post Procedure Vital Signs Vital Signs: Temp Pulse Pulse Pulse Resp BP Pulse Ox 04/22/22 19:25 36.1 C L 76 20 131/78 99 04/22/22 19:15 77 18 133/69 99 04/22/22 19:05 77 17 134/84 100 04/22/22 18:59 36.0 C L 88 18 131/73 99 04/22/22 16:50 36.8 C 77 18 167/90 H 96 04/22/22 16:02 36.5 C 63 18 178/78 H 98 04/22/22 14:20 63 04/22/22 11:35 36.3 C L 66 16 182/74 H 95 04/22/22 07:45 04/22/22 07:44 36.4 C L 81 16 151/77 H 92 04/22/22 05:58 70 04/22/22 03:26 36.9 C 83 16 140/77 92 04/22/22 00:28 76 04/21/22 23:27 36.6 C 80 16 143/71 H 94 04/21/22 19:45 36.4 C L 85 16 148/79 H 90 O2 Del Method O2 Flow Rate 04/22/22 19:25 Room Air 04/22/22 19:15 Room Air 04/22/22 19:05 Oxymask 5 04/22/22 18:59 Oxymask 9 04/22/22 16:50 Room Air 04/22/22 16:02 Room Air 04/22/22 14:20 04/22/22 11:35 Room Air 04/22/22 07:45 Room Air 04/22/22 07:44 Room Air 04/22/22 05:58 04/22/22 03:26 Room Air 04/22/22 00:28 04/21/22 23:27 Room Air 04/21/22 19:45 Room Air Pain Intensity Left Elbow: Pain Intensity: 3 Transfer of Care Handoff Completed per policy Notes Mental Status: alert / awake / arousable Patient Amnestic to Procedure: Yes Nausea / Vomiting: adequately controlled Pain: adequately controlled Airway Patency, RR, SpO2: stable & adequate BP & HR: stable & adequate Hydration State: stable & adequate Anesthetic Complications: no major complications apparent
[2022-04-23] MEDS: HEPARIN SOD 5,000 UNIT/0.5 ML VIAL SQ SCH ×3 (06:04→22:34)
[2022-04-23] MEDS: INSULIN ASPART PER UNIT SC SCH ×4 (08:29→20:14)
[2022-04-23] MEDS: MUPIROCIN 2% OINT 22 GM TUBE EXT SCH ×3 (08:29→20:14)
[2022-04-23] MEDS: CITALOPRAM 20 MG TAB PO SCH (08:30)
[2022-04-23] MEDS: ANASTROZOLE 1 MG TAB PO SCH (08:30)
[2022-04-23 08:55] LABS: Hematocrit (blood only) 39.7 % (37.0-47.0); Hemoglobin 12.8 g/dl (12.0-16.0); Mean Corpuscular Hemoglobin 31.8 pg (25.0-34.0); Mean Corpuscular Hgb Conc 32.2 g/dL (32.0-36.0); Mean Corpuscular Volume 98.8 fL (80.0-100.0); Mean Platelet Volume 9.4 fL (9.4-12.4); Platelet Count 260 K/uL (130-400); RDW Coefficient of Variation 14.1 % (11.5-14.5); RDW Standard Deviation 51.4 fL (36.4-46.3); Red Blood Count 4.02 M/uL (4.20-5.40); White Blood Count 5.99 K/ul (4.8-10.8)
[2022-04-23 09:16] LABS: BUN Creatinine Ratio 32.5 (10-20); C Reactive Protein 2.63 mg/dl (0-0.5); Calcium 9.2 mg/dl (8.5-10.1); Est GFR (African American) 80.7 ml/min; Est GFR (Non-African American) 69.6 ml/min
--- NOTE | 2022-04-23 11:33 | Orthopedic Progress Note ---
Date of Service April 23, 2022 Assessment & Plan (1) Septic olecranon bursitis: Plan: Patient is POD #1 from left elbow I&D with Hemovac placement. Patient is doing well post-operatively at this time. -Surgical dressing and Hemovac to remain in place until tomorrow -Pending wound cultures -Pain regime as ordered Admission and Anticipated Discharge Date Admission Date: April 17, 2022 Subjective Patient is POD #1 from I&D of left elbow with Hemovac placement performed by Dr. Jean. Patient this morning is resting in her chair and states her pain has significantly improved post-operatively. States she is able to finally move her left elbow without any issues. There was 5ml output from the drain from previous shift. Physical Exam Physical Exam: Left upper extremity with dressing and ines wrap in place. Hemovac with minimal output appreciated. Patient with full ROM without pain of her left elbow and is nontender to palpation. Able to move fingers without issue, no swelling appreciated, capillary refill less than 2 seconds. Results & Data ([facility]) Vital Signs (Past 12 Hours) Vital Signs Temp Pulse Pulse Pulse Resp BP Pulse Ox 04/23/22 07:50 04/23/22 05:56 67 04/23/22 07:00 36.4 C L 72 16 130/71 94 04/23/22 02:47 36.4 C L 82 18 143/82 H 90 O2 Del Method 04/23/22 07:50 Room Air 04/23/22 05:56 04/23/22 07:00 Room Air 04/23/22 02:47 Room Air Laboratory Results Laboratory Results WBC 5.99 K/ul (4.8-10.8) 04/23/22 07:59 RBC 4.02 M/uL (4.20-5.40) L 04/23/22 07:59 Hgb 12.8 g/dl (12.0-16.0) 04/23/22 07:59 Hct 39.7 % (37.0-47.0) 04/23/22 07:59 MCV 98.8 fL (80.0-100.0) 04/23/22 07:59 MCH 31.8 pg (25.0-34.0) 04/23/22 07:59 MCHC 32.2 g/dL (32.0-36.0) 04/23/22 07:59 RDW Std Deviation 51.4 fL (36.4-46.3) H 04/23/22 07:59 RDW Coeff of Rosalinda 14.1 % (11.5-14.5) 04/23/22 07:59 Plt Count 260 K/uL (130-400) 04/23/22 07:59 MPV 9.4 fL (9.4-12.4) 04/23/22 07:59 Immature Gran % (Auto) 1.1 % 04/18/22 00:47 Neut % (Auto) 91.6 % 04/18/22 00:47 Lymph % (Auto) 5.8 % 04/18/22 00:47 [place] % (Auto) 1.2 % 04/18/22 00:47 Eos % (Auto) 0.0 % 04/18/22 00:47 Baso % (Auto) 0.3 % 04/18/22 00:47 Neut # (Auto) 15.53 K/uL (1.40-6.50) H 04/18/22 00:47 Lymph # (Auto) 0.99 K/uL (1.2-3.4) L 04/18/22 00:47 [place] # (Auto) 0.21 K/uL (0.11-0.59) 04/18/22 00:47 Eos # (Auto) 0.00 K/uL (0-0.50) 04/18/22 00:47 Baso # (Auto) 0.05 K/uL (0-0.2) 04/18/22 00:47 Immature Gran # (Auto) 0.19 K/uL (0.01-0.20) 04/18/22 00:47 Toxic Granulation 1+ 04/18/22 00:47 Toxic Vacuolation 1+ 04/18/22 00:47 Polychromasia 1+ 04/17/22 08:18 PT 11.3 Seconds (9.0-12.0) 04/17/22 08:18 INR 1.1 (0.9-1.1) 04/17/22 08:18 APTT 29.6 Seconds (21.0-31.0) 04/17/22 08:18 PTT Ratio 1.1 04/17/22 08:18 VBG pH 7.47 (7.36-7.41) H 04/17/22 08:35 VBG pCO2 38 mmHg (38-50) 04/17/22 08:35 VBG pO2 53 mmHg 04/17/22 08:35 VBG HCO3 28 mmol/L 04/17/22 08:35 VBG O2 Saturation 89.7 % 04/17/22 08:35 VBG Base Excess 3.9 mEq/L 04/17/22 08:35 Sodium 139 mmol/L (136-145) 04/23/22 07:59 Potassium 5.0 mmol/L (3.5-5.1) 04/23/22 07:59 Chloride 103 mmol/L (98-107) 04/23/22 07:59 Carbon Dioxide 33 mmol/L (21-32) H 04/23/22 07:59 Anion Gap 3 (3-11) 04/23/22 07:59 BUN 26 mg/dl (6-23) H 04/23/22 07:59 Creatinine 0.80 mg/dl (0.6-1.2) 04/23/22 07:59 Est Cr Clr Drug Dosing 77.0 ml/min 04/23/22 07:59 Est GFR ( Amer) 80.7 ml/min 04/23/22 07:59 Est GFR (Non-Af Amer) 69.6 ml/min 04/23/22 07:59 BUN/Creatinine Ratio 32.5 (10-20) H 04/23/22 07:59 Glucose 145 mg/dl (70-99(Fasting)) H 04/23/22 07:59 POC Glucose 149 mg/dl (70-99) H 04/23/22 07:50 Estimat Average Glucose 134 mg/dl 04/18/22 00:47 Hemoglobin A1c 6.3 % (4.5-5.6) H 04/18/22 00:47 Lactate 1.6 mmol/L (0.4-2.0) 04/17/22 10:36 Calcium 9.2 mg/dl (8.5-10.1) 04/23/22 07:59 Magnesium 1.9 mg/dl (1.7-2.4) 04/21/22 06:39 Total Bilirubin 0.9 mg/dl (0.2-1.0) 04/17/22 08:18 Direct Bilirubin 0.3 mg/dl (0-0.2) H 04/17/22 08:18 AST 59 U/L (13-39) H 04/17/22 08:18 ALT 39 U/L (7-52) 04/17/22 08:18 Alkaline Phosphatase 195 U/L (34-104) H 04/17/22 08:18 Total Creatine Kinase 47 U/L (26-192) 04/21/22 06:39 Troponin I High Sens 19.4 pg/ml (0-14) H 04/18/22 07:09 C-Reactive Protein 2.63 mg/dl (0-0.5) H 04/23/22 07:59 B-Natriuretic Peptide 80 pg/ml (0-100) 04/17/22 09:51 Total Protein 7.0 gm/dl (6.0-8.3) 04/17/22 08:18 Albumin 2.9 gm/dl (3.4-5.0) L 04/17/22 08:18 Procalcitonin 1.21 ng/ml (0-0.5) H 04/17/22 08:18 Urine Color Yellow 04/18/22 00:00 Urine Appearance Clear (Clear) 04/18/22 00:00 Urine pH 6.5 (4.5-7.5) 04/18/22 00:00 Ur Specific [place] 1.009 (1.000-1.030) 04/18/22 00:00 Urine Protein Trace (Negative) H 04/18/22 00:00 Urine Glucose (UA) Negative (Negative) 04/18/22 00:00 Urine Ketones Negative (Negative) 04/18/22 00:00 Urine Blood 1+ (Negative) H 04/18/22 00:00 Urine Nitrite Negative (Negative) 04/18/22 00:00 Urine Bilirubin Negative (Negative) 04/18/22 00:00 Urine Urobilinogen Negative (Negative) 04/18/22 00:00 Ur Leukocyte Esterase Negative (Negative) 04/18/22 00:00 Urine WBC (Auto) 1-5 /hpf (0-5) 04/18/22 00:00 Urine RBC (Auto) 0-4 /hpf (0-4) 04/18/22 00:00 U Hyaline Cast (Auto) 0 /lpf (0-5) 04/18/22 00:00 U Epithel Cells (Auto) 10-20 /lpf (0-5) H 04/18/22 00:00 Urine Bacteria (Auto) Negative (Negative) 04/18/22 00:00 Nasal Screen MRSA (PCR) Negative (Negative) 04/17/22 11:32 Adenovirus (PCR) Not Detected (NotDetected) 04/17/22 11:41 B. pertussis DNA (PCR) Not Detected (NotDetected) 04/17/22 11:41 B.parapertussis DNA PCR Not Detected (NotDetected) 04/17/22 11:41 C. pneumoniae DNA (PCR) Not Detected (NotDetected) 04/17/22 11:41 Coronavirus OC43 (PCR) Not Detected (NotDetected) 04/17/22 11:41 Coronavirus HKU1 (PCR) Not Detected (NotDetected) 04/17/22 11:41 Coronavirus 229E (PCR) Not Detected (NotDetected) 04/17/22 11:41 SARS-CoV-2 (PCR) Not Detected (NotDetected) 04/17/22 11:41 Coronavirus NL63 (PCR) DETECTED (NotDetected) A* 04/17/22 11:41 Human Metapneumovir PCR Not Detected (NotDetected) 04/17/22 11:41 Influenza Type A (PCR) Not Detected (NotDetected) 04/17/22 11:41 Influenza Type B (PCR) Not Detected (NotDetected) 04/17/22 11:41 M. pneumoniae (PCR) Not Detected (NotDetected) 04/17/22 11:41 Parainfluenza 1 (PCR) Not Detected (NotDetected) 04/17/22 11:41 Parainfluenza 2 (PCR) Not Detected (NotDetected) 04/17/22 11:41 Parainfluenza 3 (PCR) Not Detected (NotDetected) 04/17/22 11:41 Parainfluenza 4 (PCR) Not Detected (NotDetected) 04/17/22 11:41 RSV (PCR) Not Detected (NotDetected) 04/17/22 11:41 Entero/Rhino (PCR) Not Detected (NotDetected) 04/17/22 11:41 SARS-CoV-2, RNA, NAAT NEGATIVE (NEGATIVE) 04/17/22 08:35 Staphylococcus sp PCR DETECTED (NotDetected) A 04/17/22 08:35 Staph aureus (PCR) DETECTED (NotDetected) A 04/17/22 08:35 mecA/C & MREJ Resist Gene MRSA Not Detected (NotDetected) 04/17/22 08:35 mecA/C-Methicil Resis Gene DETECTED (NotDetected) A 04/17/22 08:35 Staph epidermidis (PCR) DETECTED (NotDetected) A 04/17/22 08:35 Streptococcus sp PCR DETECTED (NotDetected) A 04/17/22 08:35 S. pyogenes (PCR) DETECTED (NotDetected) A 04/17/22 08:35 Bld Cult ID Panel PCR See PCR Comment (NotDetected) 04/17/22 08:35 Extremity Venous Study 04/18/22 14:16 LEFT UPPER EXTREMITY VENOUS DOPPLER ULTRASOUND CLINICAL HISTORY: Left upper extremity swelling. Evaluate for DVT. COMPARISON STUDY: No previous studies for comparison. TECHNIQUE: Sonography of the deep venous system of the left upper extremity was performed. FINDINGS: The left internal jugular, subclavian, axillary, brachial, radial, ulnar, cephalic and basilic veins were patent. No deep venous thrombus was identified within the left upper extremity. IMPRESSION: No deep venous thrombus within the left upper extremity. Elbow CT 04/21/22 11:[address] WITHOUT CONTRAST CLINICAL HISTORY: Left elbow pain. Evaluate for fluid collection or tenosynovitis. COMPARISON STUDY: Left upper extremity venous Doppler ultrasound April 18, 2022. FINDINGS: Alignment of the left elbow is anatomic. There is no acute fracture. No radiopaque foreign bodies are noted. No definite evidence for a joint effusion. Note is made of posterior left lower arm, elbow and forearm skin thickening and subcutaneous stranding suggestive of cellulitis. There is no soft tissue gas. Ill-defined pocket of fluid overlying the olecranon measures approximately 4.8 x 4.1 x 2.3 cm. This may reflect olecranon bursitis. No additional fluid collections are present. Musculature is grossly unremarkable. No osseous lesions are present. IMPRESSION: 1. Posterior left lower arm, elbow and proximal forearm skin thickening and subcutaneous stranding suggestive of cellulitis. 2. Ill-defined pocket of fluid overlying the olecranon bursa measuring approximately 4.8 x 4.1 x 2.3 cm. This is nonspecific but may reflect olecranon bursitis. Sterility cannot be assessed by CT. 3. No acute fractures. No evidence for acute osteomyelitis. No definite joint effusion.
--- NOTE | 2022-04-23 14:46 | Infectious Disease Progress Nt ---
Date of Service April 23, 2022 Assessment & Plan (1) Cellulitis: Plan: #cellulitis -presence of extensive cellulitis on admission and leukocytosis- both dramatically improved with antibiotics, raises possibility that MSSA and GAS in blood cultures on admission represent true bacteremia, although typically multiple skin gopi in 1 of 2 sets would argue contaminants. - pt reports frequent picking of skin which was likely portal of entry- exacerbated by chronic dermatitis which likely led to rapid spread of erythema and mixed picture on presentation. Pt advised not to pick skin and to apply moisturizer regularly to skin to avoid fissures. -04/17 TTE with very difficult images but no significant findings. -Patient was on ceftriaxone and vancomycin since 04/18. Changed to dapto 04/20 - 04/17 MRSA nasal screen negative. 04/17 blood culture with group A beta strep, CISO, not lugdenensis and MSSA in 1 of 2 sets. - 04/19 blood cultures NGTD, 04/20 Bcxs NGTD -pt is on SSRI with reported recent exacerbation depression- will avoid linezolid -only known hardware is L knee- no issues- pt advised to monitor -baseline CPK 04/21/22 47 -pt developed worsening of elbow erythema/pain with fluctuant area- culture of elbow is NGTD (few polys, no org on gram stain) -pt with evidence of olecranon bursitis on CT- s/p I&D 04/23 with hemovac placement, OR cultures pending Rec: Recommend IV antibiotics for treatment of likely true strep and staph aureus bacteremia. However, given skin source and rapid clearance with negative 04/19 Bcxs and 04/20 Bcxs, 2 weeks likely adequate. Staph aureus in blood cx identified as MSSA, so will change daptomycin at this time to cefazolin 2 g IV q8 for coverage of MSSA and GAS. If no new findings in OR cultures, plan will be to continue cefazolin until 05/03/22 with weekly CBC with diff and CMP. This is likely to be sufficient duration for septic olecranon bursitis after drainage. Oral antibiotics may be option after 05/03 if duration of abx extended, depending on OR cultures. Pt s/p I&D of olecranon collection today- OR culture results will determine if above plan requires modification before discharge. Please page with any questions. [facility] physician on-call is available over weekend if input needed- Dr. Banegas to take over service Tuesday. Annmarie Coelho M.D. [facility] Pager [phone] Admission and Anticipated Discharge Date Admission Date: April 17, 2022 Subjective This patient recommendation is based on a telemedicine consult request which was completed asynchronously through chart review and information provided by the primary physician. The patient was not seen or examined today. The evaluation is consultative in nature and all patient care and treatment decisions can either be accepted or rejected by the patient's primary hospital-based treating physician using their own independent medical judgment for their patient. Time Spent Reviewing Chart: 11 - 20 minutes Pt went to OR today- had drainage of septic olecranon bursitis with hemovac placement. Cultures are pending from OR. Superficial elbow culture NGTD. Results & Data ([facility]) Vital Signs (Past 12 Hours) Vital Signs Temp Pulse Pulse Pulse Resp BP Pulse Ox 04/23/22 11:40 36.8 C 78 16 104/65 94 04/23/22 07:50 04/23/22 05:56 67 04/23/22 07:00 36.4 C L 72 16 130/71 94 04/23/22 02:47 36.4 C L 82 18 143/82 H 90 O2 Del Method 04/23/22 11:40 Room Air 04/23/22 07:50 Room Air 04/23/22 05:56 04/23/22 07:00 Room Air 04/23/22 02:47 Room Air Laboratory Results 04/22/22 18:27 Gram Stain - Final Elbow,Left Aerobic and Anaerobic Culture - Preliminary No growth to date. 04/20/22 23:08 Aerobic Blood Culture - Preliminary Blood No growth in Aerobic bottle after 48 hours. Anaerobic Blood Culture - Preliminary No growth in Anaerobic bottle after 48 hours. 04/20/22 23:08 Aerobic Blood Culture - Preliminary Blood No growth in Aerobic bottle after 48 hours. Anaerobic Blood Culture - Preliminary No growth in Anaerobic bottle after 48 hours. 04/17/22 08:35 Aerobic Blood Culture - Final Blood No growth in Aerobic bottle after 5 days. Anaerobic Blood Culture - Final No growth in Anaerobic bottle after 5 days. 04/23/22 04/23/22 04/23/22 11:51 07:59 07:59 WBC 5.99 RBC 4.02 L Hgb 12.8 Hct 39.7 MCV 98.8 MCH 31.8 MCHC 32.2 RDW Std Deviation 51.4 H RDW Coeff of Rosalinda 14.1 Plt Count 260 MPV 9.4 Sodium 139 Potassium 5.0 Chloride 103 Carbon Dioxide 33 H Anion Gap 3 BUN 26 H Creatinine 0.80 Est Cr Clr Drug Dosing 77.0 Est GFR ( Amer) 80.7 Est GFR (Non-Af Amer) 69.6 BUN/Creatinine Ratio 32.5 H Glucose 145 H POC Glucose 129 H Calcium 9.2 C-Reactive Protein 2.63 H 04/23/22 04/22/22 04/22/22 07:50 20:06 16:36 WBC RBC Hgb Hct MCV MCH MCHC RDW Std Deviation RDW Coeff of Rosalinda Plt Count MPV Sodium Potassium Chloride Carbon Dioxide Anion Gap BUN Creatinine Est Cr Clr Drug Dosing Est GFR ( Amer) Est GFR (Non-Af Amer) BUN/Creatinine Ratio Glucose POC Glucose 149 H 92 95 Calcium C-Reactive Protein Diagnostic Findings Elbow CT 04/21/22 11:[address] WITHOUT CONTRAST CLINICAL HISTORY: Left elbow pain. Evaluate for fluid collection or tenosynovitis. COMPARISON STUDY: Left upper extremity venous Doppler ultrasound April 18, 2022. FINDINGS: Alignment of the left elbow is anatomic. There is no acute fracture. No radiopaque foreign bodies are noted. No definite evidence for a joint effusion. Note is made of posterior left lower arm, elbow and forearm skin thickening and subcutaneous stranding suggestive of cellulitis. There is no soft tissue gas. Ill-defined pocket of fluid overlying the olecranon measures approximately 4.8 x 4.1 x 2.3 cm. This may reflect olecranon bursitis. No additional fluid collections are present. Musculature is grossly unremarkable. No osseous lesions are present. IMPRESSION: 1. Posterior left lower arm, elbow and proximal forearm skin thickening and subcutaneous stranding suggestive of cellulitis. 2. Ill-defined pocket of fluid overlying the olecranon bursa measuring approximately 4.8 x 4.1 x 2.3 cm. This is nonspecific but may reflect olecranon bursitis. Sterility cannot be assessed by CT. 3. No acute fractures. No evidence for acute osteomyelitis. No definite joint effusion. ACT 112: Negative or not required by law. Electronically signed by: Patrick Govea M.D. 04/21/2022 3:32 PM Medications Administered Current Medications Acetaminophen (Acetaminophen 325 Mg Tab) 650 mg PO Q4H PRN PRN Reason: Pain or Fever Stop: 05/17/22 14:48 Albuterol (Albuterol Hfa 8 Gm Inhaler) 2 puffs INH Q6H PRN PRN Reason: wheeze Stop: 05/18/22 04:51 Last Admin: 04/18/22 06:05 Dose: 2 puffs Anastrozole (Anastrozole 1 Mg Tab) 1 mg PO QAM [facility] Stop: 05/18/22 08:59 Last Admin: 04/23/22 08:30 Dose: 1 mg Citalopram Hydrobromide (Citalopram 20 Mg Tab) 10 mg PO QAM [facility] Stop: 05/17/22 14:59 Last Admin: 04/23/22 08:30 Dose: 10 mg Dextrose (Dextrose 50% 50 Ml Syringe) 25 - 50 ml IV UD PRN; Protocol PRN Reason: Hypoglycemia Protocol Stop: 05/17/22 14:48 Glucagon (Glucagon For Inj 1 Mg Vial) 1 mg SQ UD PRN; Protocol PRN Reason: Hypoglycemia Protocol Stop: 05/17/22 14:48 Glucose (Glucose 10 Tab/Tube) 4 - 8 tab PO UD PRN; Protocol PRN Reason: Hypoglycemia Treatment Stop: 05/17/22 14:48 Glucose (Glucose 40% Gel 15 Gm Tube) 15 - 30 gm PO UD PRN; Protocol PRN Reason: Hypoglycemia Protocol Stop: 05/17/22 14:48 Heparin Sodium (Porcine) (Heparin Sod 5,000 Unit/0.5 Ml Vial) 7,500 units SQ Q8 SURINDER Stop: 05/17/22 14:48 Last Admin: 04/23/22 14:07 Dose: 7,500 units Daptomycin 700 mg/ Syringe 14 mls @ 7 mls/min IV Q24H SURINDER; Protocol Stop: 05/04/22 14:29 Last Admin: 04/22/22 16:19 Dose: 7 mls/min Insulin Aspart (Insulin Aspart Per Unit) 0 units SC ACHS [facility] Stop: 05/17/22 14:48 Last Admin: 04/23/22 12:10 Dose: 3 units Miscellaneous (Carbohydrates For Hypoglycemia ) 15 - 30 gm PO UD PRN PRN Reason: Hypoglycemia Protocol Stop: 05/17/22 14:48 Mupirocin (Mupirocin 2% Oint 22 Gm Tube) 1 appln EXT TID SURINDER Stop: 05/20/22 22:09 Last Admin: 04/23/22 12:55 Dose: Not Given (1) Cellulitis Site of cellulitis: trunk Site of cellulitis of trunk: chest wall Qualified Code(s): L03.313 - Cellulitis of chest wall
[2022-04-23] MEDS: ceFAZolin 2000MG 2,000 MG/15 ML SYR IV SCH ×2 (15:43→22:40)
--- NOTE | 2022-04-23 22:28 | Hospitalist Progress Note ---
Date of Service April 23, 2022 Assessment & Plan (1) Cellulitis: Plan: Sepsis, suspect 2/ cellulitis and now olecranon bursitis Acute serious risk Tachycardic, elevated lactate, elevated Pro-Abdoulaye Patient with states the rash began on her left arm in the antecubital and elbow area and spread over the rest of her body. -Initially improved with antibiotic therapy, worsened on 04/21. Fluid collection felt and confirmed by CT imaging, orthopedic consulted with expectation of incision and drainage on 04/22/2022 Transthoracic echocardiogram shows normal LV size and function EF preserved no evidence of pericardial effusion or valvular vegetations repeat blood cultures are negative to date Bacteremia appreciate infectious disease consultation consider bacteria discovered in blood cultures as a true source now source is confirmed by olecranon bursitis declaring itself and requiring I&D. Will complete 2 weeks course of antibiotics currently switching to daptomycin. Patient has a ultrasound-guided catheter and we will time to 2 weeks if blood cultures obtained on the continues to be negative meaning last dose will be May 03 SP I and D of olceranon bursa. Patient feels better, ID switched to cefazolin. Will discuss with family if they can handle q8h or use continous. Initial plan was to discharge on dapto which family was agreeable. But dapto is not reuiqred as this is MSSA. Acute hypoxic respiratory failure, acute and serous riskresolved biofire shows non Covid 19, coronavirus presence remains in airborne precautions at this time Improved with supplemental oxygen, DuoNeb room air as of 04/19/2022 Hypokalemia acute and self limited replete Chronic and stable history of breast cancer ductal carcinoma left, endometrial cancer, s/p hysterectomy Continue anastrozole Anxiety/depression chronic continue medical management this is chronic and stable as the patient stopped her medication prior to admission and depression worsened Continue citalopram daily Chronic venous insufficiency, chronic poorly controlled chronic and stable Patient is at risk for DVT/PE, lower extremity Dopplers show question partially occlusive DVT of the left lower extremity (1 branch of her left peroneal vein this was felt to be present by compressibility changes) but no acute occlusive DVT identified patient is currently on heparin 7500 units Q8. Undergoing Doppler of her left upper extremity but comments of a partially occlusive distal peroneal DVT would be considered an isolated and distal DVT and may not be amenable to treatment at this time if the patient has a DVT of upper extremity will progress to full therapeutic anticoagulation however if not considering this a distal small DVT we will continue her subcutaneous heparin History of prediabetes acute and likely moderate risk the patient Without history of diabetes or antiglycemic treatment Admitting BSG 200 Weight-based SSI ordered, A1c 6.3 ?Porcelain Gallbladder chronic undetermined risk the patient potential source of infection or arbitrary nidus of bacteremia infection - Noted on prior imaging - DVT prevention is heparin as mentioned above CODE STATUS: DNR/DNI (2) Acute respiratory failure with hypoxia: (3) Chronic venous insufficiency: (4) Depression: (5) Hypokalemia: (6) Hypertension: (7) Hyperlipidemia: (8) Prediabetes: (9) Venous stasis dermatitis: (10) Breast cancer: Admission and Anticipated Discharge Date Admission Date: April 17, 2022 Subjective Patient reports feeling much better today. She has no new complaints. She is able to move her arms freely. Review of Systems Review of Systems: All systems reviewed & are unremarkable except as noted in HPI & below Physical Exam Constitutional: WD/WN, vitals as above Eyes: PERRL, conjunctivae normal, anicteric sclerae ENMT: external ear and nose normal, oropharynx normal Neck: trachea midline, no thyromegaly Respiratory: normal respiratory effort, lungs clear to auscultation Cardiovascular: RRR, no murmur, no edema Gastrointestinal (Abdomen): normal bowel sounds, soft, nontender, no hepatosplenomegaly Psychiatric: A+Ox3, euthymic affect Lymphatic: no cervical or axillary lymphadenopathy Results & Data Results & Data ([facility]) Vital Signs (Past 12 Hours) Vital Signs Temp Pulse Pulse Resp BP Pulse Ox O2 Del Method 04/23/22 19:25 36.7 C 82 18 139/75 94 Room Air 04/23/22 16:00 37.0 C 79 18 172/70 H 95 Room Air 04/23/22 13:43 78 04/23/22 11:40 36.8 C 78 16 104/65 94 Room Air PG Care Time/CCT Total # of Minutes Spent Total Time Spent with Patient: Total time spent is greater than 50% in coordination of care (as documented) at patient's floor/unit and/or counseling patient: Coding Level of Care Code 53720 SUB INP/OBS CARE 3/50MIN Diagnoses Cellulitis L03.313 Site of cellulitis: trunk Site of cellulitis of trunk: chest wall Acute respiratory failure with hypoxia J96.01 Chronic venous insufficiency I87.2 Depression F32.9 Hypokalemia E87.6 Hypertension I10 Hyperlipidemia E78.5 Prediabetes R73.03 Venous stasis dermatitis I87.2 Breast cancer C50.919 (1) Cellulitis Site of cellulitis: trunk Site of cellulitis of trunk: chest wall Qualified Code(s): L03.313 - Cellulitis of chest wall
[2022-04-24] MEDS: HEPARIN SOD 5,000 UNIT/0.5 ML VIAL SQ SCH ×3 (06:15→22:38)
[2022-04-24] MEDS: ceFAZolin 2000MG 2,000 MG/15 ML SYR IV SCH ×3 (06:15→22:38)
--- NOTE | 2022-04-24 07:46 | Orthopedic Progress Note ---
Date of Service April 24, 2022 Assessment & Plan (1) Septic olecranon bursitis: Plan: Patient is POD #2 from left elbow I&D with Hemovac placement Doing well this morning, pain has significantly improved, moving elbow freely -Hemovac drain removed and dressing changed today. May continue daily dressing changes with adaptic, gauze and MIKE bandage. Remaining sutures to be removed in 7-10 days -Intra-operative wound cultures NGTD. Currently on Cefazolin for MSSA and GAS coverage. Continue abx per ID -Pain regime as ordered Follow-up with Dr. Jean in orthopedic surgery clinic in 7-10 days. Please call [facility] at [phone] to make an appointment Orthopedics will sign off at this time. Please call back with any questions or concerns Admission and Anticipated Discharge Date Admission Date: April 17, 2022 Subjective Doing very well this morning, sitting up and eating breakfast at bedside. Pain has significantly improved, moving elbow freely. No other acute complaints this morning. Looking forward to discharge planning when able. Physical Exam Physical Exam: General: Pleasant. Sitting up at bedside, eating breakfast. No acute distress Neuro: Awake, alert and oriented x 3 Left elbow/upper extremity: Mild edema about the elbow and faint erythema. Hemovac with minimal output- removed without difficulty. Incision site well approximated with sutures in place, no wound dehiscence or abnormal drainage. No significant tenderness to palpation. ROM remains intact without significant pain or difficulty. Fingers/wrist mobile, sensation and radial pulse intact, capillary refill <2 seconds Results & Data ([facility]) Vital Signs (Past 12 Hours) Vital Signs Temp Pulse Pulse Resp BP Pulse Ox O2 Del Method 04/24/22 07:37 63 04/24/22 02:57 36.4 C L 71 18 125/72 93 Room Air 04/23/22 23:50 74 04/23/22 23:01 36.8 C 80 18 139/83 92 Room Air Laboratory Results Laboratory Tests 04/23/22 04/23/22 04/24/22 07:59 07:59 07:57 WBC 5.99 RBC 4.02 L Hgb 12.8 Sodium 139 Potassium 5.0 Chloride 103 Carbon Dioxide 33 H Anion Gap 3 BUN 26 H Creatinine 0.80 BUN/Creatinine Ratio 32.5 H POC Glucose 113 H C-Reactive Protein 2.63 H
[2022-04-24] MEDS: INSULIN ASPART PER UNIT SC SCH ×4 (09:59→20:58)
[2022-04-24] MEDS: ANASTROZOLE 1 MG TAB PO SCH (10:00)
[2022-04-24] MEDS: CITALOPRAM 20 MG TAB PO SCH (10:00)
[2022-04-24] MEDS: MUPIROCIN 2% OINT 22 GM TUBE EXT SCH ×3 (10:06→20:58)
--- NOTE | 2022-04-24 22:49 | Hospitalist Progress Note ---
Date of Service April 24, 2022 Assessment & Plan (1) Cellulitis: Plan: Sepsis, suspect 2/ cellulitis and now olecranon bursitis Acute serious risk Tachycardic, elevated lactate, elevated Pro-Abdoulaye Patient with states the rash began on her left arm in the antecubital and elbow area and spread over the rest of her body. -Initially improved with antibiotic therapy, worsened on 04/21. Fluid collection felt and confirmed by CT imaging, orthopedic consulted with expectation of incision and drainage on 04/22/2022 Transthoracic echocardiogram shows normal LV size and function EF preserved no evidence of pericardial effusion or valvular vegetations repeat blood cultures are negative to date Bacteremia appreciate infectious disease consultation consider bacteria discovered in blood cultures as a true source now source is confirmed by olecranon bursitis declaring itself and requiring I&D. Will complete 2 weeks course of antibiotics currently switching to daptomycin. Patient has a ultrasound-guided catheter and we will time to 2 weeks if blood cultures obtained on the continues to be negative meaning last dose will be May 03 SP I and D of olceranon bursa. Patient feels better, ID switched to cefazolin. Will discuss with family if they can handle q8h or use continous. Patient is agreeable to switching to cefazolin. Will need to set up home health. Acute hypoxic respiratory failure, acute and serous riskresolved biofire shows non Covid 19, coronavirus presence remains in airborne precautions at this time Improved with supplemental oxygen, DuoNeb room air as of 04/19/2022 Hypokalemia acute and self limited replete Chronic and stable history of breast cancer ductal carcinoma left, endometrial cancer, s/p hysterectomy Continue anastrozole Anxiety/depression chronic continue medical management this is chronic and stable as the patient stopped her medication prior to admission and depression worsened Continue citalopram daily Chronic venous insufficiency, chronic poorly controlled chronic and stable Patient is at risk for DVT/PE, lower extremity Dopplers show question partially occlusive DVT of the left lower extremity (1 branch of her left peroneal vein this was felt to be present by compressibility changes) but no acute occlusive DVT identified patient is currently on heparin 7500 units Q8. Undergoing Doppler of her left upper extremity but comments of a partially occlusive distal peroneal DVT would be considered an isolated and distal DVT and may not be amenable to treatment at this time if the patient has a DVT of upper extremity will progress to full therapeutic anticoagulation however if not considering this a distal small DVT we will continue her subcutaneous heparin History of prediabetes acute and likely moderate risk the patient Without history of diabetes or antiglycemic treatment Admitting BSG 200 Weight-based SSI ordered, A1c 6.3 ?Porcelain Gallbladder chronic undetermined risk the patient potential source of infection or arbitrary nidus of bacteremia infection - Noted on prior imaging - DVT prevention is heparin as mentioned above CODE STATUS: DNR/DNI (2) Acute respiratory failure with hypoxia: (3) Chronic venous insufficiency: (4) Depression: (5) Hypokalemia: (6) Hypertension: (7) Hyperlipidemia: (8) Prediabetes: (9) Venous stasis dermatitis: (10) Breast cancer: Admission and Anticipated Discharge Date Admission Date: April 17, 2022 Subjective Patient reports feeling well. Her arm is much better and she is able to move it. She is agreeable to getting cefazolin and waiting until this is set up. Review of Systems Review of Systems: All systems reviewed & are unremarkable except as noted in HPI & below Physical Exam Constitutional: WD/WN, vitals as above Eyes: PERRL, conjunctivae normal, anicteric sclerae ENMT: external ear and nose normal, oropharynx normal Neck: trachea midline, no thyromegaly Respiratory: normal respiratory effort, lungs clear to auscultation Cardiovascular: RRR, no murmur, no edema Gastrointestinal (Abdomen): normal bowel sounds, soft, nontender, no hepatosplenomegaly Psychiatric: A+Ox3, euthymic affect Lymphatic: no cervical or axillary lymphadenopathy Results & Data Results & Data ([facility]) Vital Signs (Past 12 Hours) Vital Signs Temp Pulse Pulse Resp BP Pulse Ox O2 Del Method 04/24/22 22:39 36.6 C 78 18 121/75 95 Room Air 04/24/22 19:16 36.4 C L 80 18 125/72 96 Room Air 04/24/22 16:00 36.8 C 77 16 128/75 93 Room Air 04/24/22 16:00 75 04/24/22 11:55 36.4 C L 63 16 138/75 94 Room Air PG Care Time/CCT Total # of Minutes Spent Total Time Spent with Patient: Total time spent is greater than 50% in coordination of care (as documented) at patient's floor/unit and/or counseling patient: Coding Level of Care Code 16293 SUB INP/OBS CARE Diagnoses Cellulitis L03.313 Site of cellulitis: trunk Site of cellulitis of trunk: chest wall Acute respiratory failure with hypoxia J96.01 Chronic venous insufficiency I87.2 Depression F32.9 Hypokalemia E87.6 Hypertension I10 Hyperlipidemia E78.5 Prediabetes R73.03 Venous stasis dermatitis I87.2 Breast cancer C50.919 (1) Cellulitis Site of cellulitis: trunk Site of cellulitis of trunk: chest wall Qualified Code(s): L03.313 - Cellulitis of chest wall
[2022-04-25] MEDS: HEPARIN SOD 5,000 UNIT/0.5 ML VIAL SQ SCH ×3 (06:34→20:59)
[2022-04-25] MEDS: ceFAZolin 2000MG 2,000 MG/15 ML SYR IV SCH ×3 (06:35→23:36)
[2022-04-25] MEDS: CITALOPRAM 20 MG TAB PO SCH (08:35)
[2022-04-25] MEDS: ANASTROZOLE 1 MG TAB PO SCH (08:35)
[2022-04-25] MEDS: INSULIN ASPART PER UNIT SC SCH ×4 (08:35→20:52)
[2022-04-25] MEDS: MUPIROCIN 2% OINT 22 GM TUBE EXT SCH ×3 (08:36→21:00)
--- NOTE | 2022-04-25 22:24 | Hospitalist Progress Note ---
Date of Service April 25, 2022 Assessment & Plan (1) Cellulitis: Plan: Sepsis, suspect 2/ cellulitis and now olecranon bursitis Acute serious risk Tachycardic, elevated lactate, elevated Pro-Abdoulaye Patient with states the rash began on her left arm in the antecubital and elbow area and spread over the rest of her body. -Initially improved with antibiotic therapy, worsened on 04/21. Fluid collection felt and confirmed by CT imaging, orthopedic consulted with expectation of incision and drainage on 04/22/2022 Transthoracic echocardiogram shows normal LV size and function EF preserved no evidence of pericardial effusion or valvular vegetations repeat blood cultures are negative to date Bacteremia appreciate infectious disease consultation consider bacteria discovered in blood cultures as a true source now source is confirmed by olecranon bursitis declaring itself and requiring I&D. Will complete 2 weeks course of antibiotics currently switching to daptomycin. Patient has a ultrasound-guided catheter and we will time to 2 weeks if blood cultures obtained on the continues to be negative meaning last dose will be May 03 SP I and D of olceranon bursa. Patient feels better, ID switched to cefazolin. Will discuss with family if they can handle q8h or use continous. Patient is agreeable to switching to cefazolin. Will need to set up home health. Plan to discharge within 24-48 hours Acute hypoxic respiratory failure, acute and serous riskresolved biofire shows non Covid 19, coronavirus presence remains in airborne precautions at this time Improved with supplemental oxygen, DuoNeb room air as of 04/19/2022 Hypokalemia acute and self limited replete Chronic and stable history of breast cancer ductal carcinoma left, endometrial cancer, s/p hysterectomy Continue anastrozole Anxiety/depression chronic continue medical management this is chronic and stable as the patient stopped her medication prior to admission and depression worsened Continue citalopram daily Chronic venous insufficiency, chronic poorly controlled chronic and stable Patient is at risk for DVT/PE, lower extremity Dopplers show question partially occlusive DVT of the left lower extremity (1 branch of her left davie brennan vein this was felt to be present by compressibility changes) but no acute occlusive DVT identified patient is currently on heparin 7500 units Q8. Undergoing Doppler of her left upper extremity but comments of a partially occlusive distal peroneal DVT would be considered an isolated and distal DVT and may not be amenable to treatment at this time if the patient has a DVT of upper extremity will progress to full therapeutic anticoagulation however if not considering this a distal small DVT we will continue her subcutaneous heparin History of prediabetes acute and likely moderate risk the patient Without history of diabetes or antiglycemic treatment Admitting BSG 200 Weight-based SSI ordered, A1c 6.3 ?Porcelain Gallbladder chronic undetermined risk the patient potential source of infection or arbitrary nidus of bacteremia infection - Noted on prior imaging - DVT prevention is heparin as mentioned above CODE STATUS: DNR/DNI (2) Acute respiratory failure with hypoxia: (3) Chronic venous insufficiency: (4) Depression: (5) Hypokalemia: (6) Hypertension: (7) Hyperlipidemia: (8) Prediabetes: (9) Venous stasis dermatitis: (10) Breast cancer: Admission and Anticipated Discharge Date Admission Date: April 17, 2022 Subjective Patient reports no new symptoms. Review of Systems Review of Systems: All systems reviewed & are unremarkable except as noted in HPI & below Physical Exam Physical Exam: Constitutional: WD/WN, vitals as above Eyes: PERRL, conjunctivae normal, anicteric sclerae ENMT: external ear and nose normal, oropharynx normal Neck: trachea midline, no thyromegaly Respiratory: normal respiratory effort, lungs clear to auscultation Cardiovascular: RRR, no murmur, no edema Gastrointestinal (Abdomen): normal bowel sounds, soft, nontender, no hepatosplenomegaly Psychiatric: A+Ox3, euthymic affect Lymphatic: no cervical or axillary lymphadenopathy Results & Data Results & Data ([facility]) Vital Signs (Past 12 Hours) Vital Signs Temp Pulse Pulse Resp BP Pulse Ox O2 Del Method 04/25/22 22:11 37.3 C 80 18 130/78 92 Room Air 04/25/22 19:02 72 04/25/22 18:40 36.8 C 79 18 121/75 94 Room Air 04/25/22 15:41 36.8 C 73 18 131/75 92 Room Air 04/25/22 12:09 36.5 C 67 18 123/77 96 Room Air PG Care Time/CCT Total # of Minutes Spent Total Time Spent with Patient: Total time spent is greater than 50% in coordination of care (as documented) at patient's floor/unit and/or counseling patient: Coding Level of Care Code 54197 SUB INP/OBS CARE 2/35MIN Diagnoses Cellulitis L03.313 Site of cellulitis: trunk Site of cellulitis of trunk: chest wall Acute respiratory failure with hypoxia J96.01 Chronic venous insufficiency I87.2 Depression F32.9 Hypokalemia E87.6 Hypertension I10 Hyperlipidemia E78.5 Prediabetes R73.03 Venous stasis dermatitis I87.2 Breast cancer C50.919 (1) Cellulitis Site of cellulitis: trunk Site of cellulitis of trunk: chest wall Qualified Code(s): L03.313 - Cellulitis of chest wall
[2022-04-26] MEDS: HEPARIN SOD 5,000 UNIT/0.5 ML VIAL SQ SCH ×2 (06:10→13:04)
[2022-04-26] MEDS: INSULIN ASPART PER UNIT SC SCH ×2 (08:15→13:07)
[2022-04-26] MEDS: ANASTROZOLE 1 MG TAB PO SCH (08:15)
[2022-04-26] MEDS: CITALOPRAM 20 MG TAB PO SCH (08:18)
[2022-04-26] MEDS: ceFAZolin 2000MG 2,000 MG/15 ML SYR IV SCH (08:18)
[2022-04-26] MEDS: MUPIROCIN 2% OINT 22 GM TUBE EXT SCH ×2 (08:19→13:05)
--- NOTE | 2022-04-26 09:35 | Infectious Disease Progress Nt ---
Date of Service April 26, 2022 Assessment & Plan (1) Cellulitis: Plan: #Cellulitis with olecranon collection s/p I+D 04/22 OR culture NGTD #Bacteremia 04/18 with MSSA, CoNS, BHS, Group A likely secondary from cellulitis -presence of extensive cellulitis on admission and leukocytosis- both dramatically improved with antibiotics, raises possibility that MSSA and GAS in blood cultures on admission represent true bacteremia, although typically multiple skin gopi in 1 of 2 sets would argue contaminants. - pt reports frequent picking of skin which was likely portal of entry- exacerbated by chronic dermatitis which likely led to rapid spread of erythema and mixed picture on presentation. Pt advised not to pick skin and to apply moisturizer regularly to skin to avoid fissures. -04/17 TTE with very difficult images but no significant findings. -Patient was on ceftriaxone and vancomycin since 04/18. Changed to dapto 04/20 - 04/17 MRSA nasal screen negative. 04/17 blood culture with group A beta strep, SECOND VP HR ASSESSMENT, not lugdenensis and MSSA in 1 of 2 sets. - 04/19 blood cultures NGTD, 04/20 Bcxs NGTD -pt is on SSRI with reported recent exacerbation depression- will avoid linezolid -only known hardware is L knee- no issues- pt advised to monitor -baseline CPK 04/21/22 47 -pt developed worsening of elbow erythema/pain with fluctuant area- culture of elbow is NGTD (few polys, no org on gram stain) -pt with evidence of olecranon bursitis on CT- s/p I&D 04/22 with hemovac placement, OR cultures No Growth Recommend: Continue with IV antibiotics for treatment of likely true strep and staph aureus bacteremia. However, given skin source, rapid clearance and no evidence of metastatic infection with negative 04/19 Bcxs and 04/20 Bcxs, 2 weeks likely adequate. Staph aureus in blood cx identified as MSSA, antibiotics changed from daptomycin at this time to cefazolin 2 g IV q8 for coverage of MSSA and GAS. Therefore, plan will be to continue cefazolin until 05/03/22 with weekly CBC with diff and CMP. This is likely to be sufficient duration for septic olecranon bursitis after drainage. Oral antibiotics may be option after 05/03 if duration of abx extended, depending on OR cultures. Pt s/p I&D of olecranon collection on 04/22, OR cultures are no growth to date. In general 10 days of therapy for bursitis after debridement should suffice. This duration will be covered by IV Cefazolin for bacteremia. At the conclusion of IV therapy if outpatient orthopedics is concerned for slow response can then add on Cephalexin 500mg po q6 hours for an additional week. Plan: -C/W Cefazolin 2G IV TID through 05/03/22, this can be changed to 6Grams/24 hour gtt if easier for patient -Weekly CBC with diff, CMP while on IV therapy to be monitored by her Primary care team -On follow up with Orthopaedics if there is concern for slow healing of bursa then can continue withCephalexin 500mg po q6 hours for an additional week once IV has completed. Please page ID with any further questions or concerns Sheyla Banegas MD Infectious Diseases [facility], [facility] Admission and Anticipated Discharge Date Admission Date: April 17, 2022 Subjective This patient recommendation is based on a telemedicine consult request which was completed asynchronously through chart review and information provided by the primary physician. The patient was not seen or examined today. The evaluation is consultative in nature and all patient care and treatment decisions can either be accepted or rejected by the patient's primary hospital-based treating physician using their own independent medical judgment for their patient. Time Spent Reviewing Chart: 21 - 30 minutes 24 hours/Over the weekend No acute events Vitals remained stable Last labs 04/23/22 No new micro data Review of System N/A Results & Data ([facility]) Vital Signs (Past 12 Hours) Vital Signs Temp Pulse Pulse Resp BP Pulse Ox O2 Del Method 04/26/22 07:35 36.5 C 75 18 136/76 92 Room Air 04/26/22 03:04 36.7 C 75 18 121/71 93 Room Air 04/26/22 00:38 77 04/25/22 22:11 37.3 C 80 18 130/78 92 Room Air Laboratory Results Laboratory Results - last 48 hr 04/24/22 04/24/22 04/24/22 11:15 16:43 19:59 POC Glucose 151 H 123 H 116 H 04/25/22 04/25/22 04/25/22 07:57 11:44 16:21 POC Glucose 112 H 128 H 94 04/25/22 04/26/22 19:53 07:56 POC Glucose 120 H 98 Medications Administered Current Inpatient Medications Acetaminophen (Acetaminophen 325 Mg Tab) 650 mg PO Q4H PRN PRN Reason: Pain or Fever Stop: 05/17/22 14:48 Albuterol (Albuterol Hfa 8 Gm Inhaler) 2 puffs INH Q6H PRN PRN Reason: wheeze Stop: 05/18/22 04:51 Last Admin: 04/18/22 06:05 Dose: 2 puffs Anastrozole (Anastrozole 1 Mg Tab) 1 mg PO QAM [facility] Stop: 05/18/22 08:59 Last Admin: 04/26/22 08:15 Dose: 1 mg Citalopram Hydrobromide (Citalopram 20 Mg Tab) 10 mg PO QAM [facility] Stop: 05/17/22 14:59 Last Admin: 04/26/22 08:18 Dose: 10 mg Dextrose (Dextrose 50% 50 Ml Syringe) 25 - 50 ml IV UD PRN; Protocol PRN Reason: Hypoglycemia Protocol Stop: 05/17/22 14:48 Glucagon (Glucagon For Inj 1 Mg Vial) 1 mg SQ UD PRN; Protocol PRN Reason: Hypoglycemia Protocol Stop: 05/17/22 14:48 Glucose (Glucose 10 Tab/Tube) 4 - 8 tab PO UD PRN; Protocol PRN Reason: Hypoglycemia Treatment Stop: 05/17/22 14:48 Glucose (Glucose 40% Gel 15 Gm Tube) 15 - 30 gm PO UD PRN; Protocol PRN Reason: Hypoglycemia Protocol Stop: 05/17/22 14:48 Heparin Sodium (Porcine) (Heparin Sod 5,000 Unit/0.5 Ml Vial) 7,500 units SQ Q8 SUR[facility] Stop: 05/17/22 14:48 Last Admin: 04/26/22 06:10 Dose: 7,500 units Cefazolin Sodium (Ancef 2000mg) 2,000 mg in 15 mls @ 3.75 mls/min IV Q8H [facility] Stop: 05/07/22 15:14 Last Admin: 04/26/22 08:18 Dose: 3.75 mls/min Insulin Aspart (Insulin Aspart Per Unit) 0 units SC ACHS [facility] Stop: 05/17/22 14:48 Last Admin: 04/26/22 08:15 Dose: 4 units Miscellaneous (Carbohydrates For Hypoglycemia ) 15 - 30 gm PO UD PRN PRN Reason: Hypoglycemia Protocol Stop: 05/17/22 14:48 Mupirocin (Mupirocin 2% Oint 22 Gm Tube) 1 appln EXT TID [facility] Stop: 05/20/22 22:09 Last Admin: 04/26/22 08:19 Dose: 1 appln (1) Cellulitis Site of cellulitis: trunk Site of cellulitis of trunk: chest wall Qualified Code(s): L03.313 - Cellulitis of chest wall
--- NOTE | 2022-04-26 15:31 | Discharge Summary ---
Date of Service April 26, 2022 Principal Diagnosis olecranon bursitis Discharge Exam Constitutional: WD/WN, vitals as above Eyes: PERRL, conjunctivae normal, anicteric sclerae ENMT: external ear and nose normal, oropharynx normal Neck: trachea midline, no thyromegaly Respiratory: normal respiratory effort, lungs clear to auscultation Cardiovascular: RRR, no murmur, no edema Gastrointestinal (Abdomen): normal bowel sounds, soft, nontender, no hepato splenomegaly Psychiatric: A+Ox3, euthymic affect Lymphatic: no cervical or axillary lymphadenopathy Discharge Data Allergies Allergy/AdvReac Type Severity Reaction Status Date / Time iodine Allergy Mild Rash Verified 02/18/22 19:49 erythromycin base AdvReac Unknown GI UPSET Verified 12/28/21 08:32 gabapentin AdvReac Unknown make sick Verified 12/28/21 08:32 - nausea [id number] Reductase AdvReac DIZZY Verified 04/17/22 10:33 Inhibitor LIGHTHEADEDNESS Consultations 04/17/22 10:03 ED Decision to Admit Stat 04/20/22 11:45 Consult Infectious Diseases Routine 04/21/22 13:13 Consult Orthopedic Surgery Routine Procedures Performed Operation Date: 04/22/22 08:40 Actual Procedures p Incision and Drainage of Left Septic Olecranon Bursitis(Right) - Josesito Jean M.D. Ordered Studies 04/17/22 10:00 CT chest diagnostic wo con Routine 04/17/22 10:57 US venous doppler LE BI Stat 04/18/22 14:16 US venous doppler UE LT Routine 04/21/22 11:29 CT elbow LT wo con Routine Hospital Course (1) Cellulitis: Sepsis, suspect 2/2 cellulitis and now olecranon bursitis Acute serious risk Tachycardic, elevated lactate, elevated Pro-Abdoulaye Patient with states the rash began on her left arm in the antecubital and elbow area and spread over the rest of her body. -Initially improved with antibiotic therapy, worsened on 04/21. Fluid collection felt and confirmed by CT imaging, orthopedic consulted with expectation of incision and drainage on 04/22/2022 Transthoracic echocardiogram shows normal LV size and function EF preserved no evidence of pericardial effusion or valvular vegetations repeat blood cultures are negative to date Bacteremia appreciate infectious disease consultation consider bacteria discovered in blood cultures as a true source now source is confirmed by olecranon bursitis declaring itself and requiring I&D. Will complete 2 weeks course of antibiotics currently switching to daptomycin. Patient has a ultrasound-guided catheter and we will time to 2 weeks if blood cultures obtained on the continues to be negative meaning last dose will be May 03 SP I and D of olceranon bursa. Patient feels better, ID switched to cefazolin. Patient will be discharged on continuous IV cefazolin Patient is agreeable to switching to cefazolin. This will be continued until May 03. will defer to ortho if further antibiotics will be required at her followup. Acute hypoxic respiratory failure, acute and serous riskresolved biofire shows non Covid 19, coronavirus presence remains in airborne precautions at this time Improved with supplemental oxygen, DuoNeb room air as of 04/19/2022 Hypokalemia acute and self limited repleted Chronic and stable history of breast cancer ductal carcinoma left, endometrial cancer, s/p hysterectomy Continue anastrozole Anxiety/depression chronic continue medical management this is chronic and stable as the patient stopped her medication prior to admission and depression worsened Continue citalopram daily Chronic venous insufficiency, chronic poorly controlled chronic and stable Patient is at risk for DVT/PE, lower extremity Dopplers show question partially occlusive DVT of the left lower extremity (1 branch of her left peroneal vein this was felt to be present by compressibility changes) but no acute occlusive DVT identified patient is currently on heparin 7500 units Q8. Undergoing Doppler of her left upper extremity but comments of a partially occlusive distal peroneal DVT would be considered an isolated and distal DVT and may not be amenable to treatment at this time if the patient has a DVT of upper extremity will progress to full therapeutic anticoagulation however if not considering this a distal small DVT we continued her subcutaneous heparin while she was here. History of prediabetes acute and likely moderate risk the patient Without history of diabetes or antiglycemic treatment Admitting BSG 200 Weight-based SSI ordered, A1c 6.3 ?Porcelain Gallbladder chronic undetermined risk the patient potential source of infection or arbitrary nidus of bacteremia infection - Noted on prior imaging - DVT prevention is heparin as mentioned above CODE STATUS: DNR/DNI (2) Acute respiratory failure with hypoxia: (3) Chronic venous insufficiency: (4) Depression: (5) Hypokalemia: (6) Hypertension: (7) Hyperlipidemia: (8) Prediabetes: (9) Venous stasis dermatitis: (10) Breast cancer: Total Time Total Time Spent Total Time Spent (In Minutes): 32 Discharge Plan Discharge Items Patient Disposition: Home - Home Health Services Reason For Visit: DIZZINESS, RASH, HYPOXIA Discharge Diagnosis: olecranon bursitis Activity: Resume your previous activity Non-emergency contact: Primary Care Provider Call non-emergency contact if: you have any medication questions Follow-up/Referrals: Rico Goetz MD [Primary Care Provider] - 05/04/22 1:30 pm (Appointment with Danuta Portillo PA-C) Josesito Jean M.D. [Physician] - Diet: Carb Consistent or DM2 Addtl Attending Provider Instructions: Please continue antibiotics until you complete them next Tuesday. 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 Jean on 04/22/22 for incision and drainage of your left elbow septic bursitis. The drain has since been removed. You have stitches in place that will need to be removed 10-14 days post-operatively. You may continue to wash the area gently with soap/water, make sure to keep the area clean and dry. Rinse gently with water but do not completely submerge. After washing, cover the sutured area with adaptic (non-adhesive) dressing, gauze and MIKE bandages. Follow-up with Dr. Jean in orthopedic surgery clinic 10-14 days post- operatively. Please call [facility] [place] at [phone] to make an appointment. Pending Studies at Discharge: No Stand-Alone Forms: My [facility], Smoking Cessation Medications and DC Order Prescriptions: New mupirocin 2 % Ointment 1 applic EXT TID 7 Days Qty: 15 0RF cefazolin 2 gram recon soln 6 g continuous IV infusion Q8H 7 Days Qty: 25 0RF Continued calcium carbonate 600 mg calcium (1,500 mg) tablet 600 mg PO DAILY multivitamin Tablet 1 tab PO DAILY furosemide [Lasix] 20 mg tablet 20 mg PO DAILY Qty: 30 11RF zinc gluconate 30 mg tablet 30 mg PO DAILY citalopram 10 mg tablet 10 mg PO QAM Qty: 90 3RF anastrozole 1 mg tablet 1 mg PO QAM potassium gluconate 595 mg (99 mg) Tablet Extended Release 99 mg PO QID Discharge Orders: Discharge Order (Routine); Ordered 04/26/22 Ordered By: Piyush Choi/Other Patient Handouts: Prediabetes, 5 Steps for Eating Healthier Admission Data Admit Date/Time: 04/17/22 10:51 Attending Provider: Piyush Araiza Admit Provider: Sindy Sheikh Primary Care Provider: Rico Goetz V. Other Providers: Jerald Terrazas ; Kayla Toure ; Malcolm Cortez ; Wandy Sparks ; Rocky Kwan ; Annmarie Coelho ; Sheyla Banegas ; Paris Maxwell ; Janelle Pacheco ; Mary Rasmussen ; Ashwin Sosa Other Interventions: Discharge Summary Assessment (RN) Last Done: 04/26/22 15:30 Coding Level of Care Code HOSP INP/OBS DISCH >30 MIN Diagnoses Cellulitis L03.313 Site of cellulitis: trunk Site of cellulitis of trunk: chest wall Acute respiratory failure with hypoxia J96.01 Chronic venous insufficiency I87.2 Depression F32.9 Hypokalemia E87.6 Hypertension I10 Hyperlipidemia E78.5 Prediabetes R73.03 Venous stasis dermatitis I87.2 Breast cancer C50.919
== END 2022-04-26 16:25 | disposition home health service (06) | DRG 853 ==
LOC: ED 08:09 → SUATTDRO 10:51 → EDINP 13:54 → 2N 14:50

== ENCOUNTER 2023-01-02 12:03 | Inpatient (IN) ==
--- NOTE | 2023-01-02 12:58 | Emergency Department Note ---
Impression & Plan Cellulitis of arm, left, Cellulitis of back, Cellulitis of chest wall, Severe sepsis ED Provider Note Name: RENE AVILA Age: 82 Sex: Female Arrives Via: Walk-In Informant: Patient, daughter ED Provider: Christian Rivas MD Chief Complaint: Redness of the left arm Impression: As per impressions above Medical Decision Makin-year-old female with extensive history of infectious issues and ongoing chronic ulcers of legs and arms. Patient arrives for worsening redness of the left arm. On examination she has a cellulitis of the entirety of the left arm extending down over the back and up the left chest. There is no crepitus or evidence of necrotizing fasciitis at this time. Laboratory work-up is notable for elevated lactic acidosis and an elevated procalcitonin. She was given 1.5 L normal saline bolus for fluid resuscitation rather than 30 mL/kg fluid as she is significantly fluid overloaded already. Troponin was noted to be elevated as well. Fortunately EKG does not show any ischemia. Patient is without any chest pain. I suspect elevated troponin is more secondary NSTEMI due to her severe sepsis. Patient did have an episode of hypotension which responded quickly to fluids. She does not require pressors at this time. She was reevaluated multiple times throughout her stay and was stable otherwise. Hospitalist in to evaluate further Triage/Nursing Notes reviewed by Me External Chart Review by me: Reviewed previous hospitalization records including recent hospitalization last year for cellulitis during which she was on daptomycin and cephalosporins Differential: Cellulitis, allergic reaction, dermatitis, necrotizing fasciitis, severe sepsis/septic shock, scalded skin, allergic reaction amongst many other pathologies considered Vital Signs: reviewed and remarkable for no significant abnormalities Interventions: Normal saline bolus 1.5 L IV, cefepime IV, daptomycin IV Labs:ED labs Reviewed by me and remarkable for elevated lactate, elevated procalcitonin, mild elevated creatinine from baseline Imaging: X ray results are stated below per my interpretation: Chest: 1 view: No infiltrate, no effusion, enlarged cardiac border. EKG:As per my interpretation. Indication sepsis. Sinus rhythm at 73 bpm with PAC noted. There is no ischemia. QTc 403. When compared to EKG from 06/15/2022 rate has decreased significantly. Cardiac/Tele Monitoring: Cardiac Monitoring: An Order was placed for continuous cardiac monitoring. The monitor shows a rate of 70 with a normal sinus rhythm. Consults:Dr Bita BARBER Hospitalist Plan: Disposition:Hospitalization. Condition: Good History of Present Illness: 82-year-old female arrives for evaluation of left arm redness. Patient notes 24 to 48 hours increasing left arm redness. Is now spreading over her back. Associate with mild chills. Denies any fevers, nausea, vomiting, headaches, chest pain, shortness of breath, abdominal pain, back pain, leg pain or other concerning signs or symptoms. She notes a long history of infectious issues in her skin. She has had regular wound visits due to these infections in her legs. She notes her legs have been weeping a bit more than usual. She has sores over much of her body of unknown etiology. She denies a history of MRSA. She admits she was admitted to what she believes was a year ago and had an allergic reaction to an antibiotic but is unsure what the antibiotic was. Past Medical History:See Below Home Medications:See Below Allergies:See Below Vitals:Blood Pressure: 143/63, Pulse 98, RR 18, T 36.7C, O2 98% on RA Physical Exam: GENERAL: Patient is unwell appearing and in mild distress. RESPIRATORY: No dyspnea. Clear to auscultation and equal bilaterally. CARDIOVASCULAR: Regular rate and rhythm.No murmur appreciated. GASTROINTESTINAL: Abdomen soft, non-tender, no peritonitis. BACK: No midline tenderness, no CVA tenderness EXTREMITIES: Normal motion all extremities, no cyanosis, 4+ pitting edema bilateral lower legs with weeping NEUROLOGIC: Alert and oriented. No focal neurologic deficits appreciated SKIN: Diffuse cellulitis of entire left arm extending onto back and down flank on the left. Multiple scabs over face, arms, legs., no jaundice, no diaphoresis. PSYCH: Appropriate GCS: 15 ED Course: Times/Reassessments: Multiple repeat evaluations. Patient was noted to have a single episode of hypotension. Further fluids given and repeat blood pressure was normalized. Christian Rivas MD Past Med/Surg History Medical History (Updated 01/02/23 @ 19:28 by Christian Rivas MD) Cellulitis Septic olecranon bursitis Acute respiratory failure with hypoxia Acute hyponatremia Pneumonia Hypoxia Extreme obesity Rash Chronic dermatitis under surveillance by PCP (improved with abx) Port-A-Cath in place Dermatitis of lower extremity Infiltrating ductal carcinoma of central portion of left breast in female Pancytopenia Breast cancer S/P CHEMO COMPLETED 03/2018- left breast RECENTLY RELEASED FROM ONCOLOGIST/ANNUAL VISITS NOW History of uterine cancer REMOTE HX, SX INTERVENTION/ ? HX FEW RADIATION TX'S, PT NOT SURE Anxiety MILD Hypertension Endometrial adenocarcinoma (07/25/14) "Endometrium, adenocarcinoma, grade 1, no LVSI, FIGO IB status post TAHBSO and Pelvic LND 08/29/14 Status post completion of radiation therapy 11/06/2014 received 2100 cGy utilizing HDR therapy " On 11/12/14 09:16 Jacy Teixeira wrote "Endometrium, adenocarcinoma, grade 1, no LVSI, FIGO IB status post TAHBSO and Pelvic LND 08/29/14 Status post completion of radiation therapy 11/06/2014 received 2100 cGy utilizing HDR therapy " On 11/12/14 08:56 Jacy Teixeira wrote "Endometrium, adenocarcinoma, grade 1, no LVSI, FIGO IB status post TAHBSO and Pelvic LND 08/29/14 " On 10/10/14 11:40 Veeral Jose wrote "Endometrium, adenocarcinoma, grade 1, no LVSI, FIGO IB status post TAHBSO and Pelvic LND" Surgical History H/O elbow surgery april 2022, bacterial infection History of removal of Port-a-Cath (09/02/21) Removal of Access Port Right(Right) - Vic Wheat, , FACS H/O oral surgery H/O mastectomy LEFT History of ankle surgery LEFT/NO HARDWARE History of total knee replacement LEFT History of bowel resection R/T BENIGN TUMOR History of colonoscopy History of bilateral tubal ligation History of left breast biopsy History of total abdominal hysterectomy and bilateral salpingo-oophorectomy Family History Sister Family history of cancer Daughter Hx of CABG Coronary heart disease Myocardial infarction Father COPD (chronic obstructive pulmonary disease) Grandfather (Maternal) Colorectal cancer Denies family history of Ovarian cancer Prostate cancer Breast cancer Social History Smoking Status: Never smoker Second Hand Exposure: No; Do You Dip or Chew Tobacco: No; Hx Alcohol Use: No Hx Substance Use: No Preferred Language: Setswana Communication Ability: Effective Visual Impairment: No Limitations Hearing Ability: Normal Immigration Associate Required: No Beliefs That Will Affect Care: None marital status: Single Current Living Situation: Family Current Living Situation Comment: daughter and granddaughter current occupational status: retired Feels Safe at Home: Yes Childhood Exposure to Second-Hand Smoke: No Dental Care, Regularly: No Physical Activity Frequency: 1-2 Times per Week Seatbelt Use: always Sunscreen Use: Yes Assistive Devices: Cane and Walker Allergies Allergies Allergy/AdvReac Type Severity Reaction Status Date / Time erythromycin base AdvReac Unknown GI UPSET Verified 01/02/23 14:28 gabapentin AdvReac Unknown make sick Verified 01/02/23 14:28 - nausea Febcsek-OZR-EoP Reductase AdvReac DIZZY Verified 01/02/23 14:28 Inhibitor LIGHTHEADEDNESS Home Meds Home Medications Medication Instructions Recorded Confirmed anastrozole 1 mg tablet 1 mg PO QAM 01/23/19 01/02/23 multivitamin 1 tab PO DAILY 11/06/21 01/02/23 potassium gluconate 595 mg (99 mg) 99 mg PO DAILY 04/28/22 01/02/23 tablet,extended release calcium carbonate 600 mg-vitamin 1 tab PO QAM 01/02/23 01/02/23 D3 20 mcg (800 unit) chewable tablet (Caltrate 600 plus D) furosemide 20 mg tablet (Lasix) 20 mg PO QAM 01/02/23 01/02/23 Results & Data (ED) Vital Signs Vital Signs - 24 hr 01/02/23 12:32 01/02/23 12:55 01/02/23 12:55 Temperature 36.7 C Temperature Source Oral Pulse Rate 98 H Pulse Rate [Bilateral] 79 Respiratory Rate 18 18 Respiratory Effort / Characteristics Non-Labored Respiratory Depth Normal Blood Pressure 143/63 H Blood Pressure [Right Arm] 95/57 L Blood Pressure Mean 89 Blood Pressure Mean [Right Arm] 69 Pulse Oximetry 95 94 Oxygen Delivery Method Room Air Room Air Sepsis Recent Fever Within 48 Hours No Sepsis New/Unexplained Change in Mental Status No Sepsis Action Taken by Nursing No Action Required 01/02/23 14:04 Temperature Temperature Source Pulse Rate Pulse Rate [Bilateral] 74 Respiratory Rate 18 Respiratory Effort / Characteristics Respiratory Depth Blood Pressure Blood Pressure [Right Arm] 151/74 H Blood Pressure Mean Blood Pressure Mean [Right Arm] 99 Pulse Oximetry 98 Oxygen Delivery Method Sepsis Recent Fever Within 48 Hours Sepsis New/Unexplained Change in Mental Status Sepsis Action Taken by Nursing Laboratory Data 01/02/23 13:28 01/02/23 13:28 Lab Results 01/02/23 Range/Units 13:28 WBC 11.54 H (4.8-10.8) K/ul RBC 3.99 L (4.20-5.40) M/uL Hgb 12.4 (12.0-16.0) g/dl Hct 38.3 (37.0-47.0) % MCV 96.0 (80.0-100.0) fL MCH 31.1 (25.0-34.0) pg MCHC 32.4 (32.0-36.0) g/dL RDW Std Deviation 48.8 H (36.4-46.3) fL RDW Coeff of Rosalinda 13.6 (11.5-14.5) % Plt Count 112 L (130-400) K/uL MPV 9.4 (9.4-12.4) fL Immature Gran % (Auto) 0.5 % Neut % (Auto) 88.9 % Lymph % (Auto) 6.6 % Pratt % (Auto) 2.7 % Eos % (Auto) 1.0 % Baso % (Auto) 0.3 % Neut # (Auto) 10.25 H (1.40-6.50) K/uL Lymph # (Auto) 0.76 L (1.20-3.40) K/uL Pratt # (Auto) 0.31 (0.11-0.59) K/uL Eos # (Auto) 0.12 (0.00-0.50) K/uL Baso # (Auto) 0.04 (0.00-0.20) K/uL Immature Gran # (Auto) 0.06 (0.01-0.20) K/uL Sodium 135 L (136-145) mmol/L Potassium 3.3 L (3.5-5.1) mmol/L Chloride 101 (98-107) mmol/L Carbon Dioxide 29 (21-32) mmol/L Anion Gap 5 (3-11) BUN 25 H (6-23) mg/dl Creatinine 1.37 H (0.6-1.2) mg/dl Est Cr Clr Drug Dosing 44.1 ml/min Est GFR ( Amer) 41.8 ml/min Est GFR (Non-Af Amer) 36.1 ml/min BUN/Creatinine Ratio 18.2 (10-20) Glucose 152 H (70-99(Fasting)) mg/dl Lactate 3.0 H* (0.4-2.0) mmol/L Calcium 8.9 (8.6-10.3) mg/dl Magnesium 1.6 L (1.7-2.4) mg/dl Total Bilirubin 0.6 (0.2-1.0) mg/dl Direct Bilirubin 0.1 (0-0.2) mg/dl AST 17 (13-39) U/L ALT 8 (7-52) U/L Alkaline Phosphatase 92 (34-104) U/L Troponin I High Sens 71.5 H* (0-14) pg/ml Total Protein 6.7 (6.0-8.3) gm/dl Albumin 2.9 L (3.4-5.0) gm/dl Procalcitonin 6.28 H (0-0.5) ng/ml Administered Medications Magnesium Sulfate/Dextrose (Magnesium Sulfate / D5w) 1 gm in 100 mls @ 50 mls/hr IV Q2H SURINDER Stop: 01/02/23 23:59 Last Admin: 01/02/23 18:17 Dose: 50 mls/hr Documented By: QGV Discontinued Medications Sodium Chloride (Nss) 500 mls @ 999 mls/hr IV .Q31M [facility] Stop: 01/02/23 13:30 Last Infusion: 01/02/23 15:43 Dose: Infused Documented By: Admin: 01/02/23 13:58 Dose: 999 mls/hr Documented By: MANISH Cefepime HCl (Maxipime) 2,000 mg in 20 mls @ 5 mls/min IV NOW STA; Protocol Stop: 01/02/23 14:05 Last Admin: 01/02/23 15:30 Dose: 5 mls/min Documented By: MANISH Daptomycin 500 mg/ Syringe 10 mls @ 5 mls/min IV NOW STA; Protocol Stop: 01/02/23 14:11 Last Admin: 01/02/23 15:29 Dose: 5 mls/min Documented By: MANISH Sodium Chloride (Nss) 1,000 mls @ 999 mls/hr IV .Q1H1M ONE Stop: 01/02/23 15:14 Last Infusion: 01/02/23 15:43 Dose: Infused Documented By: Admin: 01/02/23 14:19 Dose: 999 mls/hr Documented By: MANISH Potassium Chloride (Potassium Chloride Crtab 20 Meq Tabcr) 40 meq PO NOW STA Stop: 01/02/23 14:41 Last Admin: 01/02/23 16:00 Dose: 40 meq Documented By: MANISH Imaging Data Radiologist's Impression: Chest X-Ray 01/02/23 12:55 XR chest 1V portable CLINICAL HISTORY: Sepsis TECHNIQUE: Single frontal radiograph of the chest was obtained. Comparison: Comparison is made to chest radiograph 02/14/2023 FINDINGS: No lines and tubes are seen. Calcified aortic knob is seen. The lungs are clear. No evidence of pleural effusion or pneumothorax. IMPRESSION: No acute abnormalities and in particular no radiographic evidence of pneumonia. ACT 112: Negative or not required by law. Electronically signed by: Rodney Mcdaniels M.D. 01/02/2023 1:50 PM Discharge Plan Visit Data Chief Complaint: Infection Stated Complaint: LEFT ARM WOUND INFECTION, SWELLING ED Provider: Christian Rivas Discharge Problem: Cellulitis of arm, left, Cellulitis of back, Cellulitis of chest wall, Severe sepsis Patient Disposition: Admitted As Inpatient Discharge Instructions Interventions: ED Discharge Assessment Last Done: 01/02/23 17:58
[2023-01-02] MEDS ORDERED: SODIUM CHLORIDE 0.9% 500 ML IV SCH (13:00)
[2023-01-02 13:44] LABS: Basophils # (auto) 0.04 K/uL (0.00-0.20); Basophils % (auto) 0.3 %; Eosinophils # (auto) 0.12 K/uL (0.00-0.50); Hematocrit (blood only) 38.3 % (37.0-47.0); Hemoglobin 12.4 g/dl (12.0-16.0); Immature Granulocytes # (auto) 0.06 K/uL (0.01-0.20); Immature Granulocytes % (auto) 0.5 %; Lymphocytes # (auto) 0.76 K/uL (1.20-3.40); Lymphocytes % (auto) 6.6 %; Mean Corpuscular Hemoglobin 31.1 pg (25.0-34.0); Mean Corpuscular Hgb Conc 32.4 g/dL (32.0-36.0); Mean Platelet Volume 9.4 fL (9.4-12.4); Monocytes # (auto) 0.31 K/uL (0.11-0.59); Monocytes % (auto) 2.7 %; Neutrophils # (auto) 10.25 K/uL (1.40-6.50); Neutrophils % (auto) 88.9 %; Platelet Count 112 K/uL (130-400); RDW Coefficient of Variation 13.6 % (11.5-14.5); RDW Standard Deviation 48.8 fL (36.4-46.3); Red Blood Count 3.99 M/uL (4.20-5.40); White Blood Count 11.54 K/ul (4.8-10.8)
--- NOTE | 2023-01-02 13:52 | XRay Report ---
XR chest 1V portable CLINICAL HISTORY: Sepsis TECHNIQUE: Single frontal radiograph of the chest was obtained. Comparison: Comparison is made to chest radiograph 02/14/2023 FINDINGS: No lines and tubes are seen. Calcified aortic knob is seen. The lungs are clear. No evidence of pleur al effusion or pneumothorax. IMPRESSION: No acute abnormalities and in particular no radiographic evidence of pneumonia. ACT 112: Negative or not required by law. Electronically signed by: Rodney Mcdaniels M.D. 01/02/2023 1:50 PM
[2023-01-02 13:59] LABS: Albumin Level 2.9 gm/dl (3.4-5.0); BUN Creatinine Ratio 18.2 (10-20); Bilirubin Direct 0.1 mg/dl (0-0.2); Bilirubin,Total 0.6 mg/dl (0.2-1.0); Calcium 8.9 mg/dl (8.6-10.3); Creatinine Clr Calc Pharmacy 44.1 ml/min; Est GFR (African American) 41.8 ml/min; Est GFR (Non-African American) 36.1 ml/min; Magnesium 1.6 mg/dl (1.7-2.4); Potassium 3.3 mmol/L (3.5-5.1); Total Protein 6.7 gm/dl (6.0-8.3)
[2023-01-02] MEDS ORDERED: CEFEPIME 2,000 MG/20 ML VIAL IV STA (14:02)
[2023-01-02] MEDS ORDERED: DAPTOmycin 500 MG in SYRINGE 0 ML IV STA (14:10)
[2023-01-02 14:13] LABS: Troponin I High Sensitivity 71.5 pg/ml (0-14)
[2023-01-02] MEDS ORDERED: SODIUM CHLORIDE 0.9% 1,000 ML IV ONE (14:14)
--- NOTE | 2023-01-02 14:33 | History & Physical Report ---
Date of Service January 02, 2023 Assessment & Plan (1) Cellulitis: Plan: See pictures in H&P Daptomycin + cefepime given extensive area Follow up blood cultures Notably developed septic bursitis from similar presentation in March - no pain or fluctuance here on admission Patient does not meet SIRS criteria and is not septic appearing (2) Electrolyte abnormality: Plan: Replace magnesium and potassium as needed, repeat with AM labs (3) Elevated troponin: Plan: Appears stable. Repeat in AM. This is not ACS given lack of chest pain / shortness of breath and low level. (4) Morbid obesity: (5) Status post mastectomy: Plan: Stop anastrazole - planning on coming off this coming week Plan VTE Prophylaxis - Lovenox 40mg SQ BID Diet - regular Disposition - admit to med/tele Admission and Anticipated Discharge Date Admission Date: January 02, 2023 History of Present Illness Chief Complaint: Skin erythema and swelling Primary Care Provider: Rico Goetz MD Barb Bailon is an 82 year old female who presents to the ER with left arm/back erythema and swelling. She reports having flea bites and blisters approximately 2 weeks ago. She picks at the blisters causing multiple open lesions. 2 days ago she started noticing a rapidly increasing erythema with swelling on her left arm. No objective fevers but she is having chills. She has had lymph nodes removed from this arm and had cellulitis with eventual olecranon bursitis requiring hospitalization and IV Cefazolin in March 2022. She reports she will be following up with her oncologist next week to discuss coming off anastrazole since she has been on it for 5 years. Allergies Allergy/AdvReac Type Severity Reaction Status Date / Time erythromycin base AdvReac Unknown GI UPSET Verified 01/02/23 14:28 gabapentin AdvReac Unknown make sick Verified 01/02/23 14:28 - nausea Gtzqeua-DPD-ZuS Reductase AdvReac DIZZY Verified 01/02/23 14:28 Inhibitor LIGHTHEADEDNESS Home Medications Medication Instructions Recorded Confirmed Type anastrozole 1 mg tablet 1 mg PO QAM 01/23/19 01/02/23 History multivitamin 1 tab PO DAILY 11/06/21 01/02/23 History potassium gluconate 595 mg (99 mg) 99 mg PO DAILY 04/28/22 01/02/23 History tablet,extended release calcium carbonate 600 mg-vitamin 1 tab PO QAM 01/02/23 01/02/23 History D3 20 mcg (800 unit) chewable tablet (Caltrate 600 plus D) furosemide 20 mg tablet (Lasix) 20 mg PO QAM 01/02/23 01/02/23 History Past Med/Surg History Medical History (Updated 01/03/23 @ 06:12 by Simón Sunshine MD) Cellulitis Septic olecranon bursitis Acute respiratory failure with hypoxia Acute hyponatremia Pneumonia Hypoxia Extreme obesity Rash Chronic dermatitis under surveillance by PCP (improved with abx) Port-A-Cath in place Dermatitis of lower extremity Infiltrating ductal carcinoma of central portion of left breast in female Pancytopenia Breast cancer S/P CHEMO COMPLETED 03/2018- left breast RECENTLY RELEASED FROM ONCOLOGIST/ANNUAL VISITS NOW History of uterine cancer REMOTE HX, SX INTERVENTION/ ? HX FEW RADIATION TX'S, PT NOT SURE Anxiety MILD Hypertension Endometrial adenocarcinoma (07/25/14) "Endometrium, adenocarcinoma, grade 1, no LVSI, FIGO IB status post TAHBSO and Pelvic LND 08/29/14 Status post completion of radiation therapy 11/06/2014 received 2100 cGy utilizing HDR therapy " On 11/12/14 09:16 Jacy Teixeira wrote "Endometrium, adenocarcinoma, grade 1, no LVSI, FIGO IB status post TAHBSO and Pelvic LND 08/29/14 Status post completion of radiation therapy 11/06/2014 received 2100 cGy utilizing HDR therapy " On 11/12/14 08:56 Jacy Teixeira wrote "Endometrium, adenocarcinoma, grade 1, no LVSI, FIGO IB status post TAHBSO and Pelvic LND 08/29/14 " On 10/10/14 11:40 Veeral Garcia wrote "Endometrium, adenocarcinoma, grade 1, no LVSI, FIGO IB status post TAHBSO and Pelvic LND" Surgical History H/O elbow surgery april 2022, bacterial infection History of removal of Port-a-Cath (09/02/21) Removal of Access Port Right(Right) - Vic Wheat DO, FACS H/O oral surgery H/O mastectomy LEFT History of ankle surgery LEFT/NO HARDWARE History of total knee replacement LEFT History of bowel resection R/T BENIGN TUMOR History of colonoscopy History of bilateral tubal ligation History of left breast biopsy History of total abdominal hysterectomy and bilateral salpingo-oophorectomy Family History Sister Family history of cancer Daughter Hx of CABG Coronary heart disease Myocardial infarction Father COPD (chronic obstructive pulmonary disease) Grandfather (Maternal) Colorectal cancer Denies family history of Ovarian cancer Prostate cancer Breast cancer Social History Smoking Status: Never smoker Second Hand Exposure: No; Do You Dip or Chew Tobacco: No; Hx Alcohol Use: No Hx Substance Use: No Preferred Language: Latvian Communication Ability: Effective Visual Impairment: No Limitations Hearing Ability: Normal 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 Beliefs That Will Affect Care: None marital status: Single Current Living Situation: Family Current Living Situation Comment: Lives with daughter Matilde current occupational status: retired Other Information That Helps Us Care for You: No Feels Safe at Home: Yes Safety Concerns: Feels Safe At This Time Childhood Exposure to Second-Hand Smoke: No Dental Care, Regularly: No Physical Activity Frequency: 1-2 Times per Week Seatbelt Use: always Sunscreen Use: Yes Assistive Devices: Cane, Glasses and Walker Review of Systems 2 Review of Systems: All systems reviewed & are unremarkable except as noted in HPI & below Physical Exam 2 Constitutional: well developed; + not well nourished and no acute distress Eyes: + anicteric sclerae; normal pupil size ENMT: external ear and nose normal, oropharynx normal Respiratory: normal respiratory effort, lungs clear to auscultation Cardiovascular: Rate/Rhythm: regular rate and regular rhythm Heart Sounds: no murmur Extremities: normal capillary refill and + pedal edema; no calf tenderness Gastrointestinal (Abdomen): normal bowel sounds, soft, nontender, no hepatosplenomegaly Skin: Extensive erythema, warmth and swelling of left arm (does not involve hand), back, anterior chest pain and right breast with multiple eschars as seen in pictures above Neurologic: moves all extremities and awake; not confused Psychiatric: A+Ox3, euthymic affect Results & Data Results & Data Vital Signs (Past 12 Hours) Vital Signs Temp Pulse Pulse Resp BP BP Pulse Ox 01/02/23 14:04 74 18 151/74 H 98 01/02/23 12:55 79 18 95/57 L 94 01/02/23 12:55 95 01/02/23 12:32 36.7 C 98 H 18 143/63 H O2 Del Method 01/02/23 14:04 01/02/23 12:55 Room Air 01/02/23 12:55 Room Air 01/02/23 12:32 Laboratory Results Abnormal lab results 01/02/23 Range/Units 13:28 WBC 11.54 H (4.8-10.8) K/ul RBC 3.99 L (4.20-5.40) M/uL RDW Std Deviation 48.8 H (36.4-46.3) fL Plt Count 112 L (130-400) K/uL Neut # (Auto) 10.25 H (1.40-6.50) K/uL Lymph # (Auto) 0.76 L (1.20-3.40) K/uL Sodium 135 L (136-145) mmol/L Potassium 3.3 L (3.5-5.1) mmol/L BUN 25 H (6-23) mg/dl Creatinine 1.37 H (0.6-1.2) mg/dl Glucose 152 H (70-99(Fasting)) mg/dl Lactate 3.0 H* (0.4-2.0) mmol/L Magnesium 1.6 L (1.7-2.4) mg/dl Troponin I High Sens 71.5 H* (0-14) pg/ml Albumin 2.9 L (3.4-5.0) gm/dl Procalcitonin 6.28 H (0-0.5) ng/ml Diagnostic Findings XR chest 1V portable CLINICAL HISTORY: Sepsis TECHNIQUE: Single frontal radiograph of the chest was obtained. Comparison: Comparison is made to chest radiograph 02/14/2023 FINDINGS: No lines and tubes are seen. Calcified aortic knob is seen. The lungs are clear. No evidence of pleural effusion or pneumothorax. IMPRESSION: No acute abnormalities and in particular no radiographic evidence of pneumonia. Medications Administered ER Medications Given: Normal saline 1500ml bolus Cefepime 2000mg IV Daptomycin 500mg IV ECG Rate (beats per minute): 73 Rhythm: normal sinus Findings: + PAC Comparison ECG Date: from (Apr 17, 2022) Change: no significant change Code Status & VTE Plan Code Status DNR/DNI VTE Prophylaxis Plan VTE Prophylaxis will be ordered: Yes PG Care Time/CCT Total # of Minutes Spent Total Time Spent with Patient: Total time spent is greater than 50% in coordination of care (as documented) at patient's floor/unit and/or counseling patient: Coding Level of Care Code 42710 INT INP/OBS CARE 2/55MIN Diagnoses Cellulitis L03.313 Site of cellulitis: trunk Site of cellulitis of trunk: chest wall Electrolyte abnormality E87.8 Elevated troponin R79.89 Morbid obesity E66.01 Status post mastectomy Z90.10 (1) Cellulitis Site of cellulitis: trunk Site of cellulitis of trunk: chest wall Qualified Code(s): L03.313 - Cellulitis of chest wall
[2023-01-02] MEDS ORDERED: POTASSIUM CHLORIDE CRTAB 20 MEQ TABCR PO STA (14:40)
[2023-01-02 17:06] LABS: Appearance Urine Cloudy (Clear); Bacteria Urine Automated 1+ (Negative); Bilirubin Urine Negative (Negative); Blood Urine 2+ (Negative); Color Urine Yellow; Epithelial Cell Urine Auto >30 /lpf (0-5); Glucose Urine UA Negative (Negative); Ketones Urine Negative (Negative); Leukocyte Esterase Urine 2+ (Negative); Nitrite Urine Positive (Negative); Protein Urine 1+ (Negative); Specific Gravity Urine 1.017 (1.000-1.030); Urobilinogen Urine Negative (Negative); WBC Urine Automated >30 /hpf (0-5); pH Urine 5.5 (4.5-7.5)
[2023-01-02 17:44] LABS: RBC Urine Automated 0-4 /hpf (0-4)
[2023-01-02] MEDS ORDERED: ACETAMINOPHEN 325 MG TAB PO PRN (17:57)
[2023-01-02] MEDS: MAGNESIUM SULFATE / D5W 1 GM/100 ML BAG IV SCH ×3 (18:17→22:36)
--- NOTE | 2023-01-02 22:40 | Electrocardiogram Report ---
Test Reason : Blood Pressure : / mmHG Vent. Rate : 073 BPM Atrial Rate : 073 BPM P-R Int : 134 ms QRS Dur : 082 ms QT Int : 366 ms P-R-T Axes : 036 041 040 degrees QTc Int : 403 ms Sinus rhythm with Premature atrial complexes Septal infarct , age undetermined Abnormal ECG When compared with ECG of 17-APR-2022 08:16, Vent. rate has decreased BY 51 BPM Septal infarct is now Present Confirmed by Maxim Chisholm ([id number]) on 01/02/2023 10:39:45 PM Referred By: REFERRED SELF Confirmed By:Maxim Chisholm
[2023-01-03] MEDS: CEFEPIME 2,000 MG in SYRINGE 0 ML IV SCH ×2 (04:15→15:24)
[2023-01-03 05:23] LABS: Basophils # (auto) 0.02 K/uL (0.00-0.20); Basophils % (auto) 0.2 %; Eosinophils # (auto) 0.24 K/uL (0.00-0.50); Eosinophils % (auto) 2.6 %; Hematocrit (blood only) 36.1 % (37.0-47.0); Hemoglobin 11.8 g/dl (12.0-16.0); Immature Granulocytes % (auto) 1.1 %; Lymphocytes # (auto) 0.78 K/uL (1.20-3.40); Lymphocytes % (auto) 8.4 %; Mean Corpuscular Hemoglobin 31.3 pg (25.0-34.0); Mean Corpuscular Hgb Conc 32.7 g/dL (32.0-36.0); Mean Corpuscular Volume 95.8 fL (80.0-100.0); Mean Platelet Volume 9.6 fL (9.4-12.4); Monocytes # (auto) 0.42 K/uL (0.11-0.59); Monocytes % (auto) 4.5 %; Neutrophils % (auto) 83.2 %; Platelet Count 114 K/uL (130-400); RDW Coefficient of Variation 13.5 % (11.5-14.5); RDW Standard Deviation 47.8 fL (36.4-46.3); Red Blood Count 3.77 M/uL (4.20-5.40); White Blood Count 9.26 K/ul (4.8-10.8)
[2023-01-03 05:32] LABS: BUN Creatinine Ratio 19.6 (10-20); Calcium 8.4 mg/dl (8.6-10.3); Creatinine Clr Calc Pharmacy 56.5 ml/min; Est GFR (African American) 53.4 ml/min; Potassium 3.5 mmol/L (3.5-5.1)
[2023-01-03 05:42] LABS: Troponin I High Sensitivity 45.6 pg/ml (0-14)
--- NOTE | 2023-01-03 07:37 | Hospitalist Progress Note ---
Date of Service January 03, 2023 Assessment & Plan (1) Cellulitis: Plan: See pictures in H&P Daptomycin + cefepime given extensive area Follow up blood cultures Notably developed septic bursitis from similar presentation in March - no pain or fluctuance here on admission Patient does not meet SIRS criteria and is not septic appearing, however lactic was 3.0--> 1.6 on repeat 01/03 Review of admission labs w/ WBC 11.5k, HR upper 90s (now recorded as 102bpm this morning), lactic 3.0, and Procal 6.28. Concerns for sepsis, ? to infection to elbow given hx and fluctuance on exam and patient reporting feeling similar to that admission. Concerns for sepsis Patient was given 1.5L NSS, 40meq KCL and 3gm IV magnesium on admission, Abx w/ IV Cefepime/Daptomycin Patient reporting erythema/warmth much improved from admission, asked RN to jewel to continue monitoring Continue IV abx w/ Cefepime/Daptomycin WBC trending down ID consultation placed, official consult pending but per discussion was going to de-escalate abx this morning however concerns w/ elbow and will obtain CT elbow urgent for eval fluid collection/possible consultation w/ orthopedics and will continue current abx at this time Blood cultures pending Wound RN consulted (patient reports she had appt upcoming this week) See below regarding hypoxia/pulmonary vascular congestion/volume overload, ?underlying CHAYA/obesity hypoventilation Continued inpatient stay (2) Sepsis: Plan: concerns for sepsis w/ leukocytosis however WBC 11.5k on admission, tachycardia, cellulitis, lactic acid 3.0, elevated Cr 1.37. unclear source but suspect cellulitis from flea/tick infestation at home, urine/blood cultures pending but cannot rule out infection to her elbow given fluctuant appearance on exam/history IVF on admit, repeat lactic wnl Continue broad spectrum abx w/ Cefepime/Dapto as above, infectious disease consulted WBC improving and patient reported feeling better/less warmth/redness however w/ volume overload/hypoxia this afternoon Checking CT L elbow given exam and concerns for fluid collection/need for intervention, possible consultation w/ orthopedics pending imaging Monitoring on telemetry, f/u cultures. remainder of treatment as outlined (3) Hypoxia: Plan: HYPOXIC THIS AFTERNOON w/ HYPOXIA to upper 80s on ROOM AIR Repeat eval w/ WHEEZING, O2 requirement to 3L NC. Noting patient was provided 1.5L NSS on admission for elevated lactic 3.0, wnl on repeat * Of note, patient has lasix 20mg PO daily on her medication list. She reported to me she hasn't taken this medication in quite some time >1 year (and that it was only 1 refill at that time) but review of fill history noting 4 refills f rom December 2021--> May 2022 (30 day supply lasting >60 days) and ?if should be on but hasn't been. * Will need to touch base w/ family for additional information as well ? confusion but she appeared alert/oriented for myself. PCP noted stopping HCTZ/triamterene when starting lasix therapy to assist w LE edema. * Weights at de Mar 2022 discharge were 128kg and currently reporting weight 134.9kg on standing scale. Neb x 1, CXR ordered for eval CXR obtained w/ evidence for cardiomegaly and pulmonary vascular congestion Ordered dose of IV lasix x 1, checking BNP *When RN providing her IV lasix, she did then endorse she DOES take furosemide at home, however given above ?compliance w/ this therapy at home. Rates 80-90s, up to 120s sinus this afternoon but ?if could be from duoneb provided for wheezing Asked RN to repeat standing weight -- 134.5kg at present (weight 124.5kg recorded as bedscale weight on admission) Monitor weights, I&Os Will have RN repeat standing scale weight, check BNP Will also check ECHO given septal infarct noted on EKG on admission however DENIED chest pain at present (and denied SOB despite hypoxia/pulm congestion) Supplemental O2 to maintain sats, nebs available prn (4) Electrolyte abnormality: Plan: Mag/K low on admission and replacement ordered Normalized on repeat labs and will continue to monitor w/ diuretics (5) Elevated troponin: Plan: Troponin on high sensitivity testing 71.5 --> 73.6 --> 45.6 and trending down since treatment of cellulitis as above. Was hypotensive on admission as well w/ BP 95/57 on admission Demand ischemia suspected 2nd to infection/sepsis Do not suspect ACS at present but cannot rule out DENIED any chest pain OR shortness of breath, but hypoxic this afternoon as above ?2nd IVF on admission EKG w/ CP and check ECHO given EKG on admission w/ septal infarct noted not appreciated on prior EKG was NSR this morning w/ rates in the 90s and had been 80-90s overnight w/ PACs, now w/ some sinus tachycardia to 120s this afternoon Monitor response to diuretics Continue to monitor on telemetry (6) Morbid obesity: Plan: BMI 46.4, noted. Weight loss/dietary changes recommended. ?underlying CHAYA/R sided heart failure, repeating ECHO (prior w/ normal EF but noting grade I diastolic dysfunction) (7) Status post mastectomy: Plan: Stopped anastrazole - planning on coming off this coming week per patient (however dx and started 2018? followed w/ Dr Easley then Catrach[facility] Duran) will see who she is to be seeing/inquire bout length of tx as typically 5 years and wouldn't be done until 2023?? Holding for now in setting of infection (8) Elevated lactic acid level: Plan VTE Prophylaxis - Lovenox 40mg SQ BID CT returning this evening w/ pocket of fluid posterior to olecranon process, bursal in location concerning for abscess and spoke w/ Dr Dodge given patient seen by [facility] prior admission. Will not be seen until AM but no need for NPO as he usually gives patients some time to respond to abx prior to intervention and can discuss w/ patient in AM Admission and Anticipated Discharge Date Admission Date: January 02, 2023 Supervising Physician Co-Signing Physician Notes PA Supervision Note: I did not personally see or examine the patient today, but I verified all dailey points of NIC Hernández's assessment and plan with the following exceptions/additions: Septic olecranon bursitis--> continue antibiotic coverage and consult Ortho to see about I&D or possibly bursectomy given recurrent nature. No need to hold anastrazole in setting of infection Subjective Patient evaluated prior to lunch, sitting up in bed, reporting her redness started on the back and arm at the same time, does feel similar to her prior admission w/ infection and requirement for surgery for I&D. She reports she believes the redness/warmth much improved, asked nursing to jewel with pen for continued surveillance. She has soreness to her leg, worse on the right leg distal to her knee. Multiple scabs and she does note she had been picking at them. She followed with Dr Easley and then Marjorie Duran from [facility] but unsure who her new PA at [facility] is but was to have appt tomorrow. Wound care was supposed to be this week as well. Vitals entered w/ Spo2 88%. Discussed w/ RN and believed incorrect but verifying. Discussed will obtain CT of her elbow for further information. --> Repeat vitals w/ accurate saturations, up to 4L NC w/ SpO2 94%. Denies significant shortness of breath but has some faint wheezing compared to this morning. 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), pulse palpable GI:+BS, obese, nontender : no rosales MSK/Neuro: no focal deficit/slurred speech, answering questions appropriately ROM intact and able to follow commands LUE w/ slight fluctuance/possible fluid collection to posterior elbow at site of olecranon, tender to palpation, no active drainage Skin: scattered lesions/scabs/eschar (see admission pictures) to bilateral LE, slightly larger lesion anterior right beard slightly tender, chronic venous insufficiency noted erythema to LUE and posterior back, slight L breast reportedly improved, asked RN to jewel Results & Data Results & Data Vital Signs (Past 12 Hours) Vital Signs Temp Pulse Pulse Pulse Resp BP Pulse Ox 01/03/23 03:15 36.6 C 91 H 18 129/74 90 01/03/23 00:59 78 01/02/23 23:22 36.3 C L 85 18 129/57 L 96 01/02/23 21:23 87 01/02/23 21:23 01/02/23 21:23 36.7 C 95 H 18 155/69 H 91 O2 Del Method 01/03/23 03:15 Room Air 01/03/23 00:59 01/02/23 23:22 Room Air 01/02/23 21:23 01/02/23 21:23 Room Air 01/02/23 21:23 Room Air Laboratory Results 01/03/23 01/02/23 Range/Units 04:41 16:45 WBC 9.26 (4.8-10.8) K/ul RBC 3.77 L (4.20-5.40) M/uL Hgb 11.8 L (12.0-16.0) g/dl Hct 36.1 L (37.0-47.0) % MCV 95.8 (80.0-100.0) fL MCH 31.3 (25.0-34.0) pg MCHC 32.7 (32.0-36.0) g/dL RDW Std Deviation 47.8 H (36.4-46.3) fL RDW Coeff of Rosalinda 13.5 (11.5-14.5) % Plt Count 114 L (130-400) K/uL MPV 9.6 (9.4-12.4) fL Immature Gran % (Auto) 1.1 % Neut % (Auto) 83.2 % Lymph % (Auto) 8.4 % [place] % (Auto) 4.5 % Eos % (Auto) 2.6 % Baso % (Auto) 0.2 % Neut # (Auto) 7.70 H (1.40-6.50) K/uL Lymph # (Auto) 0.78 L (1.20-3.40) K/uL [place] # (Auto) 0.42 (0.11-0.59) K/uL Eos # (Auto) 0.24 (0.00-0.50) K/uL Baso # (Auto) 0.02 (0.00-0.20) K/uL Immature Gran # (Auto) 0.10 (0.01-0.20) K/uL Sodium 137 (136-145) mmol/L Potassium 3.5 (3.5-5.1) mmol/L Chloride 104 (98-107) mmol/L Carbon Dioxide 27 (21-32) mmol/L Anion Gap 6 (3-11) BUN 22 (6-23) mg/dl Creatinine 1.12 (0.6-1.2) mg/dl Est Cr Clr Drug Dosing 56.5 ml/min Est GFR ( Amer) 53.4 ml/min Est GFR (Non-Af Amer) 46.0 ml/min BUN/Creatinine Ratio 19.6 (10-20) Glucose 111 H (70-99(Fasting)) mg/dl Calcium 8.4 L (8.6-10.3) mg/dl Magnesium 2.0 (1.7-2.4) mg/dl Troponin I High Sens 45.6 H D (0-14) pg/ml Urine Color Yellow Urine Appearance Cloudy A (Clear) Urine pH 5.5 (4.5-7.5) Ur Specific [place] 1.017 (1.000-1.030) Urine Protein 1+ H (Negative) Urine Glucose (UA) Negative (Negative) Urine Ketones Negative (Negative) Urine Blood 2+ H (Negative) Urine Nitrite Positive A (Negative) Urine Bilirubin Negative (Negative) Urine Urobilinogen Negative (Negative) Ur Leukocyte Esterase 2+ H (Negative) Urine WBC (Auto) >30 H (0-5) /hpf Urine RBC (Auto) 0-4 (0-4) /hpf U Hyaline Cast (Auto) 10-30 H (0-5) /lpf U Epithel Cells (Auto) >30 H (0-5) /lpf Urine Bacteria (Auto) 1+ H (Negative) Diagnostic Findings Elbow CT 01/03/23 11:54 CT SCAN OF THE LEFT ELBOW WITHOUT IV CONTRAST CLINICAL HISTORY: Cellulitis. Fluctuance. Possible fluid collection. COMPARISON STUDY: CT scan of the left elbow dated 04/21/2022. TECHNIQUE: CT scan of the left elbow was performed from the distal humerus to the proximal radius and ulna. Images are reviewed in the axial, sagittal, and coronal planes. IV contrast was not administered for this examination. A dose lowering technique was utilized adhering to the principles of ALARA. The examination is degraded by streak artifact from the body while abutting the CT gantry as well as mild motion. CT DOSE: 1934.47 mGy.cm FINDINGS: The skeletal structures are osteopenic. There is no evidence of acute fracture. No bony erosion or periostitis is identified. The joint spaces of the elbow appear maintained. No significant joint effusion is identified. There is generalized atrophy of the regional musculature. Superficial and deep soft tissue edema is seen in the soft tissues of the right upper extremity, greatest around the elbow joint. There is associated dermal thickening and subcutaneous fluid. A pocket of bursal fluid is suggested posterior to the olecranon on image #168. This measures at least 4.5 x 2 cm in maximum axial dimension. No soft tissue gas is identified in the imaged portions of the left arm. IMPRESSION: 1. No acute bony abnormality is identified. 2. Soft tissue edema and subcutaneous fluid is present in the left upper extremity, greatest around the elbow as above. The appearance favors cellulitis. Correlate clinically. 3. A pocket of fluid is suggested posterior to the olecranon process, and is likely bursal in location. The sterility of this fluid cannot be assessed by imaging and clinical correlation will be essential. ACT 112: Negative or not required by law. Dictated: 01/03/2023 4:27 PM Transcribed: 01/03/2023 4:53 PM Radha [id number] [email or web address] [id number] Electronically signed by: Kurtis Quintero M.D. 01/03/2023 4:55 PM Chest X-Ray 01/03/23 12:13 XR chest 1V portable HISTORY: 82 years-old Female hypoxia, eval volume overload acute hypoxia COMPARISON: 01/02/2023 TECHNIQUE: AP view of the chest FINDINGS: Cardiac silhouette is enlarged. Unchanged right hemidiaphragmatic elevation. Pulmonary vascular congestion. Mild subsegmental bibasilar densities. No pneumothorax or large pleural effusion. Left axillary surgical clips. Degenerative changes of the shoulders and spine. IMPRESSION: 1. Cardiomegaly with pulmonary vascular congestion. 2. Unchanged right hemidiaphragmatic elevation with mild bibasilar atelectasis. ACT 112: Negative or not required by law. The above report was generated using voice recognition software. It may contain grammatical, syntax or spelling errors. Electronically signed by: Ponce Phan M.D. 01/03/2023 3:39 PM PG Care Time/CCT Total # of Minutes Spent Total Time Spent with Patient: Total time spent is greater than 50% in coordination of care (as documented) at patient's floor/unit and/or counseling patient: Coding Level of Care Code 76441 SUB INP/OBS CARE 3/50MIN Diagnoses Cellulitis L03.313 Site of cellulitis: trunk Site of cellulitis of trunk: chest wall Sepsis A41.9 Sepsis type: sepsis due to unspecified organism Hypoxia R09.02 Electrolyte abnormality E87.8 Elevated troponin R79.89 Morbid obesity E66.01 Status post mastectomy Z90.10 Elevated lactic acid level R79.89 (1) Cellulitis Site of cellulitis: trunk Site of cellulitis of trunk: chest wall Qualified Code(s): L03.313 - Cellulitis of chest wall (2) Sepsis Sepsis type: sepsis due to unspecified organism Qualified Code(s): A41.9 - Sepsis, unspecified organism
[2023-01-03] MEDS: ENOXAPARIN INJ 40 MG/0.4 ML SYR SQ SCH ×2 (08:21→20:07)
--- NOTE | 2023-01-03 10:27 | Infectious Disease Consult ---
Date of Consultation January 03, 2023 Assessment & Plan (1) Cellulitis of chest wall: (2) Cellulitis of back: (3) Cellulitis of arm, left: Plan Micro: 01/02 UCx: NG 01/02 BCx x2: NGTD Abx: Dapto 01/02 - present Cefepime 01/02 - present Problems: #LUE and L back cellulitis #History of L olecranon bursitis s/p I&D in Mar 2022 82 yo F with history of prediabetes, HTN, HLD, chronic venous insufficiency, s/p mastectomy, LUE cellulitis with olecranon bursitis s/p I&D (03/2022, s/p cefaz brianna x 2 weeks) who presented on 01/02 with progressive left arm and back erythema and swelling x 2 days. She reports having a flea infestation in her house about 2 weeks ago, with multiple flea bites which she scratched, and development of sores/blisters. Denies pain. On presentation, patient was afebrile, VSS, WBC 11.54, creatinine 1.37, lactate 3 --> 1.6, procalcitonin 6.28. Pt was started on empiric daptomycin and cefepime, with improvement. CT L elbow without IV contrast shows a pocket of likely bursal fluid posterior to olecranon process, measuring at least 4.5 x 2 cm--cannot assess sterility by imaging. No soft tissue gas seen. Recommendations: -Stopped cefepime--do not think gram negative coverage is needed at this time. Continue daptomycin, dosed per ABW given BMI >30 -Consider ortho consult for CT findings Will continue to follow. Please page ID [facility] with further questions. Consultation Information Consultation was provided via telemedicine using two-way real-time interactive telecommunication between the patient and the telemedicine provider. For the duration of the visit, the provider was performing the assessment from a different facility than the patient. This includesuse of bluetooth stethoscope forauscultationperformed by the telepresenter that the telemedicine provider can hear if described in the physical exam. Information Systems Supervisor contact information: Please call ID [facility] . (Phone Number For Physician Use Only) After establishing a telemedicine visit, patient was: Patient was verified with two unique identifiers, Patient/authorized rep acknowledged consent and understanding and Gave permission to continue telehealth session Time Spent with Patient: Initial => 40 min History of Present Illness Reason for Consultation: Cellulitis Requesting Physician: Dr. Simón Sunshine Attending Physician: Genesis Yu MD History of Present Illness 82 yo F with history of prediabetes, HTN, HLD, chronic venous insufficiency, s/p mastectomy who presented on 01/02 with progressive left arm and back erythema and swelling x 2 days. She reports having a flea infestation in her house about 2 weeks ago, with multiple flea bites which she scratched, and development of sores/blisters. Denies pain. On presentation, patient was afebrile, VSS, WBC 11.54, creatinine 1.37, lactate 3 --> 1.6, procalcitonin 6.28. Pt was started on empiric daptomycin and cefepime. Patient has a history of cellulitis with olecranon bursitis s/p I&D in March 2022, complicated by bacteremia with MSSA, coag negative staph, group A strep. She was treated with cefazolin to complete a 2-week course. Pt reports she has been improving during this hospitalization--her arm does not feel as hot as before, swelling improving. Allergies Allergy/AdvReac Type Severity Reaction Status Date / Time erythromycin base AdvReac Unknown GI UPSET Verified 01/02/23 14:28 gabapentin AdvReac Unknown make sick Verified 01/02/23 14:28 - nausea [id number] Reductase AdvReac DIZZY Verified 01/02/23 14:28 Inhibitor LIGHTHEADEDNESS Home Medications Medication Instructions Recorded Confirmed Type anastrozole 1 mg tablet 1 mg PO QAM 01/23/19 01/02/23 History multivitamin 1 tab PO DAILY 11/06/21 01/02/23 History potassium gluconate 595 mg (99 mg) 99 mg PO DAILY 04/28/22 01/02/23 History tablet,extended release calcium carbonate 600 mg-vitamin 1 tab PO QAM 01/02/23 01/02/23 History D3 20 mcg (800 unit) chewable tablet (Caltrate 600 plus D) furosemide 20 mg tablet (Lasix) 20 mg PO QAM 11/05/23 11/05/23 History Patient History Medical History (Updated 01/03/23 @ 16:50 by Marjorie Hernández PA-C) Hypoxia Cellulitis Septic olecranon bursitis Acute respiratory failure with hypoxia Acute hyponatremia Pneumonia Extreme obesity Rash Chronic dermatitis under surveillance by PCP (improved with abx) Port-A-Cath in place Dermatitis of lower extremity Infiltrating ductal carcinoma of central portion of left breast in female Pancytopenia Breast cancer S/P CHEMO COMPLETED 03/2018- left breast RECENTLY RELEASED FROM ONCOLOGIST/ANNUAL VISITS NOW History of uterine cancer REMOTE HX, SX INTERVENTION/ ? HX FEW RADIATION TX'S, PT NOT SURE Anxiety MILD Hypertension Endometrial adenocarcinoma (07/25/14) "Endometrium, adenocarcinoma, grade 1, no LVSI, FIGO IB status post TAHBSO and Pelvic LND 08/29/14 Status post completion of radiation therapy 11/06/2014 received 2100 cGy utilizing HDR therapy " On 11/12/14 09:16 Jacy Teixeira wrote "Endometrium, adenocarcinoma, grade 1, no LVSI, FIGO IB status post TAHBSO and Pelvic LND 08/29/14 Status post completion of radiation therapy 11/06/2014 received 2100 cGy utilizing HDR therapy " On 11/12/14 08:56 Jacy Teixeira wrote "Endometrium, adenocarcinoma, grade 1, no LVSI, FIGO IB status post TAHBSO and Pelvic LND 08/29/14 " On 10/10/14 11:40 Veeral Garcia wrote "Endometrium, adenocarcinoma, grade 1, no LVSI, FIGO IB status post TAHBSO and Pelvic LND" Surgical History H/O elbow surgery april 2022, bacterial infection History of removal of Port-a-Cath (09/02/21) Removal of Access Port Right(Right) - Vic Wheat, , FACS H/O oral surgery H/O mastectomy LEFT History of ankle surgery LEFT/NO HARDWARE History of total knee replacement LEFT History of bowel resection R/T BENIGN TUMOR History of colonoscopy History of bilateral tubal ligation History of left breast biopsy History of total abdominal hysterectomy and bilateral salpingo-oophorectomy Family History Sister Family history of cancer Daughter Hx of CABG Coronary heart disease Myocardial infarction Father COPD (chronic obstructive pulmonary disease) Grandfather (Maternal) Colorectal cancer Denies family history of Ovarian cancer Prostate cancer Breast cancer Social History Smoking Status: Never smoker Second Hand Exposure: No; Do You Dip or Chew Tobacco: No; Hx Alcohol Use: No Hx Substance Use: No Preferred Language: Persian Communication Ability: Effective Visual Impairment: No Limitations Hearing Ability: Normal Websphere Process Server Developer Required: No Beliefs That Will Affect Care: None marital status: Single Current Living Situation: Family Current Living Situation Comment: Lives with daughter Matilde current occupational status: retired Other Information That Helps Us Care for You: No Feels Safe at Home: Yes Safety Concerns: Feels Safe At This Time Childhood Exposure to Second-Hand Smoke: No Dental Care, Regularly: No Physical Activity Frequency: 1-2 Times per Week Seatbelt Use: always Sunscreen Use: Yes Assistive Devices: Cane, Glasses and Walker Review of System A complete ROS was performed and is negative except as mentioned in the HPI. Physical Exam Physical Exam: GEN: Well-appearing, in NAD. RESP: No increased work of breathing EXT: LUE edema. SKIN: Scattered excoriations on LUE, bilateral lower extremities. Diffuse patchy erythema of LUE, L axilla, L upper back. Some light pink discoloration on L abdomen. NEURO: Alert and oriented. Answers all questions appropriately. Speech not slurred. PSYCH: Normal mood, affect appropriate. Results & Data Vital Signs (Past 12 Hours) Vital Signs Temp Pulse Pulse Resp BP Pulse Ox O2 Del Method 01/03/23 08:20 Room Air 01/03/23 07:50 37.5 C 91 H 22 141/77 H 91 Room Air 01/03/23 07:31 102 H 01/03/23 03:15 36.6 C 91 H 18 129/74 90 Room Air 01/03/23 00:59 78 01/02/23 23:22 36.3 C L 85 18 129/57 L 96 Room Air Laboratory Results Short CBC 01/03/23 Range/Units 04:41 WBC 9.26 (4.8-10.8) K/ul Hgb 11.8 L (12.0-16.0) g/dl Hct 36.1 L (37.0-47.0) % Plt Count 114 L (130-400) K/uL BMP 01/03/23 04:41 Sodium 137 Potassium 3.5 Chloride 104 Carbon Dioxide 27 BUN 22 Creatinine 1.12 Glucose 111 H Calcium 8.4 L Urine 01/02/23 Range/Units 16:45 Urine Color Yellow Urine Appearance Cloudy A (Clear) Urine pH 5.5 (4.5-7.5) Ur Specific [place] 1.017 (1.000-1.030) Urine Protein 1+ H (Negative) Urine Glucose (UA) Negative (Negative) Diagnostic Findings Chest X-Ray 01/02/23 12:55 XR chest 1V portable CLINICAL HISTORY: Sepsis TECHNIQUE: Single frontal radiograph of the chest was obtained. Comparison: Comparison is made to chest radiograph 02/14/2023 FINDINGS: No lines and tubes are seen. Calcified aortic knob is seen. The lungs are clear. No evidence of pleural effusion or pneumothorax. IMPRESSION: No acute abnormalities and in particular no radiographic evidence of pneumonia. ACT 112: Negative or not required by law. Electronically signed by: Rodney Mcdaniels M.D. 01/02/2023 1:[address] 01/03/23 11:54 CT SCAN OF THE LEFT ELBOW WITHOUT IV CONTRAST CLINICAL HISTORY: Cellulitis. Fluctuance. Possible fluid collection. COMPARISON STUDY: CT scan of the left elbow dated 04/21/2022. TECHNIQUE: CT scan of the left elbow was performed from the distal humerus to the proximal radius and ulna. Images are reviewed in the axial, sagittal, and coronal planes. IV contrast was not administered for this examination. A dose lowering technique was utilized adhering to the principles of ALARA. The examination is degraded by streak artifact from the body while abutting the CT gantry as well as mild motion. CT DOSE: 1934.47 mGy.cm FINDINGS: The skeletal structures are osteopenic. There is no evidence of acute fracture. No bony erosion or periostitis is identified. The joint spaces of the elbow appear maintained. No significant joint effusion is identified. There is generalized atrophy of the regional musculature. Superficial and deep soft tissue edema is seen in the soft tissues of the right upper extremity, greatest around the elbow joint. There is associated dermal thickening and subcutaneous fluid. A pocket of bursal fluid is suggested posterior to the olecranon on image #168. This measures at least 4.5 x 2 cm in maximum axial dimension. No soft tissue gas is identified in the imaged portions of the left arm. IMPRESSION: 1. No acute bony abnormality is identified. 2. Soft tissue edema and subcutaneous fluid is present in the left upper extremity, greatest around the elbow as above. The appearance favors cellulitis. Correlate clinically. 3. A pocket of fluid is suggested posterior to the olecranon process, and is likely bursal in location. The sterility of this fluid cannot be assessed by imaging and clinical correlation will be essential. ACT 112: Negative or not required by law. Dictated: 01/03/2023 4:27 PM Transcribed: 01/03/2023 4:53 PM Johnvonnie [id number] [facility]_[place] [id number] Electronically signed by: Kurtis Quintero M.D. 01/03/2023 4:55 PM Chest X-Ray 01/03/23 12:13 XR chest 1V portable HISTORY: 82 years-old Female hypoxia, eval volume overload acute hypoxia COMPARISON: 01/02/2023 TECHNIQUE: AP view of the chest FINDINGS: Cardiac silhouette is enlarged. Unchanged right hemidiaphragmatic elevation. Pulmonary vascular congestion. Mild subsegmental bibasilar densities. No pneumothorax or large pleural effusion. Left axillary surgical clips. Degenerative changes of the shoulders and spine. IMPRESSION: 1. Cardiomegaly with pulmonary vascular congestion. 2. Unchanged right hemidiaphragmatic elevation with mild bibasilar atelectasis. ACT 112: Negative or not required by law. The above report was generated using voice recognition software. It may contain grammatical, syntax or spelling errors. Electronically signed by: Ponce Phan M.D. 01/03/2023 3:39 PM Medications Administered Current Inpatient Medications Acetaminophen (Acetaminophen 325 Mg Tab) 650 mg PO Q4H PRN PRN Reason: Pain or Fever Stop: 02/01/23 17:56 Enoxaparin Sodium (Enoxaparin Inj 40 Mg/0.4 Ml Syr) 40 mg SQ BID SURINDER Stop: 02/02/23 08:59 Last Admin: 01/03/23 08:21 Dose: 40 mg Cefepime HCl 2,000 mg/ Syringe 20 mls @ 5 mls/min IV Q12H SURINDER; Protocol Stop: 01/10/23 02:59 Last Admin: 01/03/23 15:24 Dose: 5 mls/min Daptomycin 350 mg/ Syringe 7 mls @ 3.5 mls/min IV Q24H SURINDER; Protocol Stop: 01/10/23 14:59 Last Admin: 01/03/23 15:24 Dose: 3.5 mls/min Ipratropium [place] (Ipratropium [place] Neb Soln 0.02% 2.5 Ml Vial) 0.5 mg NEB Q8R PRN PRN Reason: shortness of breath or wheezing Stop: 02/02/23 22:59
[2023-01-03] MEDS ORDERED: ALBUT/IPRATROP 3MG/0.5MG NEB 3 ML VIAL NEB STA (12:38)
[2023-01-03] MEDS ORDERED: FUROSEMIDE 40 MG/4 ML VIAL IV ONE (12:38)
[2023-01-03] MEDS: DAPTOmycin 350 MG in SYRINGE 0 ML IV SCH (15:24)
--- NOTE | 2023-01-03 15:40 | XRay Report ---
XR chest 1V portable HISTORY: 82 years-old Female hypoxia, eval volume overload acute hypoxia COMPARISON: 01/02/2023 TECHNIQUE: AP view of the chest FINDINGS: Cardiac silhouette is enlarged. Unchanged right hemidiaphragmatic elevation. Pulmonary vascular conge stion. Mild subsegmental bibasilar densities. No pneumothorax or large pleural effusion. Left axillar y surgical clips. Degenerative changes of the shoulders and spine. IMPRESSION: 1. Cardiomegaly with pulmonary vascular congestion. 2. Unchanged right hemidiaphragmatic elevation with mild bibasilar atelectasis. ACT 112: Negative or not required by law. The above report was generated using voice recognition software. It may contain grammatical, syntax o r spelling errors. Electronically signed by: Ponce Phan M.D. 01/03/2023 3:39 PM
--- NOTE | 2023-01-03 16:56 | CT Scan Report ---
CT SCAN OF THE LEFT ELBOW WITHOUT IV CONTRAST CLINICAL HISTORY: Cellulitis. Fluctuance. Possible fluid collection. COMPARISON STUDY: CT scan of the left elbow dated 04/21/2022. TECHNIQUE: CT scan of the left elbow was performed from the distal humerus to the proximal radius and ulna. Images are reviewed in the axial, sagittal, and coronal planes. IV contrast was not administer ed for this examination. A dose lowering technique was utilized adhering to the principles of ALARA. The examination is degraded by streak artifact from the body while abutting the CT gantry as well as mild motion. CT DOSE: 1934.47 mGy.cm FINDINGS: The skeletal structures are osteopenic. There is no evidence of acute fracture. No bony ero river or periostitis is identified. The joint spaces of the elbow appear maintained. No significant radha int effusion is identified. There is generalized atrophy of the regional musculature. Superficial and deep soft tissue edema is seen in the soft tissues of the right upper extremity, greatest around the elbow joint. There is associated dermal thickening and subcutaneous fluid. A pocket of bursal fluid is suggested posterior to the olecranon on image #168. This measures at least 4.5 x 2 cm in maximum a xial dimension. No soft tissue gas is identified in the imaged portions of the left arm. IMPRESSION: 1. No acute bony abnormality is identified. 2. Soft tissue edema and subcutaneous fluid is present in the left upper extremity, greatest around t he elbow as above. The appearance favors cellulitis. Correlate clinically. 3. A pocket of fluid is suggested posterior to the olecranon process, and is likely bursal in locatio n. The sterility of this fluid cannot be assessed by imaging and clinical correlation will be jessica barrera ACT 112: Negative or not required by law. Dictated: 01/03/2023 4:27 PM Transcribed: 01/03/2023 4:53 PM Radha [id number] [facility] [id number] Electronically signed by: Kurtis Quintero M.D. 01/03/2023 4:55 PM
[2023-01-03] MEDS ORDERED: IPRATROPIUM BROMIDE NEB SOLN 0.02% 2.5 ML VIAL NEB PRN (16:58)
[2023-01-03] MEDS ORDERED: POTASSIUM CHLORIDE CRTAB 20 MEQ TABCR PO STA (17:36)
[2023-01-04 05:25] LABS: Basophils # (auto) 0.03 K/uL (0.00-0.20); Basophils % (auto) 0.3 %; Eosinophils # (auto) 0.37 K/uL (0.00-0.50); Eosinophils % (auto) 4.2 %; Hematocrit (blood only) 36.2 % (37.0-47.0); Hemoglobin 11.5 g/dl (12.0-16.0); Immature Granulocytes # (auto) 0.08 K/uL (0.01-0.20); Immature Granulocytes % (auto) 0.9 %; Lymphocytes # (auto) 0.59 K/uL (1.20-3.40); Lymphocytes % (auto) 6.6 %; Mean Corpuscular Hemoglobin 30.7 pg (25.0-34.0); Mean Corpuscular Hgb Conc 31.8 g/dL (32.0-36.0); Mean Corpuscular Volume 96.5 fL (80.0-100.0); Mean Platelet Volume 9.9 fL (9.4-12.4); Monocytes # (auto) 0.56 K/uL (0.11-0.59); Monocytes % (auto) 6.3 %; Neutrophils # (auto) 7.26 K/uL (1.40-6.50); Neutrophils % (auto) 81.7 %; Platelet Count 118 K/uL (130-400); RDW Coefficient of Variation 13.8 % (11.5-14.5); RDW Standard Deviation 49.4 fL (36.4-46.3); Red Blood Count 3.75 M/uL (4.20-5.40); White Blood Count 8.89 K/ul (4.8-10.8)
[2023-01-04 05:37] LABS: BUN Creatinine Ratio 18.1 (10-20); Calcium 8.6 mg/dl (8.6-10.3); Creatinine Clr Calc Pharmacy 54.5 ml/min; Est GFR (African American) 51.1 ml/min; Est GFR (Non-African American) 44.1 ml/min; Magnesium 1.9 mg/dl (1.7-2.4); Potassium 3.6 mmol/L (3.5-5.1)
--- NOTE | 2023-01-04 07:57 | Hospitalist Progress Note ---
Date of Service January 04, 2023 Assessment & Plan (1) Cellulitis: Plan: admission labs w/ WBC 11.5k, HR upper 90s (now recorded as 102bpm AM 01/03), lactic 3.0, and Procal 6.28. Concerns for sepsis, ? to infection to elbow given hx and fluctuance on exam and patient reporting feeling similar to that admission. Concerns for sepsis Given 1.5L NSS on admission (now likely volume overloaded) IV abx : Cefepime/Dapto ID consulted, discontinued Cefepime Ortho consulted given CT elbow obtained 01/03 Ct noting pocket of fluid is suggested posterior to the olecranon process, and is likely bursal in location. The sterility of this fluid cannot be assessed by imaging and clinical correlation will be essential. No intervention planned by orthopedics and continued abx at present time Wound RN on consult WBC continued improvement, afebrile Redness/warmth IMPROVING 01/04 but noting some picked scabs/recent bleeding -- cetirizine x1 for itching and can continue if effective (she does have underlying anxiety, so ?vistaril may be better option) Blood cultures continue NGTD, Daptomycin changed to Cefazolin IV given no purulence and did not feel needing MRSA coverage At in, to consider cefadroxil BID (or keflex if too $$) to complete 7-10 day course from 01/02 PT/OT consulted as fear of falling at home Monitor labs/exam on repeat (2) Sepsis: Plan: concerns for sepsis w/ leukocytosis WBC 11.5k on admission, tachycardia, cellulitis, lactic acid 3.0, elevated Cr 1.37, source cellulitis elbow urine/blood cultures pending IVF on admit, repeat lactic wnl Continue abx as above (3) Hypoxia: Plan: HYPOXIC AFTERNOON 01/03 w/ HYPOXIA to upper 80s on ROOM AIR Repeat eval w/ WHEEZING, O2 requirement to 3L NC. Noting patient was provided 1.5L NSS on admission for elevated lactic 3.0, wnl on repeat CXR repeated w/ cardiomegaly/pulmonary vascular congestion Of note, patient has lasix 20mg PO daily on her medication list but denied this medication until realized furosemide, however do not suspect compliance Was on HCTZ/triamterene per PCP but stopped when starting lasix to assist w/ LE edema Review of fill hx noting 4 refills from December to May 2022 which wouldn't be right and does report upon further probing on 01/04 that it causes her to pee too much and she doesn't take it as she should Suspect underlying diastolic dysfunction as well/R sided HF, ?need for CPAP/sleep study for underlying CHAYA Lasix 40mg IV x 1 on 01/04 Supplemental O2 down to 2L Monitor weights/I&O Wts 13.4kg--> 133.7kg w/ standing scale Additional 40mg PO lasix for this morning and planning to schedule BID dosing for now and monitoring response. Consider consultation w/ CHF clinic pending ECHO/response to diuretics jenn K supplementation while on lasix therapy f/u echo as ordered to eval EF/valvular disfunction given weight gain/LE edema/hypoxia (4) Electrolyte abnormality: Plan: Mag/K low on admission and replacement ordered Normalized on repeat labs and will continue to monitor w/ diuretics/supplementation w/ such (5) Elevated troponin: Plan: Troponin on high sensitivity testing 71.5 --> 73.6 --> 45.6 and trending down since treatment of cellulitis as above. Was hypotensive on admission as well w/ BP 95/57 on admission Demand ischemia suspected 2nd to infection/sepsis Do not suspect ACS at present but cannot rule out DENIED any chest pain OR shortness of breath, but hypoxic this afternoon as above ?2nd IVF on admission EKG w/ CP and check ECHO given EKG on admission w/ septal infarct noted not appreciated on prior EKG was NSR this morning w/ rates in the 90s and had been 80-90s overnight w/ PACs, now w/ some sinus tachycardia to 120s this afternoon Monitor response to diuretics Continue to monitor on telemetry (6) Morbid obesity: Plan: BMI 46.4, noted. Weight loss/dietary changes recommended. ?underlying CHAYA/R sided heart failure, repeating ECHO (prior w/ normal EF but noting grade I diastolic dysfunction) (7) Status post mastectomy: Plan: Stopped anastrazole - planning on coming off this coming week per patient (howev er dx and started 2018? followed w/ Dr Tracee Duran) RESUMED anastrazole as should be on for 5 years (noting not likely compliant given fill history) Needs f/u appt for CCP at in (8) Anxiety: Plan: anxiety/depression, on celexa 10mg daily --> celexa resumed Plan VTE Prophylaxis - Lovenox 40mg SQ BID continued inpatient stay monitoring response to abx/diuretics, echo pending PT/OT consulted to see if safe to return home Admission and Anticipated Discharge Date Admission Date: January 02, 2023 Supervising Physician Co-Signing Physician Notes PA Supervision Note: I did not personally see or examine the patient today, but I verified all dailey points of NIC Hernández's assessment and plan with the following exceptions/additions: None Subjective Evaluated this morning, on 2L. Additional lasix provided this morning but reports breathing feels much better.Redness improving/decreased warmth. Seeing by wound care this morning. Discussed lasix use at home and she notes she is not overly compliant with it due to having to get up/go to the bathroom so frequently. Daughter at bedside notes she does get short of breath with ambulation at home - discussed better compliance at home and need for therapy evaluations given concerns for patient and fear of falling at home. Discussed several scabs appear recently picked -- she denies this but when asked about possible medication to help with itching she is agreeable. ECHO performed this Am, not yet read. 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, some swelling in her hand today but no erythema GI:+BS, obese, nontender : no rosales MSK/Neuro: no focal deficit/slurred speech, answering questions appropriately ROM intact and able to follow commands LUE w/ slight fluctuance/possible fluid collection to posterior elbow at site of olecranon IMPROVED, decreased tenderness, no active drainage, improvement in ROM Skin: scattered lesions/scabs/eschar (see admission pictures) to bilateral LE, slightly larger lesion anterior right beard slightly tender, chronic venous insufficiency noted erythema to LUE and posterior back, slight L breast reportedly improved IMPROVED IN THE MARKINGS, less warmth/redness Results & Data Results & Data Vital Signs (Past 12 Hours) Vital Signs Temp Pulse Pulse Pulse Resp BP Pulse Ox 01/04/23 07:35 84 01/04/23 07:34 36.8 C 86 20 108/52 L 93 01/04/23 03:31 36.6 C 94 H 18 126/70 93 01/03/23 23:32 37.0 C 93 H 16 136/79 95 01/03/23 22:48 85 01/03/23 21:02 O2 Del Method O2 Flow Rate 01/04/23 07:35 01/04/23 07:34 Nasal Cannula 2 01/04/23 03:31 Nasal Cannula 2 01/03/23 23:32 Nasal Cannula 2 01/03/23 22:48 01/03/23 21:02 Nasal Cannula 2 Laboratory Results 01/04/23 01/03/23 Range/Units 04:11 17:28 WBC 8.89 (4.8-10.8) K/ul RBC 3.75 L (4.20-5.40) M/uL Hgb 11.5 L (12.0-16.0) g/dl Hct 36.2 L (37.0-47.0) % MCV 96.5 (80.0-100.0) fL MCH 30.7 (25.0-34.0) pg MCHC 31.8 L (32.0-36.0) g/dL RDW Std Deviation 49.4 H (36.4-46.3) fL RDW Coeff of Rosalinda 13.8 (11.5-14.5) % Plt Count 118 L (130-400) K/uL MPV 9.9 (9.4-12.4) fL Immature Gran % (Auto) 0.9 % Neut % (Auto) 81.7 % Lymph % (Auto) 6.6 % [place] % (Auto) 6.3 % Eos % (Auto) 4.2 % Baso % (Auto) 0.3 % Neut # (Auto) 7.26 H (1.40-6.50) K/uL Lymph # (Auto) 0.59 L (1.20-3.40) K/uL [place] # (Auto) 0.56 (0.11-0.59) K/uL Eos # (Auto) 0.37 (0.00-0.50) K/uL Baso # (Auto) 0.03 (0.00-0.20) K/uL Immature Gran # (Auto) 0.08 (0.01-0.20) K/uL Sodium 136 (136-145) mmol/L Potassium 3.6 (3.5-5.1) mmol/L Chloride 102 (98-107) mmol/L Carbon Dioxide 29 (21-32) mmol/L Anion Gap 5 (3-11) BUN 21 (6-23) mg/dl Creatinine 1.16 (0.6-1.2) mg/dl Est Cr Clr Drug Dosing 54.5 ml/min Est GFR ( Amer) 51.1 ml/min Est GFR (Non-Af Amer) 44.1 ml/min BUN/Creatinine Ratio 18.1 (10-20) Glucose 110 H (70-99(Fasting)) mg/dl Calcium 8.6 (8.6-10.3) mg/dl Magnesium 1.9 (1.7-2.4) mg/dl B-Natriuretic Peptide 53 (0-100) pg/ml Diagnostic Findings Elbow CT 01/03/23 11:54 CT SCAN OF THE LEFT ELBOW WITHOUT IV CONTRAST CLINICAL HISTORY: Cellulitis. Fluctuance. Possible fluid collection. COMPARISON STUDY: CT scan of the left elbow dated 04/21/2022. TECHNIQUE: CT scan of the left elbow was performed from the distal humerus to the proximal radius and ulna. Images are reviewed in the axial, sagittal, and coronal planes. IV contrast was not administered for this examination. A dose lowering technique was utilized adhering to the principles of ALARA. The examination is degraded by streak artifact from the body while abutting the CT gantry as well as mild motion. CT DOSE: 1934.47 mGy.cm FINDINGS: The skeletal structures are osteopenic. There is no evidence of acute fracture. No bony erosion or periostitis is identified. The joint spaces of the elbow appear maintained. No significant joint effusion is identified. There is generalized atrophy of the regional musculature. Superficial and deep soft tissue edema is seen in the soft tissues of the right upper extremity, greatest around the elbow joint. There is associated dermal thickening and subcutaneous fluid. A pocket of bursal fluid is suggested posterior to the olecranon on image #168. This measures at least 4.5 x 2 cm in maximum axial dimension. No soft tissue gas is identified in the imaged portions of the left arm. IMPRESSION: 1. No acute bony abnormality is identified. 2. Soft tissue edema and subcutaneous fluid is present in the left upper extremity, greatest around the elbow as above. The appearance favors cellulitis. Correlate clinically. 3. A pocket of fluid is suggested posterior to the olecranon process, and is likely bursal in location. The sterility of this fluid cannot be assessed by imaging and clinical correlation will be essential. ACT 112: Negative or not required by law. Dictated: 01/03/2023 4:27 PM Transcribed: 01/03/2023 4:53 PM Radha [id number] AFSHAN_Raymundo [id number] Electronically signed by: Kurtis Quintero M.D. 01/03/2023 4:55 PM Chest X-Ray 01/03/23 12:13 XR chest 1V portable HISTORY: 82 years-old Female hypoxia, eval volume overload acute hypoxia COMPARISON: 01/02/2023 TECHNIQUE: AP view of the chest FINDINGS: Cardiac silhouette is enlarged. Unchanged right hemidiaphragmatic elevation. Pulmonary vascular congestion. Mild subsegmental bibasilar densities. No pneumothorax or large pleural effusion. Left axillary surgical clips. Degenerative changes of the shoulders and spine. IMPRESSION: 1. Cardiomegaly with pulmonary vascular congestion. 2. Unchanged right hemidiaphragmatic elevation with mild bibasilar atelectasis. ACT 112: Negative or not required by law. The above report was generated using voice recognition software. It may contain grammatical, syntax or spelling errors. Electronically signed by: Ponce Phan M.D. 01/03/2023 3:39 PM PG Care Time/CCT Total # of Minutes Spent Total Time Spent with Patient: Total time spent is greater than 50% in coordination of care (as documented) at patient's floor/unit and/or counseling patient: Coding Level of Care Code 23526 SUB INP/OBS CARE 3/50MIN Diagnoses Cellulitis L03.313 Site of cellulitis: trunk Site of cellulitis of trunk: chest wall Sepsis A41.9 Sepsis type: sepsis due to unspecified organism Hypoxia R09.02 Electrolyte abnormality E87.8 Elevated troponin R79.89 Morbid obesity E66.01 Status post mastectomy Z90.10 Anxiety F41.9 (1) Cellulitis Site of cellulitis: trunk Site of cellulitis of trunk: chest wall Qualified Code(s): L03.313 - Cellulitis of chest wall (2) Sepsis Sepsis type: sepsis due to unspecified organism Qualified Code(s): A41.9 - Sepsis, unspecified organism
[2023-01-04] MEDS: ENOXAPARIN INJ 40 MG/0.4 ML SYR SQ SCH ×2 (08:34→20:39)
[2023-01-04] MEDS ORDERED: POTASSIUM CHLORIDE CRTAB 20 MEQ TABCR PO STA (09:48)
[2023-01-04] MEDS ORDERED: FUROSEMIDE 40 MG TAB PO ONE (10:00)
[2023-01-04] MEDS: CITALOPRAM 20 MG TAB PO SCH (10:25)
--- NOTE | 2023-01-04 11:26 | Orthopedic Consultation ---
Date of Consultation January 04, 2023 Assessment & Plan (1) Cellulitis of arm, left: Left lower arm cellulitis without evidence of septic olecranon bursitis. Treatment of cellulitis with IV antibiotics per Medicine. No orthopedic surgical intervention required. Orthopedics will sign off at this point. No need for orthopedic follow-up. History of Present Illness Reason for Consultation: "Concern for septic olecranon bursitis" Attending Physician: Genesis Yu MD History of Present Illness Ms. Bailon is an 82-year-old female who developed left lower arm swelling and erythema this past . When asked what is going on with her elbow, she replied "nothing". She has multiple excoriations and scabs on bilateral lower arms that she reports is secondary to a flea infestation. She has been scratching at these wounds. She then developed significant swelling and erythema in the left lower arm this past Monday 01/01. This progressively worsened, and she presented to the emergency room on Tuesday, and was admitted for treatment of cellulitis. She reports dramatic improvement in the erythema and swelling in her left arm since admission and initiation of IV antibiotics. There is concern for possible septic olecranon bursitis, and orthopedics was consulted. She does have a history of left septic olecranon bursitis that required surgery on 04/22/22. She states that this feels very different than it did at that time. She denies any focal fluid collection or focal tenderness to palpation at the olecranon tip like she did back in March. She maintains normal painless elbow range of motion. Allergies Allergy/AdvReac Type Severity Reaction Status Date / Time erythromycin base AdvReac Unknown GI UPSET Verified 01/02/23 14:28 gabapentin AdvReac Unknown make sick Verified 01/02/23 14:28 - nausea Iuitinx-PFE-PlW Reductase AdvReac DIZZY Verified 01/02/23 14:28 Inhibitor LIGHTHEADEDNESS Home Medications Medication Instructions Recorded Confirmed Type anastrozole 1 mg tablet 1 mg PO QAM 01/23/19 01/02/23 History multivitamin 1 tab PO DAILY 11/06/21 01/02/23 History potassium gluconate 595 mg (99 mg) 99 mg PO DAILY 04/28/22 01/02/23 History tablet,extended release calcium carbonate 600 mg-vitamin 1 tab PO QAM 01/02/23 01/02/23 History D3 20 mcg (800 unit) chewable tablet (Caltrate 600 plus D) furosemide 20 mg tablet (Lasix) 20 mg PO QAM 01/02/23 01/02/23 History Patient History Medical History (Updated 01/04/23 @ 09:48 by Marjorie Hernández PA-C) Hypoxia Cellulitis Septic olecranon bursitis Acute respiratory failure with hypoxia Acute hyponatremia Pneumonia Extreme obesity Rash Chronic dermatitis under surveillance by PCP (improved with abx) Port-A-Cath in place Dermatitis of lower extremity Infiltrating ductal carcinoma of central portion of left breast in female Pancytopenia Breast cancer S/P CHEMO COMPLETED 03/2018- left breast RECENTLY RELEASED FROM ONCOLOGIST/ANNUAL VISITS NOW History of uterine cancer REMOTE HX, SX INTERVENTION/ ? HX FEW RADIATION TX'S, PT NOT SURE Anxiety MILD Hypertension Endometrial adenocarcinoma (07/25/14) "Endometrium, adenocarcinoma, grade 1, no LVSI, FIGO IB status post TAHBSO and Pelvic LND 08/29/14 Status post completion of radiation therapy 11/06/2014 received 2100 cGy utilizing HDR therapy " On 11/12/14 09:16 Jacy Teixeira wrote "Endometrium, adenocarcinoma, grade 1, no LVSI, FIGO IB status post TAHBSO and Pelvic LND 08/29/14 Status post completion of radiation therapy 11/06/2014 received 2100 cGy utilizing HDR therapy " On 11/12/14 08:56 Jacy Teixeira wrote "Endometrium, adenocarcinoma, grade 1, no LVSI, FIGO IB status post TAHBSO and Pelvic LND 08/29/14 " On 10/10/14 11:40 Vecandida Garcia wrote "Endometrium, adenocarcinoma, grade 1, no LVSI, FIGO IB status post TAHBSO and Pelvic LND" Surgical History H/O elbow surgery april 2022, bacterial infection History of removal of Port-a-Cath (09/02/21) Removal of Access Port Right(Right) - Vic Wheat, , FACS H/O oral surgery H/O mastectomy LEFT History of ankle surgery LEFT/NO HARDWARE History of total knee replacement LEFT History of bowel resection R/T BENIGN TUMOR History of colonoscopy History of bilateral tubal ligation History of left breast biopsy History of total abdominal hysterectomy and bilateral salpingo-oophorectomy Family History Sister Family history of cancer Daughter Hx of CABG Coronary heart disease Myocardial infarction Father COPD (chronic obstructive pulmonary disease) Grandfather (Maternal) Colorectal cancer Denies family history of Ovarian cancer Prostate cancer Breast cancer Social History Smoking Status: Never smoker Second Hand Exposure: No; Do You Dip or Chew Tobacco: No; Hx Alcohol Use: No Hx Substance Use: No Preferred Language: Amharic Communication Ability: Effective Visual Impairment: No Limitations Hearing Ability: Normal Center Hole Reamer Required: No Beliefs That Will Affect Care: None marital status: Single Current Living Situation: Family Current Living Situation Comment: Lives with daughter Matilde current occupational status: retired Other Information That Helps Us Care for You: No Feels Safe at Home: Yes Safety Concerns: Feels Safe At This Time Childhood Exposure to Second-Hand Smoke: No Dental Care, Regularly: No Physical Activity Frequency: 1-2 Times per Week Seatbelt Use: always Sunscreen Use: Yes Assistive Devices: Cane, Glasses and Walker Physical Exam Physical Exam: Examination of the left arm reveals very diffuse erythema and swelling in the forearm consistent with cellulitis. There are multiple scabs consistent with her history of scratching at fleabites. No open draining wounds. She is morbidly obese. She has full painless elbow range of motion. There is no focal tenderness palpation or palpable fluid collection at the olecranon tip. No fluctuance or significant focal swelling there. Results & Data Vital Signs (Past 12 Hours) Vital Signs Temp Pulse Pulse Pulse Resp BP Pulse Ox 01/04/23 11:07 36.5 C 89 22 143/58 H 93 01/04/23 08:30 01/04/23 07:35 84 01/04/23 07:34 36.8 C 86 20 108/52 L 93 01/04/23 03:31 36.6 C 94 H 18 126/70 93 01/03/23 23:32 37.0 C 93 H 16 136/79 95 O2 Del Method O2 Flow Rate 01/04/23 11:07 Nasal Cannula 2 01/04/23 08:30 Nasal Cannula 2 01/04/23 07:35 01/04/23 07:34 Nasal Cannula 2 01/04/23 03:31 Nasal Cannula 2 01/03/23 23:32 Nasal Cannula [address] scan of the left arm was independently interpreted by me. There is diffuse subcutaneous edema consistent with cellulitis. I do not see any significant focal fluid collection at the olecranon tip. Radiologist indicated some signal abnormality there, but I think this may be related to her previous surgery back in March.
[2023-01-04] MEDS ORDERED: CETIRIZINE HCL 10 MG TABLET PO ONE (12:12)
--- NOTE | 2023-01-04 12:35 | XCELERA ---
[id number] \\[id number]
--- NOTE | 2023-01-04 14:32 | Infectious Disease Progress Nt ---
Date of Service January 04, 2023 Assessment & Plan (1) Cellulitis of chest wall: (2) Cellulitis of back: (3) Cellulitis of arm, left: Plan Micro: 01/02 UCx: 3 types of organisms, all low counts probable skin gopi 01/02 BCx x2: NGTD Abx: Dapto 01/02 - present Cefepime 01/02 - 01/03 Problems: #LUE and L back cellulitis #History of L septic olecranon bursitis s/p I&D in Mar 2022 82 yo F with history of prediabetes, HTN, HLD, chronic venous insufficiency, s/p mastectomy, LUE cellulitis with olecranon bursitis s/p I&D (03/2022, s/p cefazolin x 2 weeks) who presented on 01/02 with progressive left arm and back erythema and swelling x 2 days. She reports having a flea infestation in her house about 2 weeks ago, with multiple flea bites which she scratched, and development of sores/blisters. Denies pain. On presentation, patient was afebrile, VSS, WBC 11.54, creatinine 1.37, lactate 3 --> 1.6, procalcitonin 6.28. Pt was started on empiric daptomycin and cefepime, with improvement. CT L elbow without IV contrast shows a pocket of likely bursal fluid posterior to olecranon process, measuring at least 4.5 x 2 cm--cannot assess sterility by imaging. No soft tissue gas seen. Ortho consulted--no concern for septic olecranon bursitis on exam. Recommendations: -Stopped daptomycin, started cefazolin 2 g IV q8h. No purulence, do not think MRSA coverage needed. -On discharge, can transition to cefadroxil 500 mg PO q12h (or cephalexin 500 mg PO q6h if too expensive) to complete a total 7-10 day course of antibiotics from 01/02 Will sign off. Please page [facility] Call Center with further questions. Admission and Anticipated Discharge Date Admission Date: January 02, 2023 Subjective This patient recommendation is based on a telemedicine consult request which was completed asynchronously through chart review and information provided by the primary physician. The patient was not seen or examined today. The evaluation is consultative in nature and all patient care and treatment decisions can either be accepted or rejected by the patient's primary hospital-based treating physician using their own independent medical judgment for their patient. Time Spent Reviewing Chart: 11 - 20 minutes LLE improving since admission AFebrile without leukocytosis Evaluated by ortho--no c/f septic olecranon bursitis Review of System pt not seen Physical Exam 2 Physical Exam: Patient not seen Results & Data Vital Signs (Past 12 Hours) Vital Signs Temp Pulse Pulse Pulse Resp BP Pulse Ox 01/04/23 11:07 36.5 C 89 22 143/58 H 93 01/04/23 08:30 01/04/23 07:35 84 01/04/23 07:34 36.8 C 86 20 108/52 L 93 01/04/23 03:31 36.6 C 94 H 18 126/70 93 O2 Del Method O2 Flow Rate 01/04/23 11:07 Nasal Cannula 2 01/04/23 08:30 Nasal Cannula 2 01/04/23 07:35 01/04/23 07:34 Nasal Cannula 2 01/04/23 03:31 Nasal Cannula 2 Laboratory Results Short CBC 01/04/23 Range/Units 04:11 WBC 8.89 (4.8-10.8) K/ul Hgb 11.5 L (12.0-16.0) g/dl Hct 36.2 L (37.0-47.0) % Plt Count 118 L (130-400) K/uL BMP 01/04/23 04:11 Sodium 136 Potassium 3.6 Chloride 102 Carbon Dioxide 29 BUN 21 Creatinine 1.16 Glucose 110 H Calcium 8.6 Medications Administered Current Inpatient Medications Acetaminophen (Acetaminophen 325 Mg Tab) 650 mg PO Q4H PRN PRN Reason: Pain or Fever Stop: 02/01/23 17:56 Citalopram Hydrobromide (Citalopram 20 Mg Tab) 10 mg PO QAM SURINDER Stop: 02/03/23 09:59 Last Admin: 01/04/23 10:25 Dose: 10 mg Enoxaparin Sodium (Enoxaparin Inj 40 Mg/0.4 Ml Syr) 40 mg SQ BID SURINDER Stop: 02/02/23 08:59 Last Admin: 01/04/23 08:34 Dose: 40 mg Daptomycin 350 mg/ Syringe 7 mls @ 3.5 mls/min IV Q24H [facility]; Protocol Stop: 01/10/23 14:59 Last Admin: 01/03/23 15:24 Dose: 3.5 mls/min Ipratropium [place] (Ipratropium [place] Neb Soln 0.02% 2.5 Ml Vial) 0.5 mg NEB Q8R PRN PRN Reason: shortness of breath or wheezing Stop: 02/02/23 22:59
[2023-01-04] MEDS: DAPTOmycin 350 MG in SYRINGE 0 ML IV SCH (16:01)
[2023-01-04] MEDS: ANASTROZOLE 1 MG TAB PO SCH (16:54)
[2023-01-04] MEDS: FUROSEMIDE 40 MG TAB PO SCH (16:54)
[2023-01-04] MEDS: POTASSIUM CHLORIDE CRTAB 20 MEQ TABCR PO SCH (20:39)
[2023-01-05 05:28] LABS: Basophils # (auto) 0.04 K/uL (0.00-0.20); Basophils % (auto) 0.4 %; Eosinophils % (auto) 7.7 %; Hemoglobin 11.5 g/dl (12.0-16.0); Immature Granulocytes # (auto) 0.05 K/uL (0.01-0.20); Immature Granulocytes % (auto) 0.5 %; Lymphocytes # (auto) 0.93 K/uL (1.20-3.40); Lymphocytes % (auto) 10.2 %; Mean Corpuscular Hemoglobin 30.4 pg (25.0-34.0); Mean Corpuscular Hgb Conc 31.9 g/dL (32.0-36.0); Mean Corpuscular Volume 95.2 fL (80.0-100.0); Mean Platelet Volume 9.9 fL (9.4-12.4); Monocytes # (auto) 0.73 K/uL (0.11-0.59); Neutrophils # (auto) 6.69 K/uL (1.40-6.50); Neutrophils % (auto) 73.2 %; Platelet Count 118 K/uL (130-400); RDW Coefficient of Variation 13.6 % (11.5-14.5); RDW Standard Deviation 47.8 fL (36.4-46.3); Red Blood Count 3.78 M/uL (4.20-5.40); White Blood Count 9.14 K/ul (4.8-10.8)
[2023-01-05 05:44] LABS: Calcium 8.7 mg/dl (8.6-10.3); Magnesium 1.7 mg/dl (1.7-2.4); Potassium 3.7 mmol/L (3.5-5.1)
[2023-01-05 05:49] LABS: BUN Creatinine Ratio 20.4 (10-20); Creatinine Clr Calc Pharmacy 61.2 ml/min; Est GFR (Non-African American) 50.9 ml/min
[2023-01-05] MEDS: POTASSIUM CHLORIDE CRTAB 20 MEQ TABCR PO SCH ×2 (08:23→20:02)
[2023-01-05] MEDS: CITALOPRAM 20 MG TAB PO SCH (08:23)
[2023-01-05] MEDS: ANASTROZOLE 1 MG TAB PO SCH (08:23)
[2023-01-05] MEDS: FUROSEMIDE 40 MG TAB PO SCH ×2 (08:23→16:18)
--- NOTE | 2023-01-05 08:23 | XRay Report ---
XR chest 1V portable HISTORY: f/u pulmonary vascular congestion COMPARISON: Chest 01/03/2023. FINDINGS: No pneumothorax. Persistent elevation the right hemidiaphragm with patchy right basilar den sities. The heart remains mildly enlarged. There is mild diffuse interstitial thickening suggestive o f pulmonary vascular congestion. Surgical clips noted within the left chest wall. IMPRESSION: 1. No significant change compared to the prior study. Elevated right hemidiaphragm and right basilar densities persist. 3. Cardiomegaly and mild pulmonary vascular congestion again noted. ACT 112: Negative or not required by law. Electronically signed by: Cuate Jolly M.D. 01/05/2023 8:21 AM
[2023-01-05] MEDS: ENOXAPARIN INJ 40 MG/0.4 ML SYR SQ SCH ×2 (08:24→20:02)
[2023-01-05] MEDS: ceFAZolin 2000MG 2,000 MG/15 ML SYR IV SCH ×2 (16:22→23:41)
--- NOTE | 2023-01-05 18:02 | Hospitalist Progress Note ---
Date of Service January 05, 2023 Assessment & Plan (1) Cellulitis: Plan: P/w leukocytosis, tachycardia, lactate 3.0, and Procal 6.28. Concerns for sepsis 2/2 LUE cellulitis with possible olecranon bursitis Started on Cefepime/Dapto ID consulted, discontinued Cefepime CT elbow showed pocket of fluid is suggested posterior to the olecranon process, and is likely bursal in location. The sterility of this fluid cannot be assessed by imaging and clinical correlation will be essential. Ortho consulted- No intervention planned by orthopedics, did not feel needed I&D Leukocytosis resolved, erythema and edema improving as per patient and erythema receding from drawn line, afebrile Blood cultures NGTD -continue Cefazolin IV given no purulence and did not feel needed MRSA coverage -At dc, plan for cefadroxil BID (or keflex if too $$) to complete 7-10 day course from 01/02 -follow clinically -follow CBC, BMP -elevated LUE (2) Sepsis: Plan: as above (3) Hypoxia: Plan: Became hypoxic on 01/03 with wheezing, POx upper 80s on RA. Had received IVFs on admission for sepsis CXR w/ cardiomegaly/pulmonary vascular congestion and elevated right hemidiaphragm ECHO with preserved EF This is acute on chronic HFpEF Lasix 40mg IV x 1 given and now on lasix 40mg po bid Improving but still requiring 2LNC at rest and 6L with exertion Increase lasix to 40mg IV bid Monitor weights/I&O Follow BMP, magnesium and replace as needed (4) Elevated troponin: Plan: Troponin on high sensitivity testing 71.5 --> 73.6 --> 45.6 Was hypotensive on admission Demand ischemia suspected 2nd to infection/sepsis ECG with no acute ischemic changes, NSR with PACs ECHO preserved EF and no WMAs No need to further monitor on tele (5) Morbid obesity: Plan: BMI 46.4, noted. Weight loss/dietary changes recommended. (6) Status post mastectomy: Plan: Continue anastrazole Needs f/u appt for CCP at [facility] (7) Anxiety: Plan: -celexa 10mg daily Plan VTE Prophylaxis - Lovenox 40mg SQ BID Dispo-continued inpatient stay for cellulitis treatment and for volume overload, hypoxia PT/OT consulted to see if needs rehab Admission and Anticipated Discharge Date Admission Date: January 02, 2023 Subjective Pt reports left arm feels much better, less swelling and redness is much improved. No CP or SOB. Was requiring 6LNC with ambulation for 2 step walk test today but didn't really feel winded. Tele with NSR, PVCs, PACs, rates 80-90s Physical Exam Constitutional: WD/WN, vitals as above Respiratory: normal respiratory effort, lungs clear to auscultation Cardiovascular: Rate/Rhythm: regular rate and regular rhythm Extremities: + edema (2+ LUE, 1+ BLEs) Gastrointestinal (Abdomen): normal bowel sounds, soft, nontender, no hepatosplenomegaly Skin: numerous scabbed over lesions arms and legs LUE with significant edema, erythema from hand to shoulder, blanching Psychiatric: A+Ox3, euthymic affect Results & Data Results & Data Vital Signs (Past 12 Hours) Vital Signs Temp Pulse Pulse Pulse Pulse Pulse Pulse 01/05/23 16:26 36.4 C L 83 01/05/23 14:02 76 01/05/23 11:47 36.8 C 87 01/05/23 10:54 76 01/05/23 09:37 01/05/23 09:26 90 95 H 102 H 01/05/23 07:22 36.7 C 82 01/05/23 06:00 81 Pulse Pulse Pulse Resp Resp Resp Resp 01/05/23 16:26 19 01/05/23 14:02 01/05/23 11:47 20 01/05/23 10:54 20 01/05/23 09:37 01/05/23 09:26 85 88 85 23 26 H 28 H 01/05/23 07:22 20 01/05/23 06:00 Resp Resp Resp BP Pulse Ox Pulse Ox Pulse Ox 01/05/23 16:26 120/72 93 01/05/23 14:02 01/05/23 11:47 161/78 H 93 01/05/23 10:54 92 01/05/23 09:37 01/05/23 09:26 20 21 20 92 85 L 01/05/23 07:22 130/71 95 01/05/23 06:00 Pulse Ox Pulse Ox Pulse Ox Pulse Ox O2 Del Method O2 Flow Rate O2 Flow Rate 01/05/23 16:26 Nasal Cannula 3 01/05/23 14:02 01/05/23 11:47 Nasal Cannula 3 01/05/23 10:54 Nasal Cannula 3 01/05/23 09:37 Nasal Cannula 2 01/05/23 09:26 86 L 86 L 85 L 86 L 3 01/05/23 07:22 Nasal Cannula 2 01/05/23 06:00 O2 Flow Rate O2 Flow Rate O2 Flow Rate O2 Flow Rate O2 Flow Rate 01/05/23 16:26 01/05/23 14:02 01/05/23 11:47 01/05/23 10:54 01/05/23 09:37 01/05/23 09:26 4 6 1 2 0 01/05/23 07:22 01/05/23 06:00 Laboratory Results CBC, magnesium, BMP reviewed Diagnostic Findings Chest X-Ray 01/05/23 07:00 XR chest 1V portable HISTORY: f/u pulmonary vascular congestion COMPARISON: Chest 01/03/2023. FINDINGS: No pneumothorax. Persistent elevation the right hemidiaphragm with patchy right basilar densities. The heart remains mildly enlarged. There is mild diffuse interstitial thickening suggestive of pulmonary vascular congestion. Surgical clips noted within the left chest wall. IMPRESSION: 1. No significant change compared to the prior study. Elevated right hemidiaphragm and right basilar densities persist. 3. Cardiomegaly and mild pulmonary vascular congestion again noted. ACT 112: Negative or not required by law. Electronically signed by: Cuate Jolly M.D. 01/05/2023 8:21 AM PG Care Time/CCT Total # of Minutes Spent Total Time Spent with Patient: Total time spent is greater than 50% in coordination of care (as documented) at patient's floor/unit and/or counseling patient: Coding Level of Care Code 91720 SUB INP/OBS CARE 2/35MIN Diagnoses Cellulitis L03.313 Site of cellulitis: trunk Site of cellulitis of trunk: chest wall Sepsis A41.9 Sepsis type: sepsis due to unspecified organism Hypoxia R09.02 Elevated troponin R79.89 Morbid obesity E66.01 Status post mastectomy Z90.10 Anxiety F41.9 (1) Cellulitis Site of cellulitis: trunk Site of cellulitis of trunk: chest wall Qualified Code(s): L03.313 - Cellulitis of chest wall (2) Sepsis Sepsis type: sepsis due to unspecified organism Qualified Code(s): A41.9 - Sepsis, unspecified organism
[2023-01-06 06:42] LABS: Basophils # (auto) 0.03 K/uL (0.00-0.20); Basophils % (auto) 0.6 %; Eosinophils # (auto) 0.54 K/uL (0.00-0.50); Eosinophils % (auto) 10.1 %; Hematocrit (blood only) 37.2 % (37.0-47.0); Hemoglobin 11.9 g/dl (12.0-16.0); Immature Granulocytes % (auto) 1.9 %; Lymphocytes # (auto) 0.82 K/uL (1.20-3.40); Lymphocytes % (auto) 15.3 %; Mean Corpuscular Hemoglobin 30.6 pg (25.0-34.0); Mean Corpuscular Volume 95.6 fL (80.0-100.0); Mean Platelet Volume 9.7 fL (9.4-12.4); Monocytes # (auto) 0.51 K/uL (0.11-0.59); Monocytes % (auto) 9.5 %; Neutrophils # (auto) 3.37 K/uL (1.40-6.50); Neutrophils % (auto) 62.6 %; Platelet Count 133 K/uL (130-400); RDW Coefficient of Variation 13.5 % (11.5-14.5); RDW Standard Deviation 47.9 fL (36.4-46.3); Red Blood Count 3.89 M/uL (4.20-5.40); White Blood Count 5.37 K/ul (4.8-10.8)
[2023-01-06 06:53] LABS: BUN Creatinine Ratio 22.7 (10-20); Calcium 9.1 mg/dl (8.6-10.3); Creatinine Clr Calc Pharmacy 57.2 ml/min; Est GFR (African American) 54.5 ml/min; Magnesium 1.7 mg/dl (1.7-2.4); Potassium 3.8 mmol/L (3.5-5.1)
[2023-01-06] MEDS: ceFAZolin 2000MG 2,000 MG/15 ML SYR IV SCH ×2 (08:07→15:51)
[2023-01-06] MEDS: ANASTROZOLE 1 MG TAB PO SCH (08:08)
[2023-01-06] MEDS: CITALOPRAM 20 MG TAB PO SCH (08:08)
[2023-01-06] MEDS: ENOXAPARIN INJ 40 MG/0.4 ML SYR SQ SCH ×2 (08:09→22:04)
[2023-01-06] MEDS: FUROSEMIDE 40 MG/4 ML VIAL IV SCH ×2 (08:10→16:51)
[2023-01-06] MEDS: POTASSIUM CHLORIDE CRTAB 20 MEQ TABCR PO SCH ×2 (08:10→22:05)
[2023-01-06] MEDS: MULTIVITAMIN TAB PO SCH (08:22)
[2023-01-06] MEDS: CALCIUM 600MG + VIT D 400 IU TAB PO SCH (08:23)
--- NOTE | 2023-01-06 14:58 | Hospitalist Progress Note ---
Date of Service January 06, 2023 Assessment & Plan (1) Cellulitis: Plan: P/w leukocytosis, tachycardia, lactate 3.0, and Procal 6.28. Concerns for sepsis 2/2 LUE cellulitis with possible olecranon bursitis Started on Cefepime/Dapto ID consulted, discontinued Cefepime CT elbow showed pocket of fluid is suggested posterior to the olecranon process, and is likely bursal in location. The sterility of this fluid cannot be assessed by imaging and clinical correlation will be essential. Ortho consulted- No intervention planned by orthopedics, did not feel needed I&D Leukocytosis resolved, erythema and edema significantly improved, afebrile Blood cultures NGTD -continue Cefazolin IV given no purulence and did not feel needed MRSA coverage -[place] [facility], plan for cefadroxil BID (or keflex if too $$) to complete 7-10 day course from 01/02 -follow clinically -follow CBC, BMP -elevate LUE and continue diuresis which will help edema (2) Sepsis: Plan: as above, now resolved (3) Hypoxia: Plan: Became hypoxic on 01/03 with wheezing, POx upper 80s on RA. Had received IVFs on admission for sepsis Pt reports she does not take her lasix at home because it makes her urinate a lot CXR w/ cardiomegaly/pulmonary vascular congestion and elevated right hemidiaphragm ECHO with preserved EF This is acute on chronic HFpEF Edema is now significantly improved but pulm edema remains with crackles on exam and hypoxia -continue Lasix 40mg IV bid -continue O2 and wean off as able to, will need repeat 2 step walk test prior to discharge -Monitor weights/I&O -Follow BMP, magnesium and replace as needed in addition to standing po KCl dose bid (4) Elevated troponin: Plan: Troponin on high sensitivity testing 71.5 --> 73.6 --> 45.6 Was hypotensive on admission Demand ischemia suspected 2nd to infection/sepsis ECG with no acute ischemic changes, NSR with PACs ECHO preserved EF and no WMAs No need to further monitor on tele (5) Morbid obesity: Plan: BMI 46.4, noted. Weight loss/dietary changes recommended. (6) Status post mastectomy: Plan: Continue anastrazole Needs f/u appt for [facility] at [facility] (7) Anxiety: Plan: -celexa 10mg daily Plan VTE Prophylaxis - Lovenox 40mg SQ BID Dispo-continued inpatient stay for cellulitis treatment and for volume overload, hypoxia. SLowly improving PT/OT consulted to see if needs rehab spoke with daughter on phone on 01/05 Admission and Anticipated Discharge Date Admission Date: January 02, 2023 Subjective Pt feeling better. Reports much less swelling in LUE and no pain. Denies cough, SOB, CP. Is eating. Tried to wean off O2 but unable to go lower than 2LNC as per RN Physical Exam Constitutional: WD/WN, vitals as above Respiratory: normal respiratory effort, lungs clear to auscultation Cardiovascular: Rate/Rhythm: regular rate and regular rhythm Extremities: + edema (2+ LUE, 1+ BLEs) Gastrointestinal (Abdomen): normal bowel sounds, soft, nontender, no hepatosplenomegaly Skin: erythema almost completely resolved in entire LUE and left upper and mid back multiple scabbed over lesions on all four extremities and trunk Psychiatric: A+Ox3, euthymic affect Results & Data Results & Data Vital Signs (Past 12 Hours) Vital Signs Temp Pulse Resp BP Pulse Ox O2 Del Method O2 Flow Rate 01/06/23 12:26 36.8 C 82 16 115/57 L 92 Nasal Cannula 01/06/23 07:21 36.8 C 85 20 117/68 92 Nasal Cannula 3 01/06/23 07:09 Nasal Cannula 2 Laboratory Results CBC, BMP, magnesium, BCxs, Ur cx reviewed PG Care Time/CCT Total # of Minutes Spent Total Time Spent with Patient: Total time spent is greater than 50% in coordination of care (as documented) at patient's floor/unit and/or counseling patient: Coding Level of Care Code 73644 SUB INP/OBS CARE 2/35MIN Diagnoses Cellulitis L03.313 Site of cellulitis: trunk Site of cellulitis of trunk: chest wall Sepsis A41.9 Sepsis type: sepsis due to unspecified organism Hypoxia R09.02 Elevated troponin R79.89 Morbid obesity E66.01 Status post mastectomy Z90.10 Anxiety F41.9 (1) Cellulitis Site of cellulitis: trunk Site of cellulitis of trunk: chest wall Qualified Code(s): L03.313 - Cellulitis of chest wall (2) Sepsis Sepsis type: sepsis due to unspecified organism Qualified Code(s): A41.9 - Sepsis, unspecified organism
[2023-01-07] MEDS: ceFAZolin 2000MG 2,000 MG/15 ML SYR IV SCH ×2 (00:02→08:32)
[2023-01-07 06:56] LABS: BUN Creatinine Ratio 28.3 (10-20); Calcium 9.4 mg/dl (8.6-10.3); Est GFR (Non-African American) 49.2 ml/min; Magnesium 1.6 mg/dl (1.7-2.4); Potassium 3.5 mmol/L (3.5-5.1)
[2023-01-07] MEDS: POTASSIUM CHLORIDE CRTAB 20 MEQ TABCR PO SCH (08:18)
[2023-01-07] MEDS: MULTIVITAMIN TAB PO SCH (08:18)
[2023-01-07] MEDS: CITALOPRAM 20 MG TAB PO SCH (08:18)
[2023-01-07] MEDS: FUROSEMIDE 40 MG/4 ML VIAL IV SCH (08:18)
[2023-01-07] MEDS: CALCIUM 600MG + VIT D 400 IU TAB PO SCH (08:19)
[2023-01-07] MEDS: ANASTROZOLE 1 MG TAB PO SCH (08:19)
[2023-01-07] MEDS: ENOXAPARIN INJ 40 MG/0.4 ML SYR SQ SCH (08:19)
[2023-01-07] MEDS ORDERED: MAGNESIUM SULFATE / D5W 1 GM/100 ML BAG IV ONE (09:56)
--- NOTE | 2023-01-07 14:59 | Discharge Summary ---
Discharge Summary Date of Service January 07, 2023 Notes For Next Care Provider Medication Changes From Visit Cefadroxil 500mg po bid x 5 more days Increase lasix to 40mg po qAM Add KCl 20 meq po qAM Admission HPI Per Admitting Provider Barb Bailon is an 82 year old female who presents to the ER with left arm/back erythema and swelling. She reports having flea bites and blisters approximately 2 weeks ago. She picks at the blisters causing multiple open lesions. 2 days ago she started noticing a rapidly increasing erythema with swelling on her left arm. No objective fevers but she is having chills. She has had lymph nodes removed from this arm and had cellulitis with eventual olecranon bursitis requiring hospitalization and IV Cefazolin in March 2022. She reports she will be following up with her oncologist next week to discuss coming off anastrazole since she has been on it for 5 years. Principal Dx & Hospital Course #1 = Principal Diagnosis (1) Cellulitis: P/w leukocytosis, tachycardia, lactate 3.0, and Procal 6.28. Concerns for sepsis 2/2 LUE cellulitis with possible olecranon bursitis Started on Cefepime/Dapto ID consulted, discontinued Cefepime and then switched Dapto to Ancef CT elbow showed pocket of fluid is suggested posterior to the olecranon process, and is likely bursal in location. The sterility of this fluid cannot be assessed by imaging and clinical correlation will be essential. Ortho consulted- No intervention planned by orthopedics, did not feel needed I&D Leukocytosis resolved, erythema and edema significantly improved, afebrile Blood cultures remain NGTD Received Cefazolin IV given no purulence and did not feel needed MRSA coverage -At [place], plan for cefadroxil BID to complete 10 day course through 01/12 -elevate LUE and continue diuresis which will help edema (2) Sepsis: as above, now resolved (3) Hypoxia: Became hypoxic on 01/03 with wheezing, POx upper 80s on RA. Had received IVFs on admission for sepsis Pt reports she does not take her lasix at home because it makes her urinate a lot CXR w/ cardiomegaly/pulmonary vascular congestion and elevated right hemidiaphragm ECHO with preserved EF This is acute on chronic HFpEF Edema is now significantly improved and pulm edema on exam and hypoxia both improving -received Lasix 40mg IV bid x 2-3 days and convert to lasix 40mg po daily on discharge along with KCl replacement -continue O2 - 2 step walk test prior to discharge shows needs 2LNC at rest and 3LNC with exertion (4) Elevated troponin: Troponin on high sensitivity testing 71.5 --> 73.6 --> 45.6 Was hypotensive on admission Demand ischemia suspected 2nd to infection/sepsis ECG with no acute ischemic changes, NSR with PACs ECHO preserved EF and no WMAs no arrhythmias on tele (5) Morbid obesity: BMI 46.4, noted. Weight loss/dietary changes recommended. (6) Status post mastectomy: Continue anastrazole Needs f/u appt with oncology (7) Anxiety: -celexa 10mg daily Plan VTE Prophylaxis - Lovenox 40mg SQ BID Dispo-dc home with home health Discharge Exam Constitutional WD/WN, vitals as above Respiratory normal respiratory effort, lungs clear to auscultation Cardiovascular Rate/Rhythm: regular rate and regular rhythm Extremities: + edema (1+ LUE, trace+ BLEs, much improved) Gastrointestinal (Abdomen) normal bowel sounds, soft, nontender, no hepatosplenomegaly Skin multiple scabbed over skin lesions on extremities erythema of LUE nad left back almost completely resolved Psychiatric A+Ox3, euthymic affect Updated Medication List Medication Instructions Recorded Confirmed Type anastrozole 1 mg tablet 1 mg PO QAM 01/23/19 01/02/23 History multivitamin 1 tab PO DAILY 11/06/21 01/02/23 History potassium gluconate 595 mg (99 mg) 99 mg PO DAILY 04/28/22 01/02/23 History tablet,extended release calcium carbonate 600 mg-vitamin 1 tab PO QAM 01/02/23 01/02/23 History D3 20 mcg (800 unit) chewable tablet (Caltrate 600 plus D) furosemide 20 mg tablet (Lasix) 20 mg PO QAM 01/02/23 01/02/23 History cefadroxil 500 mg capsule 500 mg PO BID #11 caps 01/07/23 Rx furosemide 40 mg tablet 40 mg PO QAM #30 tabs 01/07/23 Rx potassium chloride 20 mEq 20 meq PO QAM #30 tabs 01/07/23 Rx tablet,extended release(part/cryst) Hospital Stay Data Consultations 01/02/23 14:25 ED Decision to Admit Stat 01/02/23 17:57 Consult Infectious Diseases Routine 01/03/23 17:18 Consult Orthopedic Surgery Routine Diagnostic Imagining Performed 01/03/23 11:54 CT elbow LT wo con Urgent Pending Results Patient Have Any Pending Studies at Discharge: No Discharge Instructions Given to Patient (Per Discharging Provider) Please finish out 5 more days of the antibiotic for your skin infection. Try to keep the left arm elevatd above the heart as much as possible to reduce the swelling. You were overloaded with fluid,causing you to have low oxygen levels. You will need to continue to take the higher dose of furosemide and use oxygen at 2L at rest and 3L with exertion. Call your Primary Care doctor if any of the following symptoms or problems start or get worse: * Shortness of breath or difficulty breathing * Wake up at night short of breath * Chest pain * Cough * Swelling of your hands, feet, or legs * More fatigued or tired with your normal activity * Palpitations - sudden fast heart beats WEIGHT * Weigh yourself every morning after using the bathroom. * Use the same scale. * Wear the same amount of clothing. * Write your weight down on a chart. * Call your Primary Care doctor if you gain more than 2-3 pounds in 1-2 days. MEDICATIONS * Use this discharge instruction sheet for medication instructions. * Take your medications at the time your doctor ordered. * Do not skip a dose of your medicines. * If you miss a dose of medicine, take it as soon as possible, but DO NOT DOUBLE A DOSE. * Read your medicine information when you get home. * Know all of the side effects of your medicine. If in doubt, ask your pharmacist * Call your Primary Care doctor's office if you have any side effects. * Be sure all of your doctors know what medicine and herbs you take (including cold, flu, and herbal medicine). Take the following with you to your follow-up doctor appointments: * Weight Chart * Medication List * List of questions Do not drink excessive alcohol, beer or wine. Total Time Total Time Spent Total Time Spent (In Minutes): 35 min Coding Level of Care Code 19876 INP/OBS DISCH >30 MIN Diagnoses Cellulitis L03.313 Site of cellulitis: trunk Site of cellulitis of trunk: chest wall Sepsis A41.9 Sepsis type: sepsis due to unspecified organism Hypoxia R09.02 Elevated troponin R79.89 Morbid obesity E66.01 Status post mastectomy Z90.10 Anxiety F41.9
[2023-01-07] MEDS ORDERED: cephALEXin 500 MG CAP PO STA (16:34)
[2023-01-08] MEDS ORDERED: FUROSEMIDE 40 MG TAB PO SCH (09:00)
== END 2023-01-07 17:22 | disposition home health service (06) | DRG 871 ==
LOC: ED 12:03 → SUATTDRO 14:39 → EDINP 14:39 → 2W 20:15 → 3E 01-06 22:46
DX: L03.313 Cellulitis of chest wall; I50.33 Acute on chronic diastolic (congestive) heart failure; Z85.3 Personal history of malignant neoplasm of breast; E78.5 Hyperlipidemia, unspecified; R09.02 Hypoxemia; L03.114 Cellulitis of left upper limb; I11.0 Hypertensive heart disease with heart failure; Z68.42 Body mass index [BMI] 45.0-49.9, adult; Z90.12 Acquired absence of left breast and nipple; Z92.21 Personal history of antineoplastic chemotherapy; Z82.49 Family history of ischemic heart disease and other diseases of the circulatory system; Z88.8 Allergy status to other drugs, medicaments and biological substances; F32.A Depression, unspecified; L03.312 Cellulitis of back [any part except buttock and flank]; Z88.1 Allergy status to other antibiotic agents; A41.9 Sepsis, unspecified organism; M70.22 Olecranon bursitis, left elbow; F41.9 Anxiety disorder, unspecified; Z79.899 Other long term (current) drug therapy; I24.89 Other forms of acute ischemic heart disease; E66.01 Morbid (severe) obesity due to excess calories

== ENCOUNTER 2023-12-04 12:52 | Inpatient (IN) ==
[2023-12-04] MEDS ORDERED: VANCOMYCIN CONSULT ACTIVE PRN (13:10)
--- NOTE | 2023-12-04 13:12 | Emergency Department Note ---
Impression & Plan Sepsis, Cellulitis, Elevated lactic acid level ED Provider Note NAME: RENE AVILA AGE: 83 SEX: F : 1940 ARRIVES VIA: Walk-In INFORMANT: Patient ED PROVIDER(S): Tj Cintron DO CHIEF COMPLAINT: Redness of her left arm, left chest and back HPI: Patient is a 83-year-old female with a past medical history of diabetes, depression, venous stasis who presents to the ER for redness of her entire left upper extremity including her left back and left flank. She notes the skin is warm but does not believe it is significantly tender. It is not itchy. She has had this before and it was a cellulitis. She admits to fevers of 101.9 at home. Denies any belly pain, nausea, vomiting, or diarrhea. No chest pain or shortness of breath. No other exacerbating or remitting factors. ADDITIONAL HISTORY OBTAINED: Per HPI Chronic Medical/Social Conditions Affecting Care: Per HPI PAST MEDICAL HISTORY:See Below PAST SURGICAL HISTORY:See Below FAMILY HISTORY:See Below SOCIAL HISTORY:See Below HOME MEDICATIONS:See Below ALLERGIES:See Below VITALS:See Below PHYSICAL EXAMINATION: GENERAL: Sitting up in bed, alert, well appearing, well nourished, no distress, non-toxic EYE EXAM: normal conjunctiva. OROPHARYNX: mucous membranes are moist LUNGS: Clear to auscultation. Normal chest wall mechanics HEART: no murmurs, S1 normal and S2 normal ABDOMEN: abdomen soft, non-tender, normo-active bowel sounds, no masses, no rebound or guarding. BACK: Back is symmetrical on inspection and there is no deformity, no midline tenderness, no CVA tenderness. SKIN: Left arm is red warm circumferentially tracks to the chest wall and left abdomen UPPER EXTREMITIES: upper extremities are grossly normal. LOWER EXTREMITIES: No pitting edema. NEURO EXAM: Normal sensorium, cranial nerves II-XII grossly intact, normal speech, no gross weakness of arms, no gross weakness of legs. MEDICAL DECISION MAKING: Patient is an 83-year-old female who presents ER for DCU cellulitis on the left upper extremity chest wall and abdomen. Skin is warm and slightly tender. IV was established medicos obtained. Labs shows a leukocytosis of 16,000. No significant anemia. BMP with mild hyponatremia at 134. Lactic acid was elevated and trended down after 2 L of IV fluids. Troponin was elevated and do favor this secondary to sepsis. UA was contaminated. Chest x-ray was unremarkable. Patient was given IV Rocephin and vancomycin. Updated at bedside and discharged follow-up PCP as an outpatient. Consults/Care Managements Discussions: Per MDM Triage Nursing notes reviewed. Limited review of prior medical records performed Vital Signs: reviewed and remarkable for HTN Differential diagnosis: Cellulitis, abscess, MRSA infection, DVT, necrotizing fasciitis, dermatitis, drug eruption, allergic reaction, as well as other pathologies. ER treatment provided: See below Diagnostics interpreted by me include EKG and cardiac monitoring as listed below: -Cardiac Monitoring: An order was placed for continuous cardiac monitoring. The monitor shows a rate of 90 with sinus rhythm. -ECG: none -Laboratory studies:Interpreted by me as stated above in MDM and shown below. Imaging studies: Xrays: As interpreted by me: Portable AP upright 1 view of the chest shows no focal Lutrate CTs show: none Procedures:none Critical Care: None Past Med/Surg History Problem List (Updated 12/04/23 @ 17:08 by Tj Cintron DO) Elevated lactic acid level (Acute) Cellulitis (Acute) Sepsis (Acute) Sepsis H/O deep venous thrombosis Anxiety MILD Hypoxia Allergic eye reaction Hypokalemia (Acute) Chronic venous insufficiency (Chronic) Morbid obesity Status post mastectomy (Acute) Prediabetes (Acute) Lichen sclerosus et atrophicus (Acute) Hypertension (Acute) Hyperlipidemia (Acute) Urinary urgency (Acute) Health care maintenance Depression Gait disturbance Postherpetic neuralgia Neuropathy Localized swelling of both lower legs Venous stasis dermatitis Medical History Cellulitis Septic olecranon bursitis Acute respiratory failure with hypoxia Acute hyponatremia Pneumonia Extreme obesity Rash Port-A-Cath in place Dermatitis of lower extremity Infiltrating ductal carcinoma of central portion of left breast in female Pancytopenia Breast cancer History of uterine cancer Hypertension Endometrial adenocarcinoma (07/25/14) Surgical History H/O elbow surgery History of removal of Port-a-Cath (09/02/21) H/O oral surgery H/O mastectomy History of ankle surgery History of total knee replacement History of bowel resection History of colonoscopy History of bilateral tubal ligation History of left breast biopsy History of total abdominal hysterectomy and bilateral salpingo-oophorectomy Family History Sister Family history of cancer Daughter Hx of CABG Coronary heart disease Myocardial infarction Father COPD (chronic obstructive pulmonary disease) Grandfather (Maternal) Colorectal cancer Denies family history of Ovarian cancer Prostate cancer Breast cancer Social History Smoking Status: Never smoker Second Hand Exposure: No; Do You Dip or Chew Tobacco: No; Hx Alcohol Use: No Hx Substance Use: No Preferred Language: Estonian Communication Ability: Effective Visual Impairment: No Limitations Hearing Ability: Normal 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 Beliefs That Will Affect Care: None marital status: Single Current Living Situation: Family Current Living Situation Comment: Lives with daughter Matilde current occupational status: retired Feels Safe at Home: Yes Childhood Exposure to Second-Hand Smoke: No Dental Care, Regularly: No Physical Activity Frequency: 1-2 Times per Week Seatbelt Use: always Sunscreen Use: Yes Assistive Devices: Cane, Glasses and Walker Allergies Allergies Allergy/AdvReac Type Severity Reaction Status Date / Time erythromycin base AdvReac Unknown GI UPSET Verified 12/04/23 15:15 gabapentin AdvReac Unknown make sick Verified 12/04/23 15:15 - nausea Qxrhyaj-AKI-AxG Reductase AdvReac DIZZY Verified 12/04/23 15:15 Inhibitor LIGHTHEADEDNESS Home Meds Home Medications Medication Instructions Recorded Confirmed anastrozole 1 mg tablet 1 mg PO QAM 01/23/19 12/04/23 multivitamin 1 tab PO DAILY 11/06/21 12/04/23 calcium 600 mg (as carbonate)-vit 1 tab PO QAM 01/02/23 12/04/23 D3 20 mcg (800 unit) chewable tablet (Caltrate plus D) diphenhydramine HCl 25 mg capsule 25 mg PO HS PRN uknown 01/13/23 12/04/23 (Benadryl) Previous Rx's Medication Instructions Recorded Oxygen Home #1 ea 01/13/23 furosemide 40 mg tablet 40 mg PO QAM #90 tabs 02/04/23 potassium chloride 20 mEq 20 meq PO QAM #90 tabs 02/04/23 tablet,extended release(part/cryst) citalopram 10 mg tablet 10 mg PO DAILY #90 tabs 05/10/23 Results & Data (ED) Vital Signs Vital Signs - 24 hr 12/04/23 12:56 12/04/23 13:20 12/04/23 14:00 Temperature 36.3 C L 36.9 C Temperature Source Temporal Artery Scan Oral Pulse Rate 87 82 Pulse Rate [Left Finger] 82 Pulse Rhythm Regular Respiratory Rate 18 22 24 Respiratory Effort / Characteristics Non-Labored Spontaneous Respiratory Depth Normal Respiratory Pattern Regular Blood Pressure 163/70 H Blood Pressure [Right Arm] 132/71 Blood Pressure Mean 101 Blood Pressure Mean [Right Arm] 91 Pulse Oximetry 92 95 92 Oxygen Delivery Method Room Air Room Air Room Air Sepsis Recent Fever Within 48 Hours No Sepsis New/Unexplained Change in Mental Status N/A Sepsis Action Taken by Nursing No Action Required Laboratory Data 12/04/23 13:22 12/04/23 13:22 Lab Results 12/04/23 12/04/23 Range/Units 13:15 13:22 WBC 16.40 H (4.8-10.8) K/ul RBC 4.34 (4.20-5.40) M/uL Hgb 13.3 (12.0-16.0) g/dl Hct 40.4 (37.0-47.0) % MCV 93.1 (80.0-100.0) fL MCH 30.6 (25.0-34.0) pg MCHC 32.9 (32.0-36.0) g/dL RDW Std Deviation 46.5 H (36.4-46.3) fL RDW Coeff of Rosalinda 13.6 (11.5-14.5) % Plt Count 136 (130-400) K/uL MPV 9.2 L (9.4-12.4) fL Immature Gran % (Auto) 0.7 % Neut % (Auto) 86.9 % Lymph % (Auto) 8.7 % [place] % (Auto) 3.5 % Eos % (Auto) 0.0 % Baso % (Auto) 0.2 % Neut # (Auto) 14.25 H (1.40-6.50) K/uL Lymph # (Auto) 1.43 (1.20-3.40) K/uL [place] # (Auto) 0.57 (0.11-0.59) K/uL Eos # (Auto) 0.00 (0.00-0.50) K/uL Baso # (Auto) 0.04 (0.00-0.20) K/uL Immature Gran # (Auto) 0.11 (0.01-0.20) K/uL Sodium 134 L (136-145) mmol/L Potassium 3.8 (3.5-5.1) mmol/L Chloride 96 L (98-107) mmol/L Carbon Dioxide 29 (21-32) mmol/L Anion Gap 9 (3-11) BUN 19 (6-23) mg/dl Creatinine 1.19 (0.6-1.2) mg/dl Est Cr Clr Drug Dosing 50.7 ml/min eGFR 45.65 BUN/Creatinine Ratio 16.0 (10-20) Glucose 120 H (70-99(Fasting)) mg/dl Lactate 3.6 H* (0.4-2.0) mmol/L Calcium 9.2 (8.6-10.3) mg/dl Magnesium 1.6 L (1.7-2.4) mg/dl Total Bilirubin 0.7 (0.2-1.0) mg/dl Direct Bilirubin 0.2 (0-0.2) mg/dl AST 19 (13-39) U/L ALT 9 (7-52) U/L Alkaline Phosphatase 92 (34-104) U/L Troponin I High Sens 208.1 H* (0-14) pg/ml Total Protein 6.8 (6.0-8.3) gm/dl Albumin 3.4 (3.4-5.0) gm/dl Procalcitonin Cancelled Urine Color Dark Yellow Urine Appearance Turbid A (Clear) Urine pH 5.5 (4.5-7.5) Ur Specific Leslie 1.024 (1.000-1.030) Urine Protein 1+ H (Negative) Urine Glucose (UA) Negative (Negative) Urine Ketones Trace H (Negative) Urine Blood 2+ H (Negative) Urine Nitrite Negative (Negative) Urine Bilirubin Negative (Negative) Urine Urobilinogen Negative (Negative) Ur Leukocyte Esterase 3+ H (Negative) Urine WBC (Auto) >50 H (0-5) /hpf Urine RBC (Auto) 3-5 H (0-2) /hpf U Hyaline Cast (Auto) 0-2 (0-2) /lpf U Epithel Cells (Auto) >20 H (0-2) /hpf Urine Bacteria (Auto) 1+ H (None Seen) Administered Medications Discontinued Medications Ceftriaxone Sodium (Rocephin) 2,000 mg in 50 mls @ 100 mls/hr IV NOW STA Stop: 12/04/23 13:39 Last Infusion: 12/04/23 15:21 Dose: Infused Documented By: Admin: 12/04/23 13:43 Dose: 100 mls/hr Documented By: GUSTAVO Vancomycin HCl 2,500 mg/ (Sodium Chloride) 550 mls @ 200 mls/hr IV NOW ONE Stop: 12/04/23 15:54 Last Admin: 12/04/23 14:15 Dose: 200 mls/hr Documented By: GUSTAVO Sodium Chloride (Nss) 1,000 mls @ 999 mls/hr IV .Q1H1M ONE Stop: 12/04/23 15:05 Last Infusion: 12/04/23 15:22 Dose: Infused Documented By: Admin: 12/04/23 14:18 Dose: 999 mls/hr Documented By: GUSTAVO Sodium Chloride (Nss) 1,000 mls @ 999 mls/hr IV .Q1H1M ONE Stop: 12/04/23 15:19 Last Admin: 12/04/23 15:43 Dose: 999 mls/hr Documented By: LILIAN Imaging Data Radiologist's Impression: Chest X-Ray 12/04/23 13:09 XR chest 1V portable CLINICAL HISTORY: Sepsis. COMPARISON STUDY: Chest CT April 17, 2022. Chest radiograph January 05, 2023. FINDINGS: Elevation of the right hemidiaphragm is unchanged. Mild cardiomegaly and pulmonary vascular congestion are similar to prior exam. There is no pneumothorax or pleural effusion. There is no consolidation to suggest pneumonia. IMPRESSION: 1. No significant change in appearance of the chest. Cardiomegaly with pulmonary vascular congestion. 2. Stable elevation of the right hemidiaphragm. ACT 112: Negative or not required by law. Electronically signed by: Patrick Govea M.D. 12/04/2023 1:57 PM Discharge Plan Visit Data Chief Complaint: Infection Stated Complaint: CELLULITIS ON L ARM AND UPPER BODY ED Provider: Tj Cintron Discharge Problem: Sepsis, Cellulitis, Elevated lactic acid level Patient Disposition: Admitted As Inpatient Discharge Instructions Interventions: ED Discharge Assessment Last Done: 12/04/23 16:31 Discharge Problem: Sepsis Qualifiers: Sepsis type: sepsis due to unspecified organism Sepsis acute organ dysfunction status: unspecified Qualified Code(s): A41.9 - Sepsis, unspecified organism Cellulitis Qualifiers: Site of cellulitis: unspecified site Qualified Code(s): L03.90 - Cellulitis, unspecified
[2023-12-04 13:41] LABS: Basophils # (auto) 0.04 K/uL (0.00-0.20); Basophils % (auto) 0.2 %; Hematocrit (blood only) 40.4 % (37.0-47.0); Hemoglobin 13.3 g/dl (12.0-16.0); Immature Granulocytes # (auto) 0.11 K/uL (0.01-0.20); Immature Granulocytes % (auto) 0.7 %; Lymphocytes # (auto) 1.43 K/uL (1.20-3.40); Lymphocytes % (auto) 8.7 %; Mean Corpuscular Hemoglobin 30.6 pg (25.0-34.0); Mean Corpuscular Hgb Conc 32.9 g/dL (32.0-36.0); Mean Corpuscular Volume 93.1 fL (80.0-100.0); Mean Platelet Volume 9.2 fL (9.4-12.4); Monocytes # (auto) 0.57 K/uL (0.11-0.59); Monocytes % (auto) 3.5 %; Neutrophils # (auto) 14.25 K/uL (1.40-6.50); Neutrophils % (auto) 86.9 %; Platelet Count 136 K/uL (130-400); RDW Coefficient of Variation 13.6 % (11.5-14.5); RDW Standard Deviation 46.5 fL (36.4-46.3); Red Blood Count 4.34 M/uL (4.20-5.40)
[2023-12-04] MEDS: cefTRIAXone SODIUM 2,000 MG/50 ML BAG IV STA (13:43)
--- NOTE | 2023-12-04 13:46 | Electrocardiogram Report ---
Test Reason : Blood Pressure : */* mmHG Vent. Rate : 86 BPM Atrial Rate : 86 BPM P-R Int : 148 ms QRS Dur : 88 ms QT Int : 362 ms P-R-T Axes : 64 47 62 degrees QTcB Int : 433 ms Normal sinus rhythm Premature atrial complexes Otherwise Normal ECG When compared with ECG of 02-Jan-2023 15:05, Criteria for Septal infarct are no longer Present Confirmed by Maxim Chisholm ([id number]) on 12/04/2023 1:46:13 PM Referred By: REFERRED SELF Confirmed By: Maxim Chisholm
[2023-12-04 13:56] LABS: Albumin Level 3.4 gm/dl (3.4-5.0); Bilirubin Direct 0.2 mg/dl (0-0.2); Bilirubin,Total 0.7 mg/dl (0.2-1.0); Calcium 9.2 mg/dl (8.6-10.3); Creatinine Clr Calc Pharmacy 50.7 ml/min; Magnesium 1.6 mg/dl (1.7-2.4); Potassium 3.8 mmol/L (3.5-5.1); Total Protein 6.8 gm/dl (6.0-8.3)
--- NOTE | 2023-12-04 13:58 | XRay Report ---
XR chest 1V portable CLINICAL HISTORY: Sepsis. COMPARISON STUDY: Chest CT April 17, 2022. Chest radiograph January 05, 2023. FINDINGS: Elevation of the right hemidiaphragm is unchanged. Mild cardiomegaly and pulmonary vascular congestion are similar to prior exam. There is no pneumothorax or pleural effusion. There is no cons olidation to suggest pneumonia. IMPRESSION: 1. No significant change in appearance of the chest. Cardiomegaly with pulmonary vascular congestion. 2. Stable elevation of the right hemidiaphragm. ACT 112: Negative or not required by law. Electronically signed by: Patrick Govea M.D. 12/04/2023 1:57 PM
[2023-12-04 14:04] LABS: Appearance Urine Turbid (Clear); Bacteria Urine Automated 1+ (None Seen); Bilirubin Urine Negative (Negative); Blood Urine 2+ (Negative); Cast Urine Automated 0-2 /lpf (0-2); Color Urine Dark Yellow; Glucose Urine UA Negative (Negative); Ketones Urine Trace (Negative); Leukocyte Esterase Urine 3+ (Negative); Nitrite Urine Negative (Negative); Protein Urine 1+ (Negative); Specific Gravity Urine 1.024 (1.000-1.030); Urobilinogen Urine Negative (Negative); WBC Urine Automated >50 /hpf (0-5); pH Urine 5.5 (4.5-7.5)
[2023-12-04 14:06] LABS: Troponin I High Sensitivity 208.1 pg/ml (0-14)
[2023-12-04] MEDS: VANCOMYCIN HCL 2,500 MG in SODIUM CHLORIDE 0.9% 500 ML IV ONE (14:15)
[2023-12-04 14:17] LABS: Epithelial Cell Urine Auto >20 /hpf (0-2)
[2023-12-04] MEDS: SODIUM CHLORIDE 0.9% 1,000 ML IV ONE ×2 (14:18→15:43)
--- NOTE | 2023-12-04 15:03 | History & Physical Report ---
Date of Service December 04, 2023 Assessment & Plan (1) Cellulitis: Plan: This is an 83-year-old female with past medical history of diabetes, depression, venous stasis who presented to the ED on 12/04/2023 with chief complaints of left sided cellulitis. Patient with redness to her left upper extremity, left chest wall, and left back. Meets sepsis criteria with source cellulitis of LUE. IV Rocephin and IV Vancomycin given in ED. Continue IV Rocephin If MRSA swab negative, can discontinue vancomycin. patient denied hx of MRSA infx. Tylenol as needed for pain/fevers Blood cultures pending Urine culture pending - urinalysis + for infection but patient asymptomatic from urinary standpoint. CXR unchanged from previous Troponin elevated upon admission at 208.1, repeat pending Patient without chest pain or SOB today. EKG revealed normal sinus with no signs of ischemia. Elevated likely due to demand from cellulitis/sepsis Lactate elevated upon admission at 3.6, repeat pending CBC revealing of leukocytosis w/ WBC of 16.40. BMP revealing mild hyponatremia of 134, kidney function/electrolytes stable. Magnesium low at 1.6, s/p 1x 1g IV. AM CBC, BMP, Magnesium (2) Sepsis: Plan: see plan above Plan Chronic conditions: History of breast cancer: anastrozole Mental health: citalopram Lower extremity edema: Lasix Diet: carb consistent DVT prophylaxis: Lovenox 40mg daily Disposition: med/surg Code status: DNR/DNI History of Present Illness Primary Care Provider: Rico Goetz MD This is an 83-year-old female with past medical history of diabetes, depression, venous stasis who presented to the ED on 12/04/2023 with chief complaints of left sided cellulitis. The patient was previously seen at an [facility] earlier today who had recommended that she report to the ER as there were concerning symptoms for sepsis. Patient states that yesterday she noticed that her arm started to become red in color. It is warm to touch but she denies any tenderness to palpation or pain. She has a history of this happening in the past. She states that she does pick at her skin and she is aware that is what is causing recurrent episodes. She did have an episode in March 2022 resulting with IV cefazolin and olecranon bursitis. She was febrile at time of presentation to the ED but her temperature is now 36.9 C. She states that she was slightly short of breath yesterday but states that this is went away. She denies any current shortness of breath or chest pain. She denies nausea, vomiting, abdominal pain. She does have chronic leg edema and does wear compression stockings. On the ED she was given IV fluids, IV Rocephin, IV vancomycin. Allergies Allergy/AdvReac Type Severity Reaction Status Date / Time erythromycin base AdvReac Unknown GI UPSET Verified 12/04/23 15:15 gabapentin AdvReac Unknown make sick Verified 12/04/23 15:15 - nausea Zdccope-XZQ-IzD Reductase AdvReac DIZZY Verified 12/04/23 15:15 Inhibitor LIGHTHEADEDNESS Home Medications Medication Instructions Recorded Confirmed Type anastrozole 1 mg tablet 1 mg PO QAM 01/23/19 12/04/23 History multivitamin 1 tab PO DAILY 11/06/21 12/04/23 History calcium 600 mg (as carbonate)-vit 1 tab PO QAM 01/02/23 12/04/23 History D3 20 mcg (800 unit) chewable tablet (Caltrate plus D) Oxygen Home #1 ea 01/13/23 12/04/23 Rx diphenhydramine HCl 25 mg capsule 25 mg PO HS PRN uknown 01/13/23 12/04/23 History (Benadryl) furosemide 40 mg tablet 40 mg PO QAM #90 tabs 02/04/23 12/04/23 Rx potassium chloride 20 mEq 20 meq PO QAM #90 tabs 02/04/23 12/04/23 Rx tablet,extended release(part/cryst) citalopram 10 mg tablet 10 mg PO DAILY #90 tabs 05/10/23 12/04/23 Rx Past Med/Surg History Problem List (Updated 12/04/23 @ 17:08 by Tj Cintron DO) Elevated lactic acid level (Acute) Cellulitis (Acute) Sepsis (Acute) Sepsis H/O deep venous thrombosis Anxiety MILD Hypoxia Allergic eye reaction Hypokalemia (Acute) Chronic venous insufficiency (Chronic) Morbid obesity Status post mastectomy (Acute) Prediabetes (Acute) Lichen sclerosus et atrophicus (Acute) Hypertension (Acute) Hyperlipidemia (Acute) Urinary urgency (Acute) Health care maintenance Depression Gait disturbance Postherpetic neuralgia Neuropathy Localized swelling of both lower legs Venous stasis dermatitis Medical History Cellulitis Septic olecranon bursitis Acute respiratory failure with hypoxia Acute hyponatremia Pneumonia Extreme obesity Rash Port-A-Cath in place Dermatitis of lower extremity Infiltrating ductal carcinoma of central portion of left breast in female Pancytopenia Breast cancer History of uterine cancer Hypertension Endometrial adenocarcinoma (07/25/14) Surgical History H/O elbow surgery History of removal of Port-a-Cath (09/02/21) H/O oral surgery H/O mastectomy History of ankle surgery History of total knee replacement History of bowel resection History of colonoscopy History of bilateral tubal ligation History of left breast biopsy History of total abdominal hysterectomy and bilateral salpingo-oophorectomy Family History Sister Family history of cancer Daughter Hx of CABG Coronary heart disease Myocardial infarction Father COPD (chronic obstructive pulmonary disease) Grandfather (Maternal) Colorectal cancer Denies family history of Ovarian cancer Prostate cancer Breast cancer Social History Smoking Status: Never smoker Second Hand Exposure: No; Do You Dip or Chew Tobacco: No; Tobacco Cessation Education Requested by Patient: No Hx Alcohol Use: No Hx Substance Use: No Preferred Language: Yemeni Communication Ability: Effective Visual Impairment: No Limitations Hearing Ability: Normal 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 Beliefs That Will Affect Care: None marital status: Single Current Living Situation: Family Current Living Situation Comment: lives with daughter and daughter's children current occupational status: retired Other Information That Helps Us Care for You: No Feels Safe at Home: Yes Safety Concerns: Feels Safe At This Time Childhood Exposure to Second-Hand Smoke: No Dental Care, Regularly: No Physical Activity Frequency: 1-2 Times per Week Seatbelt Use: always Sunscreen Use: Yes Assistive Devices: Cane, Glasses and Walker Physical Exam 2 Constitutional: WD/WN, vitals as above Eyes: PERRL, conjunctivae normal, anicteric sclerae Respiratory: normal respiratory effort, lungs clear to auscultation Cardiovascular: regular rhythm, regular rate. no murmur. b/l lower extremity edema. Skin: erythema to left upper extremity, left back (thoracic and lumbar region), and left chest wall. Warm to touch. No drainage observed. small open skin wound on left arm Psychiatric: A+Ox3, euthymic affect Results & Data Results & Data Vital Signs (Past 12 Hours) Vital Signs Temp Pulse Pulse Resp BP BP Pulse Ox 12/04/23 14:00 36.9 C 82 24 132/71 92 12/04/23 13:20 82 22 95 12/04/23 12:56 36.3 C L 87 18 163/70 H 92 O2 Del Method 12/04/23 14:00 Room Air 12/04/23 13:20 Room Air 12/04/23 12:56 Room Air Laboratory Results 12/04/23 13:22 12/04/23 13:22 Diagnostic Findings Chest X-Ray 12/04/23 13:09 XR chest 1V portable CLINICAL HISTORY: Sepsis. COMPARISON STUDY: Chest CT April 17, 2022. Chest radiograph January 05, 2023. FINDINGS: Elevation of the right hemidiaphragm is unchanged. Mild cardiomegaly and pulmonary vascular congestion are similar to prior exam. There is no pneumothorax or pleural effusion. There is no consolidation to suggest pneumonia. IMPRESSION: 1. No significant change in appearance of the chest. Cardiomegaly with pulmonary vascular congestion. 2. Stable elevation of the right hemidiaphragm. ACT 112: Negative or not required by law. Supervising Physician Co-Signing Physician Notes I personally saw and examined the patient. I independently reviewed the labs, EKG, imaging, problem list, medication list, past medical history and family history. I verified all dailey points and agree with Carey Medley PA-C with the following exceptions and/or additions: 83 year old female presents to the ER with rapid onset cellulitis over left arm, chest wall and back. No fever. O/E HS RRR, no murmurs, Noah CTAB, Abdo SNT, erythema and swelling as above pictures covering left arm, back, chest and abdominal wall on left side. A/P Cellulitis - lactate 3.6 -> 2.0, total 2L NSS bolus given, ceftriaxone, MRSA nasal swab negative therefore vancomycin stopped, follow up blood cultures PG Care Time/CCT Total # of Minutes Spent Total Time Spent with Patient: Total time spent is greater than 50% in coordination of care (as documented) at patient's floor/unit and/or counseling patient: Coding Level of Care Code 69317 INT INP/OBS CARE MIN Diagnoses Cellulitis L03.313 Site of cellulitis: trunk Site of cellulitis of trunk: chest wall Sepsis A41.9 (1) Cellulitis Site of cellulitis: trunk Site of cellulitis of trunk: chest wall Qualified Code(s): L03.313 - Cellulitis of chest wall
[2023-12-04] MEDS ORDERED: ONDANSETRON INJ 2 MG/ML 2 ML VIAL IV PRN (16:37)
[2023-12-04] MEDS ORDERED: ACETAMINOPHEN 325 MG TAB PO PRN (16:37)
[2023-12-04] MEDS: MAGNESIUM SULFATE / D5W 1 GM/100 ML BAG IV ONE (17:12)
[2023-12-04] MEDS: ENOXAPARIN INJ 40 MG/0.4 ML SYR SQ SCH (20:14)
[2023-12-04] MEDS ORDERED: ENOXAPARIN INJ 40 MG/0.4 ML SYR SQ SCH (21:00)
[2023-12-05 07:27] VITALS: RESP 18
[2023-12-05] MEDS: FUROSEMIDE 40 MG TAB PO SCH (08:56)
[2023-12-05] MEDS: POTASSIUM CHLORIDE CRTAB 20 MEQ TABCR PO SCH (08:56)
[2023-12-05] MEDS: ANASTROZOLE 1 MG TAB PO SCH (08:56)
[2023-12-05] MEDS: CITALOPRAM 20 MG TAB PO SCH (08:56)
[2023-12-05 09:56] LABS: Basophils # (auto) 0.03 K/uL (0.00-0.20); Basophils % (auto) 0.3 %; Eosinophils # (auto) 0.09 K/uL (0.00-0.50); Eosinophils % (auto) 0.8 %; Hematocrit (blood only) 37.7 % (37.0-47.0); Hemoglobin 12.4 g/dl (12.0-16.0); Immature Granulocytes # (auto) 0.05 K/uL (0.01-0.20); Immature Granulocytes % (auto) 0.5 %; Lymphocytes % (auto) 9.1 %; Mean Corpuscular Hemoglobin 30.8 pg (25.0-34.0); Mean Corpuscular Hgb Conc 32.9 g/dL (32.0-36.0); Mean Corpuscular Volume 93.8 fL (80.0-100.0); Mean Platelet Volume 9.4 fL (9.4-12.4); Monocytes # (auto) 0.33 K/uL (0.11-0.59); Neutrophils # (auto) 9.44 K/uL (1.40-6.50); Neutrophils % (auto) 86.3 %; Platelet Count 122 K/uL (130-400); RDW Coefficient of Variation 13.7 % (11.5-14.5); RDW Standard Deviation 47.5 fL (36.4-46.3); Red Blood Count 4.02 M/uL (4.20-5.40); White Blood Count 10.94 K/ul (4.8-10.8)
[2023-12-05 10:09] LABS: BUN Creatinine Ratio 16.8 (10-20); Calcium 8.8 mg/dl (8.6-10.3); Creatinine Clr Calc Pharmacy 60.5 ml/min; Magnesium 1.8 mg/dl (1.7-2.4); Potassium 3.8 mmol/L (3.5-5.1)
[2023-12-05] MEDS: cefTRIAXone SODIUM 2,000 MG/50 ML BAG IV SCH (13:15)
--- NOTE | 2023-12-05 14:09 | Hospitalist Progress Note ---
Date of Service December 05, 2023 Assessment & Plan (1) Cellulitis: Plan: This is an 83-year-old female with past medical history of diabetes, depression, venous stasis who presented to the ED on 12/04/2023 with chief complaints of left sided cellulitis. Patient with redness to her left upper extremity, left chest wall, and left back. Meets sepsis criteria with source cellulitis of LUE. IV Rocephin and IV Vancomycin given in ED. Continue IV Rocephin (first day 12/03) MRSA neg, vancomycin discontinued Blood cultures no growth 24 hours Urine culture: GNB - pt denies urinary symptoms Troponin mildly elevated, peaked at 208 Patient without chest pain or SOB EKG revealed normal sinus with no signs of ischemia. Elevated likely due to demand from cellulitis/sepsis Lactate elevated upon admission at 3.6 --> 2.0 Mag replete (2) Sepsis: Plan: see plan above Plan Chronic conditions: History of breast cancer: anastrozole Mental health: citalopram Lower extremity edema: Lasix DVT prophylaxis: Lovenox 40mg daily Disposition: continued inpatient stay for IV abx Admission and Anticipated Discharge Date Admission Date: December 04, 2023 Supervising Physician Co-Signing Physician Notes NIC Supervision Note: I did not personally see or examine the patient today, but I verified all dailey points of NIC King's assessment and plan with the following exceptions/additions: None Subjective Patient seen lying in bed, states that her arm is feeling much better. She states picked at a wound on her arm and rapidly progressed she denies pain to the arm. Has been ambulating around the room Review of Systems Review of Systems: All systems reviewed & are unremarkable except as noted in Subjective Physical Exam Physical Exam: General: NAD, VS as above Resp: normal respiratory effort, lungs clear to auscultation CV: RRR, no murmur, Extremities: Moves all extremities, erythema on left arm stops about 1[address] between shoulder and elbow, warm to touch, mild edema compared to right arm. back without any erythema. faint erythema to left side of stomach much improved from pictures in the H&P Neuro: A&O x3, Results & Data Results & Data Vital Signs (Past 12 Hours) Vital Signs Temp Pulse Resp BP Pulse Ox Pulse Ox O2 Del Method 12/05/23 13:11 96 10/07/24 07:26 98.1 F 83 18 113/60 94 Room Air 12/05/23 07:10 Room Air O2 Del Method 12/05/23 13:11 Room Air 12/05/23 07:26 12/05/23 07:10 Laboratory Results CBC, chemistry and Mag reviewed PG Care Time/CCT Total # of Minutes Spent Total Time Spent with Patient: Total time spent is greater than 50% in coordination of care (as documented) at patient's floor/unit and/or counseling patient: Coding Level of Care Code 84317 SUB INP/OBS CARE 2/35MIN Diagnoses Cellulitis L03.313 Site of cellulitis: trunk Site of cellulitis of trunk: chest wall Sepsis A41.9 (1) Cellulitis Site of cellulitis: trunk Site of cellulitis of trunk: chest wall Qualified Code(s): L03.313 - Cellulitis of chest wall
[2023-12-06 06:54] LABS: Basophils # (auto) 0.02 K/uL (0.00-0.20); Basophils % (auto) 0.3 %; Eosinophils # (auto) 0.14 K/uL (0.00-0.50); Eosinophils % (auto) 2.2 %; Hematocrit (blood only) 35.9 % (37.0-47.0); Hemoglobin 11.9 g/dl (12.0-16.0); Immature Granulocytes # (auto) 0.02 K/uL (0.01-0.20); Immature Granulocytes % (auto) 0.3 %; Lymphocytes # (auto) 1.15 K/uL (1.20-3.40); Lymphocytes % (auto) 18.1 %; Mean Corpuscular Hemoglobin 30.7 pg (25.0-34.0); Mean Corpuscular Hgb Conc 33.1 g/dL (32.0-36.0); Mean Corpuscular Volume 92.5 fL (80.0-100.0); Mean Platelet Volume 9.3 fL (9.4-12.4); Monocytes # (auto) 0.43 K/uL (0.11-0.59); Monocytes % (auto) 6.8 %; Neutrophils # (auto) 4.58 K/uL (1.40-6.50); Neutrophils % (auto) 72.3 %; Platelet Count 120 K/uL (130-400); RDW Coefficient of Variation 13.7 % (11.5-14.5); RDW Standard Deviation 46.5 fL (36.4-46.3); Red Blood Count 3.88 M/uL (4.20-5.40); White Blood Count 6.34 K/ul (4.8-10.8)
[2023-12-06 07:16] LABS: Calcium 8.6 mg/dl (8.6-10.3); Creatinine Clr Calc Pharmacy 61.1 ml/min; Potassium 3.7 mmol/L (3.5-5.1)
[2023-12-06 07:31] VITALS: BP 134/78; PULSE 78; TEMP 98.1; O2SAT 93
--- NOTE | 2023-12-06 11:36 | Discharge Summary ---
Discharge Summary Date of Service December 06, 2023 Principal Dx & Hospital Course #1 = Principal Diagnosis (1) Cellulitis: This is an 83-year-old female with past medical history of diabetes, depression, venous stasis who presented to the ED on 12/04/2023 with chief complaints of left sided cellulitis. Patient with redness to her left upper extremity, left chest wall, and left back. Meets sepsis criteria with source cellulitis of LUE. received IV Rocephin, discharged on ceftriaxone and doxycycline for 7 additional days Blood cultures no growth 24 hours Urine culture: pansensitive Klebsiella, patient asymptomatic but should be covered with her antibiotics for the cellulitis Troponin mildly elevated, peaked at 208 Patient without chest pain or SOB EKG revealed normal sinus with no signs of ischemia. Elevated likely due to demand from cellulitis/sepsis Lactate elevated upon admission at 3.6 --> 2.0 Mag replete (2) Sepsis: see plan above Plan Chronic conditions: History of breast cancer: anastrozole Mental health: citalopram Lower extremity edema: Lasix dispo: Discharge to home today Notes For Next Care Provider continued course of p.o. antibiotics for cellulitis Medication Changes From Visit doxycycline and Keflex x 7 days Admission HPI Per Admitting Provider This is an 83-year-old female with past medical history of diabetes, depression, venous stasis who presented to the ED on 12/04/2023 with chief complaints of left sided cellulitis. The patient was previously seen at an [facility] earlier today who had recommended that she report to the ER as there were concerning symptoms for sepsis. Patient states that yesterday she noticed that her arm started to become red in color. It is warm to touch but she denies any tenderness to palpation or pain. She has a history of this happening in the past. She states that she does pick at her skin and she is aware that is what is causing recurrent episodes. She did have an episode in March 2022 resulting with IV cefazolin and olecranon bursitis. She was febrile at time of presentation to the ED but her temperature is now 36.9 C. She states that she was slightly short of breath yesterday but states that this is went away. She denies any current shortness of breath or chest pain. She denies nausea, vomiting, abdominal pain. She does have chronic leg edema and does wear compression s tockings. On the ED she was given IV fluids, IV Rocephin, IV vancomycin. Discharge Exam General: NAD, VS as above Resp: normal respiratory effort, lungs clear to auscultation CV: RRR, no murmur, Extremities: Moves all extremities, erythema on left arm improved from yesterday, no longer warm to the touch, edema improved. back without any erythema. stomach erythema has resolved Neuro: A&O x3, Discharge Plan Discharge Items Patient Disposition: Home - Self-Care Reason For Visit: CELLULITIS Discharge Diagnosis: LUE cellulitis Activity: Resume your previous activity Non-emergency contact: Primary Care Provider Call non-emergency contact if: you have any medication questions, your symptoms worsen and your temperature is above 101 Follow-up/Referrals: Rico Goetz MD [Primary Care Provider] - 12/13/23 3:00 pm (follow up within 7 days ) Diet: Carb Consistent or DM2 Addtl Attending Provider Instructions: Ms. Bailon, Jeff were hospitalized after worsening cellulitis infection of the arm. Thankfully this has improved with IV antibiotics. You were also found to have a UTI. You will be discharged on two antibiotics - doxycycline and Keflex. Make sure to take the doxycycline with food. Recommendations after discharge: * Please keep the area clean and dry * you can use unscented barrier cream/lotion like Aquaphor after showering if itchy. Avoid scented soaps or lotions * Keep arm elevated while swelling continues to improve * take full course of antibiotics even if you start to feel better * Follow up with your PCP within the next week * Do not pick at future bug bites! Put a bandage over them if you can't help yourself! You have blood cultures pending at the time of discharge, they are negative at 24 hours but take 5 days to get final results. If they turn positive, you will be notified; you can also check in with your PCP or the [facility] portal. However, given your symptoms are improving, I do not expect they will be positive. CONTACT YOUR PRIMARY CARE PROVIDER if you experience any of the following: Shortness of breath or difficulty breathing Fevers or chills Feeling tired with normal activity or experiencing dizziness or fainting Difficulty following your treatment plan, or difficulty taking medications - worsening rash CALL 911 OR GO TO THE EMERGENCY DEPARTMENT if you experience any of the following: Severe abdominal pain or nausea/vomiting Severe chest pain, or chest pain that radiates (moves) to your jaw or arm Sudden, severe shortness of breath or difficulty breathing Thank you for allowing us to participate in your care. Pending Studies at Discharge: Yes (blood cultures ) Stand-Alone Forms: My [facility], Smoking Cessation Medications and DC Order Prescriptions: New doxycycline hyclate 100 mg capsule 100 mg PO BID 7 Days Qty: 14 0RF Rx Instructions: take with food - start AM 10 cephalexin 500 mg capsule 500 mg PO QID 7 Days Qty: 28 0RF Rx Instructions: start AM 10 Continued (DME) Oxygen Home Liters Per Minute See Rx Instructions .Route Qty: 1 0RF Hold Instructions: No longer using Rx Instructions: 2L at rest and 3L with exertion furosemide 40 mg tablet 40 mg PO QAM Qty: 90 3RF potassium chloride 20 mEq tablet,ER particles/crystals 20 meq PO QAM Qty: 90 3RF citalopram 10 mg tablet 10 mg PO DAILY Qty: 90 3RF multivitamin Tablet 1 tab PO DAILY diphenhydramine HCl [Benadryl] 25 mg capsule 25 mg PO HS PRN (Reason: uknown) anastrozole 1 mg tablet 1 mg PO QAM Caltrate 600 plus D 600 mg-20 mcg (800 unit) Tablet,Chewable 1 tab PO QAM Discharge Orders: Discharge Order (Routine); Ordered 12/06/23 Ordered By: Aranza King Admission Data Admit Date/Time: 12/04/23 14:38 Attending Provider: Genesis Yu Admit Provider: Simón Sunshine Primary Care Provider: Rico Goetz V. Other Providers: Simón Sunshine Hospital Stay Data Consultations 12/04/23 14:05 ED Decision to Admit Stat Diagnostic Imagining Performed Chest X-Ray 12/04/23 13:09 XR chest 1V portable CLINICAL HISTORY: Sepsis. COMPARISON STUDY: Chest CT April 17, 2022. Chest radiograph January 05, 2023. FINDINGS: Elevation of the right hemidiaphragm is unchanged. Mild cardiomegaly and pulmonary vascular congestion are similar to prior exam. There is no pneumothorax or pleural effusion. There is no consolidation to suggest pneumonia. IMPRESSION: 1. No significant change in appearance of the chest. Cardiomegaly with pulmonary vascular congestion. 2. Stable elevation of the right hemidiaphragm. ACT 112: Negative or not required by law. Electronically signed by: Patrick Govea M.D. 12/04/2023 1:57 PM Pending Results Patient Have Any Pending Studies at Discharge: Yes (blood cultures ) Discharge Instructions Given to Patient (Per Discharging Provider) Ms. Bailon, You were hospitalized after worsening cellulitis infection of the arm. Thankfully this has improved with IV antibiotics. You were also found to have a UTI. You will be discharged on two antibiotics - doxycycline and Keflex. Make sure to take the doxycycline with food. Recommendations after discharge: * Please keep the area clean and dry * you can use unscented barrier cream/lotion like Aquaphor after showering if itchy. Avoid scented soaps or lotions * Keep arm elevated while swelling continues to improve * take full course of antibiotics even if you start to feel better * Follow up with your PCP within the next week * Do not pick at future bug bites! Put a bandage over them if you can't help yourself! You have blood cultures pending at the time of discharge, they are negative at 24 hours but take 5 days to get final results. If they turn positive, you will be notified; you can also check in with your PCP or the [facility] portal. However, given your symptoms are improving, I do not expect they will be positive. CONTACT YOUR PRIMARY CARE PROVIDER if you experience any of the following: Shortness of breath or difficulty breathing Fevers or chills Feeling tired with normal activity or experiencing dizziness or fainting Difficulty following your treatment plan, or difficulty taking medications - worsening rash CALL 911 OR GO TO THE EMERGENCY DEPARTMENT if you experience any of the following: Severe abdominal pain or nausea/vomiting Severe chest pain, or chest pain that radiates (moves) to your jaw or arm Sudden, severe shortness of breath or difficulty breathing Thank you for allowing us to participate in your care. Supervising Physician Co-Signing Physician Notes NIC Supervision Note: I personally saw and examined the patient. I verified all dailey points and agree with NIC King with the following exceptions and/or additions: S-Pt feeling much better, less swelling and redness of LUE. Denies diarrhea, CP, SOB, other issues, anxious for discharge O- Vitals reviewed Gen: [AAOx3, NAD,obese] HEENT: [anicteric sclerae CV: [RRR no mgr nl S1S2] Pulm: [CTAB no wcr] Ext: LUE with 2+ edema, mild circumferential erythema of entire arm, no fluctuance or tenderness CBC, BMP, blood cxs reviewed A/P-83 yo female with a h/o DMII, Breast CA s/p left mastectomy and LN dissection, here with LUE cellulitis,sepsis. Much improved continue broad spectrum abx on dc with keflex and doxy for total 10 days Stable for dc to home Total Time Total Time Spent Total Time Spent (In Minutes): Time spent day of discharge 35 minutes including direct patient care, medication reconciliation, documentation, review of labs and images, and coordination of care. Coding Level of Care Code 90689 INP/OBS DISCH >30 MIN Diagnoses Cellulitis L03.313 Site of cellulitis: trunk Site of cellulitis of trunk: chest wall Sepsis A41.9
== END 2023-12-06 15:47 | disposition home or self-care (01) | DRG 872 ==
LOC: ED 12:52 → EDINP 14:38 → SUATTDRO 14:38 → 3N 16:31